=== PATIENT | male | born 1930 | race Caucasian/White ===

== ENCOUNTER 2017-05-02 09:52 | Inpatient (IN) | payer MEDICARE, OTHER ==
[2017-05-02] MEDS ORDERED: ALBUTEROL SULFATE 0.083% NEB 2.5 MG/3 ML AMPUL NEB ONE (10:16)
--- NOTE | 2017-05-02 10:21 | ER Document Report ---
ED Respiratory Problem - General Mode of Arrival: Medic Information source: Patient, Emergency Med Personnel TRAVEL OUTSIDE OF THE [place] IN LAST 30 DAYS: No - HPI Patient complains to provider of: COPD, Short of breath Onset: Other - 2 days ago Context: Hx COPD At home treatment: Bronchodilators EMS treatments: Bronchodilators, CPAP, Epinephrine - with magnesium, Solumedrol Associated symptoms: Other - see notes above <MAGDALENO MICHEL - Last Filed: 05/02/17 16:18> <CLIVE REYES - Last Filed: 05/02/17 19:07> - General Chief Complaint: Shortness Of Breath Stated Complaint: RESPIRATORY DISTRESS Time Seen by Provider: 05/02/17 10:02 Notes: 87 year old male with history of COPD presents to the ED via EMS complaining of shortness of breath for the past 2 days. Patient uses an inhaler at home and reports that it was mildly helping yesterday, but was having little relief from it this morning. Patient denies chest pain or fever. EMS reports that the patient was in respiratory distress when they arrived. They had to walk the patient a short distance to help him onto the stretcher and EMS reports almost absent lung sounds following the walk. Patient was given 2 Albuterol, 1 Solumedrol, Epi, and Magnesium and placed on CPAP. Patient has an appointment with his primary care physician, Dr. Casanova, today at 1445. (MAGDALENO MICHEL) - Related Data Allergies/Adverse Reactions: No Known Allergies Allergy (Unverified 05/02/17 10:38) Home Medications: Current Home Medications Amlodipine Besylate/Valsartan [Amlodipine-Valsartan 5-320 mg] 1 tab PO QHS 05/02 [History] Furosemide [Lasix 40 mg Tablet] 40 mg PO QAM 05/02/17 [History] Levalbuterol HCl [Xopenex Neb 0.63 mg/3 ml Ampul] 0.63 mg NEB [id number] PRN [History] Multivitamin [Tab-A-Jadiel (Multiple Vitamin) Tablet] 1 tab PO DAILY 05/02/17 [ History] Timolol [Betimol] 1 drop OU QHS 05/02/17 [History] Past Medical History - General Information source: Patient - Social History Smoking Status: Never Smoker Chew tobacco use (# tins/day): No Frequency of alcohol use: None Drug Abuse: None Family History: Reviewed & Not Pertinent - Past Medical History Cardiac Medical History: Denies: Hx Congestive Heart Failure, Hx Heart Attack Pulmonary Medical History: Reports: Hx COPD Neurological Medical History: Denies: Hx Cerebrovascular Accident Surgical Hx: Negative <MICHELMAGDALENO - Last Filed: 05/02/17 16:18> Review of Systems - Review of Systems Constitutional: No symptoms reported. denies: Fever EENT: No symptoms reported Cardiovascular: No symptoms reported. denies: Chest pain Respiratory: See HPI, Short of breath Gastrointestinal: No symptoms reported Genitourinary: No symptoms reported Male Genitourinary: No symptoms reported Musculoskeletal: No symptoms reported Skin: No symptoms reported Hematologic/Lymphatic: No symptoms reported Neurological/Psychological: No symptoms reported -: Yes All other systems reviewed and negative <MICHELMAGDALENO - Last Filed: 05/02/17 16:18> Physical Exam <MAGDALENO MICHEL - Last Filed: 05/02/17 16:18> <CLIVE REYES - Last Filed: 05/02/17 19:07> - Vital signs Vitals: Resp Pulse Ox 21 H 95 05/02/17 10:03 05/02/17 10:03 - Notes Notes: GENERAL: Alert, interacts well. HEAD: Normocephalic, atraumatic. EYES: Pupils equal, round, and reactive to light. Extraocular movements intact. ENT: Oral mucosa moist, tongue midline. NECK: Full range of motion. Supple. Trachea midline. 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 LUNGS: Crackles at the bilateral bases with trace expiratory wheezing. No rales or rhonchi. Patient appears comfortable on BiPAP. Not hypoxic. HEART: Bradycardic with regular rhythm. No murmurs, gallops, or rubs. ABDOMEN: Soft, non-tender. Non-distended. Bowel sounds present in all 4 quadrants. Soft, reducible, non-tender umbilical hernia. EXTREMITIES: Moves all 4 extremities spontaneously. Radial and dorsalis pedis pulses 2/4 bilaterally. No cyanosis. 2+ pitting edema to the level of the knees , bilaterally. Bilateral erythema one-third of the way up to the knees. NEUROLOGICAL: Alert and oriented x3. Normal speech. PSYCH: Normal affect, normal mood. SKIN: Warm and dry. (MAGDALENO MICHEL) Course - Laboratory Result Diagrams: 05/02/17 10:15 05/02/17 10:15 - Consults Marco A Peterson Time consulted: 12:20 <MAGDALENO MICHEL - Last Filed: 05/02/17 16:18> - Laboratory Result Diagrams: 05/02/17 10:15 05/02/17 10:15 <CLIVE REYES - Last Filed: 05/02/17 19:07> - Re-evaluation Re-evalutation: 05/02/17 19:06 CBC shows leukocytosis of 13.5, no anemia, regular platelets, renal failure with a BUN of 31 and a creatinine 1.51 is seen on chemistries, cardiac enzymes reveal indeterminate troponin at 0.088, proBNP is markedly elevated at 9000, urinalysis shows large leukocyte esterase and 29 WBCs. Patient is completely asymptomatic, this will be sent for culture but not treated at this time. Chest x-ray shows right sided pneumonia. Patient will be treated both for pneumonia and acute congestive heart failure. Patient was also given breathing treatments for COPD exacerbation. Discussed case with Dr. Canchola who asked me to discuss with Marco A Peterson the nurse practitioner who accepted the patient as an admission. Placed on the IMCU. (CLIVE REYES) - Vital Signs Vital signs: Temp Pulse Resp BP Pulse Ox 98.2 F 46 L 24 H 130/33 H 99 05/02/17 18:20 05/02/17 18:20 05/02/17 18:20 05/02/17 18:20 05/02/17 18:20 - Laboratory Laboratory results interpreted by me: 05/02/17 05/02/17 05/02/17 10:15 10:15 10:15 WBC 13.5 H RDW 14.7 H Seg Neutrophils % 82.1 H Lymphocytes % 8.3 L Absolute Neutrophils 11.1 H BUN 31 H Creatinine 1.51 H Est GFR ( Amer) 53 L Est GFR (Non-Af Amer) 44 L Glucose 145 H Direct Bilirubin 0.5 H NT-Pro-B Natriuret Pep 9000 H Total Protein 5.9 L Ur Leukocyte Esterase Urine Ascorbic Acid 05/02/17 12:28 WBC RDW Seg Neutrophils % Lymphocytes % Absolute Neutrophils BUN Creatinine Est GFR ( Amer) Est GFR (Non-Af Amer) Glucose Direct Bilirubin NT-Pro-B Natriuret Pep Total Protein Ur Leukocyte Esterase LARGE H Urine Ascorbic Acid 40 H - EKG Interpretation by Me Additional EKG results interpreted by me: 05/02/17 19:07 EKG shows sinus rhythm at a rate of 72, first-degree AV block, multiple PACs, right bundle branch block, no ST segment elevations or depressions per my interpretation. (CLIVE REYES) - Consults Marco A Peterson Reason for consultation: 05/02/17 12:20 Patient was discussed with Marco A Peterson who agrees to admit the patient. (MAGDALENO MICHEL) Discharge <MAGDALENO MICHEL - Last Filed: 05/02/17 16:18> - Discharge Admitting Provider: [facility] Admitted: IMCU <CLIVE REYES - Last Filed: 05/02/17 19:07> - Discharge Clinical Impression: Acute respiratory failure with hypoxia CHF (congestive heart failure) Qualifiers: Congestive heart failure type: unspecified congestive heart failure type Congestive heart failure chronicity: acute Qualified Code(s): I50.9 - Heart failure, unspecified ARF (acute renal failure) Qualifiers: Acute renal failure type: unspecified Qualified Code(s): N17.9 - Acute kidney failure, unspecified Right lower lobe pneumonia Qualifiers: Pneumonia type: due to unspecified organism Qualified Code(s): J18.1 - Lobar pneumonia, unspecified organism Condition: Fair Disposition: ADMITTED INPATIENT Scribe Attestation: 05/02/17 19:06 I personally performed the services described in the documentation, reviewed and edited the documentation which was dictated to the scribe in my presence, and it accurately records my words and actions. (CLIVE REYES) Scribe Documentation - Scribe Written by Angyibe:: Scarlett Boyer, 05/02/2017 1027 acting as scribe for :: Eneida <MAGDALENO MICHEL - Last Filed: 05/02/17 16:18>
[2017-05-02 10:28] LABS: ABSOLUTE BASOPHILS # (AUTO) 0.1 10^3/uL (0.0-0.2); ABSOLUTE EOSINOPHILS # (AUTO) 0.2 10^3/uL (0.0-0.6); ABSOLUTE LYMPHOCYTES (AUTO) 1.1 10^3/uL (0.5-4.7); ABSOLUTE NEUT (AUTO) 11.1 10^3/uL (1.7-8.2); BASOPHILS % (AUTO) 1.1 % (0-2); EOSINOPHILS % (AUTO) 1.2 % (0-6); HEMATOCRIT 47.4 % (37.9-51.0); HEMOGLOBIN 15.5 g/dL (13.5-17.0); LYMPHOCYTES % (AUTO) 8.3 % (13-45); MEAN CORPUSCULAR HEMOGLOBIN 30.9 pg (27.0-33.4); MEAN CORPUSCULAR HGB CONC 32.6 g/dL (32.0-36.0); MEAN CORPUSCULAR VOLUME 95 fl (80-97); MONOCYTES % (AUTO) 7.3 % (3-13); PLATELET COUNT 301 10^3/uL (150-450); RED CELL DISTRIBUTION WIDTH 14.7 % (11.5-14.0); SEGMENTED NEUTROPHILS % (AUTO) 82.1 % (42-78); TOTAL CELLS COUNTED % (AUTO) 100 %; WHITE BLOOD COUNT 13.5 10^3/uL (4.0-10.5)
[2017-05-02 10:44] LABS: ALANINE AMINOTRANSFERASE 53 U/L (21-72); ALBUMIN 3.9 g/dL (3.5-5.0); ALKALINE PHOSPHATASE 97 U/L (38-126); ANION GAP 13 (5-19); ASPARTATE AMINO TRANSFERASE 40 U/L (17-59); BILIRUBIN,DIRECT 0.5 mg/dL (0.0-0.4); BLOOD UREA NITROGEN 31 mg/dL (7-20); CALCIUM 9.4 mg/dL (8.4-10.2); CARBON DIOXIDE 25 mmol/L (22-30); CHLORIDE 104 mmol/L (98-107); CREATINE KINASE 58 U/L (55-170); GLUCOSE 145 mg/dL (75-110); SODIUM 141.9 mmol/L (137-145); TOTAL PROTEIN 5.9 g/dL (6.3-8.2)
--- NOTE | 2017-05-02 10:53 | RADIOLOGY REPORT (SQ) ---
EXAM DESCRIPTION: CHEST SINGLE VIEW COMPLETED DATE/TIME: 05/02/2017 10:37 am REASON FOR STUDY: sob COMPARISON: 10/05/2007. EXAM PARAMETERS: NUMBER OF VIEWS: One view. TECHNIQUE: Single frontal radiographic view of the chest acquired. RADIATION DOSE: NA LIMITATIONS: None. FINDINGS: LUNGS AND PLEURA: Probable chronic interstitial scarring particularly in the lung bases. Ill-defined parenchymal opacities in the right lung. Possible small pleural effusions. MEDIASTINUM AND HILAR STRUCTURES: No masses. Contour normal. HEART AND VASCULAR STRUCTURES: Heart normal in size. Normal vasculature. BONES: No acute findings. HARDWARE: None in the chest. OTHER: No other significant finding. IMPRESSION: PROBABLE CHRONIC SCARRING. SUSPECT PNEUMONIA IN THE RIGHT LUNG. POSSIBLE SMALL PLEURAL EFFUSIONS. TECHNICAL DOCUMENTATION: JOB ID: [id number] [employer]- All Rights Reserved
[2017-05-02 10:55] LABS: CREATINE KINASE MB 3.15 ng/mL (<4.55)
[2017-05-02 11:01] LABS: TROPONIN I 0.088 ng/mL
[2017-05-02] MEDS ORDERED: FUROSEMIDE INJ/PF 40 MG/4 ML SDV IV ONE (11:05)
[2017-05-02] MEDS ORDERED: CEFTRIAXONE 1 GM/D5W RTU 1 GM/50 ML RTUPB IV ONE (12:13)
[2017-05-02 12:43] LABS: APPEARANCE,URINE SLIGHTLY-CLOUDY; BILIRUBIN,URINE NEGATIVE (NEGATIVE); COLOR,URINE YELLOW; GLUCOSE, URINE NEGATIVE (NEGATIVE); KETONES,URINE NEGATIVE (NEGATIVE); LEUKOCYTE ESTERASE,URINE LARGE (NEGATIVE); NITRITE,URINE NEGATIVE (NEGATIVE); PROTEIN,URINE NEGATIVE (NEGATIVE); UROBILINOGEN,URINE NEGATIVE mg/dL (<2.0)
[2017-05-02] MEDS ORDERED: ONDANSETRON 4 MG TAB.RAPDIS PO PRN (12:54)
[2017-05-02] MEDS ORDERED: ALBUTEROL SULFATE 0.083% NEB 2.5 MG/3 ML AMPUL NEB PRN (12:54)
[2017-05-02] MEDS ORDERED: ACETAMINOPHEN 325 MG TABLET PO PRN (12:54)
[2017-05-02] MEDS ORDERED: DOXYCYCLINE HYCLATE 100 MG in DEXTROSE 5%-WATER 250 ML IV ONE (14:30)
--- NOTE | 2017-05-02 15:13 | HISTORY AND PHYSICAL E ---
History and Physical NAME: ZARIA ALMAGUER : 1930 AGE: 87Y ADMITTED: 05/02/2017 ROOM: ED12 PRIMARY CARE PROVIDER: Laurence Casanova. BLEACHER PULP: Dr. Nash. CHIEF COMPLAINT: Shortness of breath. HISTORY OF PRESENT ILLNESS: The patient is an 87-year-old male with a past medical history of hypertension and presumed congestive heart failure of uncertain classification. The patient presented to the emergency department with a chief complaint of shortness of breath. According to the patient, he became dyspneic about 2 days ago. The patient uses a home inhaler at home and stated that it was only mildly helping and he continued to leave. The patient denied any chest pain or fever. The patient's symptoms persisted. He then began producing some yellow sputum. The patient also noted edema of his lower extremities. The patient's family visited him and were concerned and notified EMS. Upon EMS arrival the patient was found to be in respiratory distress and the patient was unable to tolerate walking even a short distance. The patient was so distressed that he was given 2 of albuterol, 1 of Solu-Medrol, a dose of epinephrine as well as magnesium and was placed on CPAP. The patient did have some mild improvement of symptoms en route; however, upon presentation to the emergency department, the patient did still have significant work of breathing, was found to be refractive and tachypneic with respirations in the 40s. The patient subsequently was diuresed with Lasix and was placed on BiPAP. The patient additionally had findings on chest x-ray that was concerning for pneumonia as well as a mildly elevated white count at 13.5. Given that and his sputum production, the patient was also covered with Rocephin for pneumonia. Additionally it appears that the patient does have an element of acute kidney injury with a creatinine of 1.51 and a BNP of 9000. Given these findings, the patient has been referred to the hospitalist for admission and management. PAST MEDICAL HISTORY: 1. Hypertension. 2. Chronic obstructive pulmonary disease. PAST SURGICAL HISTORY: Negative. ALLERGIES: No known drug allergies. HOME MEDICATIONS: 1. Amlodipine/valsartan 5/320 one tablet p.o. daily. 2. Lasix 40 mg p.o. q.a.m. 3. Xopenex 0.63 mg neb q.8 h. p.r.n. 4. Timolol 5 mL in both eyes. SOCIAL HISTORY: The patient currently resides at home alone. He is a . The patient's surrogate decision maker is his daughter, Krissy Peralta who may be reached at [phone] or [phone]. The patient denies any history of alcohol use or illicit drug use. No history of tobacco use. FAMILY MEDICAL HISTORY: The patient's father is and the patient's mother of old age. The patient's father had health problems. The patient has 3 daughters all of which are healthy. REVIEW OF SYSTEMS: CONSTITUTIONAL: The patient denies any fevers, chills, dizziness, no loss of appetite. He does admit to overall weakness. SKIN: The patient denies any diaphoresis, rash, bruising or itching. HEENT: The patient denies any vision or hearing loss, nasal drainage, sore throat, or headache. CARDIOVASCULAR: The patient denies any chest pain or heart palpitations. Does admit to lower extremity edema. RESPIRATORY: The patient denies any of hemoptysis but admits to a strong cough with sputum production. GASTROINTESTINAL: Denies any nausea, vomiting, diarrhea, abdominal pain, bloating, hematemesis, constipation, melena, hematochezia. No epigastric pain. GENITOURINARY: Denies any hematuria, pyuria or dysuria. MUSCULOSKELETAL: The patient denies any acute joint pains. Does admit to neuropathies of his lower extremities. NEUROLOGIC: No seizures, tremors or loss of consciousness. HEMATOLOGIC: No history of moses bleeding or easy bruising. ENDOCRINE: Denies any recent weight changes. PSYCHIATRIC: Denies suicidal or homicidal ideation. The rest of the review of the other organ systems is negative. PHYSICAL EXAMINATION: GENERAL: On examination, the patient is a well-developed, well-nourished 87-year-old male who is awake, alert and oriented to person, place, time and situation. He is verbal, does appear to be in some mild respiratory distress. VITAL SIGNS: Temperature 98.9, pulse 57, respirations 21, blood pressure 130/86, oxygen saturation is 93% on 35% FiO2 on BiPAP. SKIN: Warm and dry. No rash. She is not diaphoretic. HEENT: Pupils are equal, round, and reactive to light and accommodation. Conjunctivae are reddened especially on the right. Sclerae are not icteric. There are no mouth lesions. Tongue is midline. NECK: Supple. No JVD. No palpable lymphadenopathy or thyromegaly. CARDIOVASCULAR: Heart is regular. There is no murmur or rub. CHEST: Rales with some expiratory wheezes. ABDOMEN: Soft, nontender, nondistended. Bowel sounds are present. No palpable organomegaly. BACK: No CVA tenderness. The patient does have sacral edema. EXTREMITIES: No clubbing or cyanosis. The patient does have bilateral lower extremity dependent edema with no peripheral signs of embolization. +1 pedal pulses are noted bilaterally. All 4 extremities are appropriately warm to touch. PSYCHIATRIC: Appropriate affect, pleasant mood. DIAGNOSTICS: Labs are as follows: Hematology on 05/02/2017: WBCs are 13.5, hemoglobin 15.5, hematocrit 47.4, and platelet count is 301,000. Chemistry obtained on 05/02/2017: Sodium 141, potassium 5.0, chloride 104, carbon dioxide 25, BUN 31, creatinine 0.51, glucose 145, calcium 9.4, bilirubin 1, AST 40, ALT 63, alkaline phosphatase 97, total protein 5.9, albumin 3.9. CK-MB 3.15, troponin is 0.088, BNP is 9000. IMPRESSION AND PLAN: 1. Acute hypoxemic respiratory failure. Most likely this is a component of community-acquired pneumonia as well as possible congestive heart failure. Will cover the patient with coverage for community-acquired pneumonia as well as continue to diuresis the patient. The patient overall does feel improved. We will also obtain echocardiogram and follow. The patient for now has improved with BiPAP. Will maintain sats greater than 88%. 2. Chronic obstructive pulmonary disease. The patient is not on any chronic inhalers. Will just nebulizers and follow. The patient does not sound tight or wheezing. 3. Acute kidney injury. Uncertain etiology of this. Will obtain bladder scan to ensure the patient does not have obstructive uropathy. This could be a component of failure due to his possible heart failure. Will repeat chemistry in the a.m. as well as follow up bladder scan. 4. Abnormal urinalysis. Will add urine culture. 5. Hypertension. The patient's blood pressures are overall in acceptable range. Will hold blood pressure medications for now in the event we need some pressure to work with. DISPOSITION: The patient is a DO NOT RESUSCITATE/DO NOT INTUBATE, as the patient has expressed his desire for natural . Pending patient's symptomatology and diagnostic findings, will evaluate in the a.m. Will admit the patient to inpatient IMCU, as the patient's expected length of stay should surpass 2 midnights. Time spent on this admission including assessment, plan, physical examination, patient education, family meeting, and review of records is 55 minutes. DICTATING PHYSICIAN: DANIELLE LOTT NP [id number] PHY#: [id number] [id number] JOB#: [id number] ACCT: [id number] cc:DANIELLE LOTT NP > MTDD
[2017-05-02] MEDS: HEPARIN SOD (PORCINE) 5,000 UNIT/ML 1 ML SYRINGE SUBCUT SCH ×2 (15:27→21:36)
[2017-05-02] MEDS: FUROSEMIDE INJ/PF 40 MG/4 ML SDV IV SCH (19:55)
--- NOTE | 2017-05-02 20:06 | XCELERA REPORT ---
[address] [address] Transthoracic Echocardiogram Report Name: ZARIA ALMAGUER Age: 87 yrs Gender: Male : 1930 Patient Status: Inpatient Patient Location: [place] [address]^A Study Date: 05/02/2017 02:26 PM Height: 67 in Weight: 178 lb BSA: 1.9 m2 Procedure: A complete two-dimensional transthoracic echocardiogram was performed (2D, M-mode, spectral and color flow Doppler). The study was technically difficult with many images being suboptimal in quality. Reason For Study: Edema, dyspnea Ordering Physician: DANIELLE LOTT Performed By: Trinidad Banks Interpretation Summary Severe to critical Aortic Stenosis noted. There is a peak gradient of 100- 120 mm of Hg/mean gradient 60-70mmHg. The study was technically difficult with many images being suboptimal in quality. The left ventricular ejection fraction is normal. There is mild concentric left ventricular hypertrophy. The left ventricle is grossly normal size. Doppler measurements suggest reversible restrictive left ventricular relaxation, which is associated with grade III/IV or moderate diastolic dysfunction Wall motion cannot be accurately commented on, but no definite regional wall motion abnormalities noted. There is severe aortic stenosis There is a mild amount of aortic regurgitation The aortic valve is not well visualized secondary to technical limitations There is a mild amount of tricuspid regurgitation There is mild to moderate pulmonary hypertension by echo Right ventricular systolic pressure is estimated to be elevated at 40- 50mmHg. There is a mild amount of mitral regurgitation There is no mitral valve stenosis. The inferior vena cava appeared dilated and decreased < 50% with respiration (RAP 15-20 mmHg) Minimal pericardial effusion. MMode/2D Measurements & Calculations RVDd: 2.3 cm LVIDd: 5.2 cm FS: 37.9 % Ao root diam: 2.5 cm IVSd: 1.1 cm LVIDs: 3.2 cm EDV(Teich): 127.9 ml LVPWd: 1.00 cmESV(Teich): 41.3 ml Ao root area: 5.0 cm2 EF(Teich): 67.7 % LA dimension: 4.0 cm LVOT diam: 2.1 cm LVOT area: 3.5 cm2 Doppler Measurements & Calculations MV E max lianne: MV P1/2t max lianne: Ao V2 max: AI max lianne: 113.5 cm/sec 114.5 cm/sec 601.3 cm/sec 287.8 cm/sec MV A max lianne: MV P1/2t: 37.8 msec Ao max PG: AI max P.9 cm/sec MVA(P1/2t): 5.8 cm2 145.0 mmHg 33.1 mmHg MV E/A: 2.5 MV dec slope: Ao V2 mean: AI dec slope: 887.8 cm/sec2 400.6 cm/sec 96.3 cm/sec2 MV dec time: Ao mean PG: AI P1/2t: 0.12 sec 77.0 mmHg 875.4 msec Ao V2 VTI: 166.5 cm TIGIST(I,D): 0.58 cm2 TIGIST(V,D): 0.54 cm2 LV V1 max PG: SV(LVOT): 97.2 ml PA V2 max: TR max lianne: 3.4 mmHg 87.4 cm/sec 365.1 cm/sec LV V1 mean PG: PA max PG: TR max P.0 mmHg 3.1 mmHg 53.3 mmHg LV V1 max: 92.8 cm/sec LV V1 mean: 65.9 cm/sec LV V1 VTI: 27.6 cm Left Ventricle The left ventricle is grossly normal size. There is mild concentric left ventricular hypertrophy. The left ventricular ejection fraction is normal. Doppler measurements suggest reversible restrictive left ventricular relaxation, which is associated with grade III/IV or moderate diastolic dysfunction. Wall motion cannot be accurately commented on, but no definite regional wall motion abnormalities noted. Right Ventricle The right ventricle is grossly normal size. The right ventricle appears to be hypertrophied. The right ventricular systolic function is normal. Atria The right atrium is normal in size. The left atrium is mildly dilated. Interarterial septum not well visualized and not well dopplered. Cannot comment on ASD/PFO presence. Mitral Valve The mitral valve is grossly normal. There is no mitral valve stenosis. There is a mild amount of mitral regurgitation. Aortic Valve The aortic valve is not well visualized secondary to technical limitations. There is severe aortic stenosis. There is a peak gradient of 100-120 mm of Hg. There is a mild amount of aortic regurgitation. Tricuspid Valve The tricuspid valve is not well visualized, but is grossly normal. There is no tricuspid stenosis. There is a mild amount of tricuspid regurgitation. There is mild to moderate pulmonary hypertension by echo. Right ventricular systolic pressure is estimated to be elevated at 40-50mmHg. Pulmonic Valve The pulmonic valve is not well visualized. Great Vessels The aortic root is not well visualized. The inferior vena cava appeared dilated and decreased < 50% with respiration (RAP 15-20 mmHg). Effusions Minimal pericardial effusion. : DANIELLE LOTT > [employer]
[2017-05-02] MEDS: DOXYCYCLINE HYCLATE 100 MG in DEXTROSE 5%-WATER 250 ML IV SCH (21:40)
[2017-05-03] MEDS: HEPARIN SOD (PORCINE) 5,000 UNIT/ML 1 ML SYRINGE SUBCUT SCH ×3 (05:48→22:11)
[2017-05-03 06:02] LABS: HEMATOCRIT 40.3 % (37.9-51.0); MEAN CORPUSCULAR HGB CONC 33.2 g/dL (32.0-36.0); MEAN CORPUSCULAR VOLUME 93 fl (80-97); PLATELET COUNT 232 10^3/uL (150-450); RED BLOOD COUNT 4.32 10^6/uL (4.35-5.55); RED CELL DISTRIBUTION WIDTH 14.8 % (11.5-14.0); WHITE BLOOD COUNT 8.7 10^3/uL (4.0-10.5)
[2017-05-03 06:13] LABS: ANION GAP 9 (5-19); BLOOD UREA NITROGEN 33 mg/dL (7-20); CALCIUM 8.9 mg/dL (8.4-10.2); CARBON DIOXIDE 26 mmol/L (22-30); CHLORIDE 107 mmol/L (98-107); GLUCOSE 124 mg/dL (75-110); HEMOGLOBIN 13.4 g/dL (13.5-17.0); MAGNESIUM 2.5 mg/dL (1.6-2.3); POTASSIUM 4.3 mmol/L (3.6-5.0); SODIUM 141.6 mmol/L (137-145)
--- NOTE | 2017-05-03 07:55 | EKG REPORT ---
SEVERITY:- ABNORMAL ECG - SINUS RHYTHM SUPRAVENTRICULAR BIGEMINY FIRST DEGREE AV BLOCK PROBABLE LEFT ATRIAL ABNORMALITY RIGHT BUNDLE BRANCH BLOCK : Confirmed by: Jade Tomlin MD 03-May-2017 07:54:36
[2017-05-03] MEDS: DOXYCYCLINE HYCLATE 100 MG in DEXTROSE 5%-WATER 250 ML IV SCH ×2 (09:38→22:11)
[2017-05-03] MEDS: FUROSEMIDE INJ/PF 40 MG/4 ML SDV IV SCH ×2 (09:38→17:15)
[2017-05-03] MEDS ORDERED: DULOXETINE HCL 30 MG CAPSULE.DR PO ONE (15:21)
[2017-05-03] MEDS ORDERED: GUAIFENESIN 600 MG TABLET.SA PO ONE (15:35)
--- NOTE | 2017-05-03 17:03 | PROGRESS NOTE E ---
Progress Note NAME: ZARIA ALMAGUER : 1930 AGE: 87Y DATE: 05/03/2017 ROOM: 331 SUBJECTIVE: The patient is currently lying in bed. He states that he feels overall much improved. The patient denies any nausea, vomiting or diarrhea, no dizziness or chest pain. The patient has ambulated with physical therapy and the patient states that he feels better than on admission. REVIEW OF SYSTEMS: Rest of review of systems is negative. MEDICATIONS: Medications have been reviewed. OBJECTIVE: GENERAL: The patient is an 87-year-old male who is awake and alert. He is oriented to person, place, time and situation. He is verbal and conversational and does not appear to be distressed. VITAL SIGNS: Temperature is 97.4, pulse 47, respirations 21, blood pressure 114/83, oxygen saturation is 98% on 3 L nasal cannula. SKIN: Warm and dry. No rashes, not diaphoretic. HEENT: Pupils are equal, round, reactive to light and accommodation. Conjunctivae pink. No JVP. CARDIOVASCULAR: Heart is regular. The patient does have a 4/6 pansystolic murmur. CHEST: Rhonchorous in the upper lung mccann. Symmetrical and unlabored. ABDOMEN: Soft, nontender and nondistended. BACK: No CVA tenderness or sacral edema. EXTREMITIES: No clubbing, cyanosis or edema. PSYCHIATRIC: Appropriate affect, pleasant mood. DIAGNOSTIC DATA: Lab values are as follows: Hematology obtained on 05/03/2017: WBC is 8.7, hemoglobin 13.4, hematocrit 40.3, and platelet count is 232,000. Chemistries obtained on 05/03/2017: Sodium is 141, potassium 4.3, chloride 107, carbon dioxide 26, BUN 33, creatinine 1.48, glucose 124, calcium 8.9, magnesium is 2.5. IMPRESSION AND PLAN: 1. COMMUNITY-ACQUIRED PNEUMONIA. The patient has responded very well to doxycycline. Will continue this. I chose this option due to the patient's also possible sinusitis. Will add Mucinex, continue incentive spirometry, encourage flutter valve and follow. 2. CHRONIC OBSTRUCTIVE PULMONARY DISEASE. The patient does not have any evidence of wheezing at this time, so will defer steroids but continue nebs as needed. 3. RPOIW-DI-LDDKIRU HYPOXEMIC RESPIRATORY FAILURE. Overall the patient appears somewhat improved. 4. CRITICAL AORTIC STENOSIS. Bradycardia, 3/4 diastolic dysfunction, restrictive ventricle, moderate pulmonary hypertension. Will consult Cardiology for input. 5. CHRONIC KIDNEY DISEASE. Initially thought this may be an TOMAS; however, given the patient's aortic stenosis and previous available creatinine from 2 years ago that shows a creatinine of 1.2, it is likely that the patient is at baseline, however, will follow. 6. URINARY RETENTION. Will start the patient on Flomax. Did have to have a Iverson placed, as the patient was retaining 700 mL of urine. Most likely this was due to the patient's excessive beta stimulation from his nebs. 7. HYPERTENSION. Blood pressures have been in acceptable range. Will withhold medication for now and await for Cardiology input. 8. ABNORMAL URINALYSIS. The patient was in retention. Urine culture is pending. DISPOSITION: The patient is a DO NOT RESUSCITATE/DO NOT INTUBATE. Pending the patient's symptomatology and diagnostic findings, will re-evaluate in the a.m. TIME SPENT: On this followup including assessment, plan, physical examination, patient education, and specialty collaboration is 40 minutes. DICTATING PHYSICIAN: DANIELLE LOTT NP [id number] PHY#: [id number] ID: [id number] JOB#: [id number] ACCT: [id number] cc: >
[2017-05-03] MEDS: TAMSULOSIN HCL 0.4 MG CAP.SR.24H PO SCH (17:15)
--- NOTE | 2017-05-03 19:59 | PDOC CONSULTATION ---
Consultation Consult Date: 05/03/17 Attending physician:: GERHARD ZAMBRANO Consult reason:: Shortness of breath History of Present Illness Admission Date/PCP: 05/02/17 12:40 Patient complains of: Shortness of breath and pedal edema History of Present Illness: 87 year old male with history of COPD presents to the ED via EMS complaining of shortness of breath for the past 2 days. Patient uses an inhaler at home and reports that it was mildly helping yesterday, but was having little relief from it this morning. Patient denies chest pain or fever. EMS reports that the patient was in respiratory distress when they arrived. They had to walk the patient a short distance to help him onto the stretcher and EMS reports almost absent lung sounds following the walk. Patient was given 2 Albuterol, 1 Solumedrol, Epi, and Magnesium and placed on CPAP. This history was reviewed and confirmed. Patient denied any chest pain as such. Patient describes history of heart valve problems especially with leaking aortic valve but claims that he does not want surgery and is being treated medically. Patient has noted some increasing pedal edema and several days of increasing shortness of breath. This history was reviewed and confirmed. Past Medical History Cardiac Medical History: Reports: Hypertension, Other - Valvular heart disease Denies: Congestive Heart Failure, Myocardial Infarction Pulmonary Medical History: Reports: Chronic Obstructive Pulmonary Disease (COPD) Psychiatric Medical History: Denies: Depression Social History Information Source: Patient Smoking Status: Former Smoker Last Time Smoked: 1985 Frequency of Alcohol Use: Rare Hx Recreational Drug Use: No Drugs: None Hx Prescription Drug Abuse: No - Advance Directive Resuscitation Status: Do Not Resuscitate Surrogate healthcare decision maker:: Patient's daughter is the surrogate decision-maker Family History Family History: Hypertension Parental Family History Reviewed: Yes Children Family History Reviewed: Yes Sibling(s) Family History Reviewed.: Yes Medication/Allergy Home Medications: Amlodipine Besylate/Valsartan [Amlodipine-Valsartan 5-320 mg] 1 tab PO QHS 05/02 Furosemide [Lasix 40 mg Tablet] 40 mg PO QAM 05/02/17 Levalbuterol HCl [Xopenex Neb 0.63 mg/3 ml Ampul] 0.63 mg NEB [id number] PRN Multivitamin [Tab-A-Jadiel (Multiple Vitamin) Tablet] 1 tab PO DAILY 05/02/17 Timolol [Betimol] 1 drop OU QHS 05/02/17 Allergies/Adverse Reactions: No Known Allergies Allergy (Unverified 05/02/17 10:38) Review of Systems Review of Systems: Please see history of present illness and past medical history as wall. Constitutional: No fever or chills reported. Head : No recent chronic headaches, recent head injury. Eyes: No recent eye pain, diplopia, redness, discharge, acute visual changes. Ears: No recent chronic ear pain, acute hearing loss, ear discharge. Oral cavity: No recent ulcerations, bleeding, oral cavity discomfort. Neck: No recent acute neck pain reported. Hematologic: No recent easy bruising or bleeding or hematologic malignancy reported. Lymphatic: No recent lymphatic malignancy, chronic lymphadenopathy reported yet Cardiovascular system review: See history of present illness. Respiratory system review: Noted cough with some sputum production but denied hemoptysis, blood clots in the lungs reported. Mild Shortness of breath on exertion Gastrointestinal system review: Negative for any recent acute or chronic abdominal pain, hematemesis, melena, recent change in bowel habits. Genitourinary system review: No recent acute or chronic hematuria, flank pain, UTI etc. reported. Skin system review: Negative for any recent abnormal bruising, no rash, no pruritus reported. Neurologic: No prior history of strokes, mini strokes, seizure disorder. Psychologic: No history of major psychosis or major depression reported. Musculoskeletal: Minor aches and pains reported. No acute joint swelling reported. Endocrine: No recent polyuria, polydipsia, recent heat or cold intolerance. Physical Exam Vital Signs: Temp Pulse Resp BP Pulse Ox 97.4 F 44 L 19 114/40 L 97 05/03/17 15:59 05/03/17 15:59 05/03/17 15:59 05/03/17 15:59 05/03/17 15:59 Intake & Output 05/02/17 05/03/17 05/04/17 06:59 06:59 06:59 Intake Total 305 934 Output Total 1100 400 Balance -795 534 Weight 80.6 kg Exam: GENERAL: well-nourished and in no acute distress. Alert and oriented x3 HEAD: Atraumatic, normocephalic. EYES: Pupils equal round and reactive to light, extraocular movements intact, sclera anicteric, conjunctiva are normal. ENT: TMs normal, nares patent, oropharynx clear without exudates. Moist mucous membranes. No oral ulcerations or bleeding gums noted NECK: supple without lymphadenopathy. Trachea is central. No cervical or axillary lymphadenopathy noted. Carotids are 2+, JVD 8-10 cm LUNGS: Respiration seems nonlabored, no significant accessory muscle action noted. Bibasilar fine crackles and few wheezes rales or rhonchi noted. No significant dullness noted on percussion. CHEST: Palpation of the chest wall shows no significant chest wall tenderness. No other significant abnormalities noted. 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 ABDOMEN: Soft, no significant tenderness appreciated, normoactive bowel sounds. No guarding, no rebound. No rigidity noted . No masses appreciated. EXTREMITIES: Pedal pulses are 1-2+, no calf tenderness noted. No clubbing or cyanosis. 1-2 + pedal edema noted NEUROLOGICAL: Focused neurological exam showed no significant neurologic deficit. Normal speech, no focal weakness appreciated. PSYCH: Normal mood, normal affect. Judgment and insight within normal limits. SKIN: No significant ecchymosis, rash, ulcerations or signs of pruritus noted. MUSCULOSKELETAL EXAM: No significant joint swelling noted. Results Laboratory Results: 05/03/17 05:34 05/03/17 05:34 05/03/17 05/03/17 05:34 05:34 WBC 8.7 RBC 4.32 L Hgb 13.4 L D Hct 40.3 MCV 93 MCH 31.0 MCHC 33.2 RDW 14.8 H Plt Count 232 Sodium 141.6 Potassium 4.3 Chloride 107 Carbon Dioxide 26 Anion Gap 9 BUN 33 H Creatinine 1.48 H Est GFR ( Amer) 54 L Est GFR (Non-Af Amer) 45 L Glucose 124 H Calcium 8.9 Magnesium 2.5 H EKG Comments: EKG shows sinus rhythm with APCs Impressions: Chest X-Ray 05/02/17 09:56 IMPRESSION: PROBABLE CHRONIC SCARRING. SUSPECT PNEUMONIA IN THE RIGHT LUNG. POSSIBLE SMALL PLEURAL EFFUSIONS. Assessment & Plan - Diagnosis (1) Aortic stenosis Qualifiers: Cardiac valve disease etiology: etiology unspecified Qualified Code(s): I35.0 - Nonrheumatic aortic (valve) stenosis Is this a current diagnosis for this admission?: Yes (2) ARF (acute renal failure) Qualifiers: Acute renal failure type: unspecified Qualified Code(s): N17.9 - Acute kidney failure, unspecified Is this a current diagnosis for this admission?: Yes (3) Acute respiratory failure with hypoxia Is this a current diagnosis for this admission?: Yes (4) CHF (congestive heart failure) Qualifiers: Congestive heart failure type: unspecified congestive heart failure type Congestive heart failure chronicity: acute on chronic Qualified Code(s): I50.9 - Heart failure, unspecified Is this a current diagnosis for this admission?: Yes (5) Right lower lobe pneumonia Qualifiers: Pneumonia type: due to unspecified organism Qualified Code(s): J18.1 - Lobar pneumonia, unspecified organism Is this a current diagnosis for this admission?: Yes - Notes Notes: Aortic stenosis: Patient noted to have severe to critical aortic stenosis. Patient claims that he knew about this condition from before and has declined to pursue any therapeutic intervention. This has been discussed with him before by his primary care line up worker and also today by me. At this point will recommend IV diuretics. Patient does not want resuscitation. Congestive heart failure: Most likely related to diastolic dysfunction and aortic stenosis. Recommend IV diuretic therapy. Right lower lobe pneumonia: Continue with antibiotic therapy. Acute hypoxic respiratory failure: Continue with oxygen supplementation, bronchodilator therapy and antibiotic therapy. Most likely related to COPD with underlying pneumonia. Acute renal failure: [place] to be related to metabolic reasons. Likely to improve with improvement in general condition. Overall prognosis is grave due to progressive aortic stenosis. - Time Time Spent: 30 to 50 Minutes - CODE STATUS was discussed, patient remains full code. Surrogate decision-maker patient's daughter. Multiple medical problems were addressed. More than 50% of the time spent coordinating care, discussing management plans with involved caregivers. Management plans discussed with involved personnels. Medical decision making was of moderate to high complexity , patient's has multiple comorbidities. Medications reviewed and adjusted accordingly: Yes
[2017-05-03] MEDS ORDERED: DULOXETINE HCL 30 MG CAPSULE.DR PO SCH (22:00)
[2017-05-03] MEDS: GUAIFENESIN 600 MG TABLET.SA PO SCH (22:11)
[2017-05-04 06:38] LABS: HEMATOCRIT 41.8 % (37.9-51.0); HEMOGLOBIN 13.9 g/dL (13.5-17.0); MEAN CORPUSCULAR HEMOGLOBIN 30.9 pg (27.0-33.4); MEAN CORPUSCULAR HGB CONC 33.2 g/dL (32.0-36.0); MEAN CORPUSCULAR VOLUME 93 fl (80-97); PLATELET COUNT 236 10^3/uL (150-450); RED BLOOD COUNT 4.48 10^6/uL (4.35-5.55); RED CELL DISTRIBUTION WIDTH 14.7 % (11.5-14.0); WHITE BLOOD COUNT 12.5 10^3/uL (4.0-10.5)
[2017-05-04 06:44] LABS: ANION GAP 10 (5-19); BLOOD UREA NITROGEN 39 mg/dL (7-20); CALCIUM 8.7 mg/dL (8.4-10.2); CARBON DIOXIDE 24 mmol/L (22-30); CHLORIDE 105 mmol/L (98-107); GLUCOSE 99 mg/dL (75-110); MAGNESIUM 2.4 mg/dL (1.6-2.3); POTASSIUM 4.3 mmol/L (3.6-5.0); SODIUM 138.9 mmol/L (137-145)
[2017-05-04] MEDS: HEPARIN SOD (PORCINE) 5,000 UNIT/ML 1 ML SYRINGE SUBCUT SCH ×3 (06:44→22:59)
[2017-05-04] MEDS: FUROSEMIDE INJ/PF 40 MG/4 ML SDV IV SCH ×2 (10:16→18:29)
[2017-05-04] MEDS: GUAIFENESIN 600 MG TABLET.SA PO SCH ×2 (10:18→23:01)
[2017-05-04] MEDS: DOXYCYCLINE HYCLATE 100 MG in DEXTROSE 5%-WATER 250 ML IV SCH ×2 (10:19→23:03)
--- NOTE | 2017-05-04 11:32 | PDOC PROGRESS REPORT ---
Subjective Progress Note for:: 05/04/17 Subjective:: Patient seems to be doing better with gradual improvement. Patient still has intermittent episodes of shortness of breath. Pt is denying any chest arm or neck discomfort. Patient denying any PND, orthopnea. Patient denied any sustained palpitations, dizziness, syncope, near syncope. Patient denying any fever chills. Patient denying any other significant discomfort. Patient is maintaining sinus rhythm. Review of systems: Rest review of systems negative. Medications: Medications have been reviewed. Reason For Visit: CAP Physical Exam Vital Signs: Temp Pulse Resp BP Pulse Ox 97.6 F 42 L 18 132/44 H 96 05/04/17 08:01 05/04/17 08:01 05/04/17 08:01 05/04/17 08:01 05/04/17 08:01 Intake & Output 05/03/17 05/04/17 05/05/17 06:59 06:59 06:59 Intake Total 305 1424 Output Total 1100 700 Balance -795 724 Weight 80.6 kg 76.6 kg Exam: GENERAL: well-nourished and in no acute distress. Alert and oriented x3 HEAD: Atraumatic, normocephalic. EYES: Pupils equal round and reactive to light, extraocular movements intact, sclera anicteric, conjunctiva are normal. ENT: TMs normal, nares patent, oropharynx clear without exudates. Moist mucous membranes. No oral ulcerations or bleeding gums noted NECK: supple without lymphadenopathy. Trachea is central. No cervical or axillary lymphadenopathy noted. Carotids are 2+, JVD 8-10 cm LUNGS: Respiration seems nonlabored, no significant accessory muscle action noted. Bibasilar fine crackles and few wheezes rales or rhonchi noted. No significant dullness noted on percussion. CHEST: Palpation of the chest wall shows no significant chest wall tenderness. No other significant abnormalities noted. 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 ABDOMEN: Soft, no significant tenderness appreciated, normoactive bowel sounds. No guarding, no rebound. No rigidity noted . No masses appreciated. EXTREMITIES: Pedal pulses are 1-2+, no calf tenderness noted. No clubbing or cyanosis. 1-2 + pedal edema noted NEUROLOGICAL: Focused neurological exam showed no significant neurologic deficit. Normal speech, no focal weakness appreciated. PSYCH: Normal mood, normal affect. Judgment and insight within normal limits. SKIN: No significant ecchymosis, rash, ulcerations or signs of pruritus noted. MUSCULOSKELETAL EXAM: No significant joint swelling noted. Results Laboratory Results: 05/04/17 05:55 05/04/17 05:55 05/04/17 05/04/17 05:55 05:55 WBC 12.5 H RBC 4.48 Hgb 13.9 Hct 41.8 MCV 93 MCH 30.9 MCHC 33.2 RDW 14.7 H Plt Count 236 Sodium 138.9 Potassium 4.3 Chloride 105 Carbon Dioxide 24 Anion Gap 10 BUN 39 H Creatinine 1.44 H Est GFR ( Amer) 56 L Est GFR (Non-Af Amer) 46 L Glucose 99 Calcium 8.7 Magnesium 2.4 H EKG Comments: Telemetry strips shows sinus rhythm with frequent APCs. Impressions: Chest X-Ray 05/02/17 09:56 IMPRESSION: PROBABLE CHRONIC SCARRING. SUSPECT PNEUMONIA IN THE RIGHT LUNG. POSSIBLE SMALL PLEURAL EFFUSIONS. Assessment & Plan - Diagnosis (1) Aortic stenosis Qualifiers: Cardiac valve disease etiology: etiology unspecified Qualified Code(s): I35.0 - Nonrheumatic aortic (valve) stenosis Is this a current diagnosis for this admission?: Yes (2) ARF (acute renal failure) Qualifiers: Acute renal failure type: unspecified Qualified Code(s): N17.9 - Acute kidney failure, unspecified Is this a current diagnosis for this admission?: Yes (3) Acute respiratory failure with hypoxia Is this a current diagnosis for this admission?: Yes (4) CHF (congestive heart failure) Qualifiers: Congestive heart failure type: unspecified congestive heart failure type Congestive heart failure chronicity: acute on chronic Qualified Code(s): I50.9 - Heart failure, unspecified Is this a current diagnosis for this admission?: Yes (5) Right lower lobe pneumonia Qualifiers: Pneumonia type: due to unspecified organism Qualified Code(s): J18.1 - Lobar pneumonia, unspecified organism Is this a current diagnosis for this admission?: Yes - Notes Notes: Aortic stenosis: Patient noted to have severe to critical aortic stenosis. Had a long discussion with the patient about percutaneous aortic valve replacement. However he is still not interested in pursuing this option. Patient understands that surgical or interventional option is the only option for aortic valve stenosis. At this point will recommend IV diuretics. Patient does not want resuscitation. Hopefully patient's primary care bass guitar teacher would be able to discuss this further as an outpatient. Congestive heart failure: Most likely related to diastolic dysfunction and aortic stenosis. Recommend IV diuretic therapy., Currently on diuretic therapy which he need to be continued. Right lower lobe pneumonia: Continue with antibiotic therapy. Acute hypoxic respiratory failure: Continue with oxygen supplementation, bronchodilator therapy and antibiotic therapy. Most likely related to COPD with underlying pneumonia. Acute renal failure: [place] to be related to metabolic reasons. Likely to improve with improvement in general condition. Overall prognosis is grave due to progressive aortic stenosis and patient's refusal to consider any operative intervention. - Time Time with patient: Greater than 35 minutes - CODE STATUS : was discussed, patient remains DO NOT RESUSCITATE. Surrogate decision-maker unchanged. Multiple medical problems were addressed. More than 50% of the time spent coordinating care, discussing management plans with involved caregivers. Management plans discussed with involved personnels. Medical decision making was of moderate to high complexity, patient's has multiple comorbidities. Medications reviewed and adjusted accordingly: Yes
[2017-05-04] MEDS: TAMSULOSIN HCL 0.4 MG CAP.SR.24H PO SCH (18:29)
[2017-05-05] MEDS: HEPARIN SOD (PORCINE) 5,000 UNIT/ML 1 ML SYRINGE SUBCUT SCH ×3 (05:27→21:51)
[2017-05-05] MEDS: FUROSEMIDE INJ/PF 40 MG/4 ML SDV IV SCH ×2 (10:00→18:01)
[2017-05-05] MEDS: GUAIFENESIN 600 MG TABLET.SA PO SCH ×2 (10:01→21:50)
[2017-05-05] MEDS: DOXYCYCLINE HYCLATE 100 MG in DEXTROSE 5%-WATER 250 ML IV SCH ×2 (10:02→21:50)
--- NOTE | 2017-05-05 16:51 | PDOC PROGRESS REPORT ---
Subjective Progress Note for:: 05/05/17 Subjective:: Patient seems to be doing better with gradual improvement. Patient still has intermittent episodes of shortness of breath. Pt is denying any chest arm or neck discomfort. Patient denying any PND, orthopnea. Patient denied any sustained palpitations, dizziness, syncope, near syncope. Patient denying any fever chills. Patient denying any other significant discomfort. Patient is maintaining sinus rhythm. Frequent APCs noted. Review of systems: Rest review of systems negative. Medications: Medications have been reviewed. Reason For Visit: CAP Physical Exam Vital Signs: Temp Pulse Resp BP Pulse Ox 97.7 F 42 L 18 120/45 L 95 05/05/17 11:46 05/05/17 14:00 05/05/17 11:46 05/05/17 11:46 05/05/17 11:46 Intake & Output 05/04/17 05/05/17 05/06/17 06:59 06:59 06:59 Intake Total 1424 1285 Output Total 700 1450 Balance 724 -165 Weight 76.6 kg 79.9 kg Exam: GENERAL: well-nourished and in no acute distress. Alert and oriented x3 HEAD: Atraumatic, normocephalic. EYES: Pupils equal round and reactive to light, extraocular movements intact, sclera anicteric, conjunctiva are normal. ENT: TMs normal, nares patent, oropharynx clear without exudates. Moist mucous membranes. No oral ulcerations or bleeding gums noted NECK: supple without lymphadenopathy. Trachea is central. No cervical or axillary lymphadenopathy noted. Carotids are 2+, JVD WNL LUNGS: Respiration seems nonlabored, no significant accessory muscle action noted. Bibasilar fine crackles and mild bilateral wheezes rales or rhonchi noted. No significant dullness noted on percussion. CHEST: Palpation of the chest wall shows no significant chest wall tenderness. No other significant abnormalities noted. 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 ABDOMEN: Soft, no significant tenderness appreciated, normoactive bowel sounds. No guarding, no rebound. No rigidity noted . No masses appreciated. EXTREMITIES: Pedal pulses are 1-2+, no calf tenderness noted. No clubbing or cyanosis.trace to 1+ pedal edema noted NEUROLOGICAL: Focused neurological exam showed no significant neurologic deficit. Normal speech, no focal weakness appreciated. PSYCH: Normal mood, normal affect. Judgment and insight within normal limits. SKIN: Mild chronic dermatitis changes noted in both lower legs.. MUSCULOSKELETAL EXAM: No significant joint swelling noted. Results Laboratory Results: 05/04/17 05:55 05/04/17 05:55 Impressions: Chest X-Ray 05/02/17 09:56 IMPRESSION: PROBABLE CHRONIC SCARRING. SUSPECT PNEUMONIA IN THE RIGHT LUNG. POSSIBLE SMALL PLEURAL EFFUSIONS. Assessment & Plan - Diagnosis (1) Aortic stenosis Qualifiers: Cardiac valve disease etiology: etiology unspecified Qualified Code(s): I35.0 - Nonrheumatic aortic (valve) stenosis Is this a current diagnosis for this admission?: Yes (2) ARF (acute renal failure) Qualifiers: Acute renal failure type: unspecified Qualified Code(s): N17.9 - Acute kidney failure, unspecified Is this a current diagnosis for this admission?: Yes (3) Acute respiratory failure with hypoxia Is this a current diagnosis for this admission?: Yes (4) CHF (congestive heart failure) Qualifiers: Congestive heart failure type: unspecified congestive heart failure type Congestive heart failure chronicity: acute on chronic Qualified Code(s): I50.9 - Heart failure, unspecified Is this a current diagnosis for this admission?: Yes (5) Right lower lobe pneumonia Qualifiers: Pneumonia type: due to unspecified organism Qualified Code(s): J18.1 - Lobar pneumonia, unspecified organism Is this a current diagnosis for this admission?: Yes - Notes Notes: No significant change except that he is showing slow gradual improvement. Aortic stenosis: Patient noted to have severe to critical aortic stenosis. However he is still not interested in pursuing any therapeutic option. Patient understands that surgical or interventional option is the only option for aortic valve stenosis. At this point will recommend IV diuretics. Patient does not want resuscitation. Hopefully patient's primary care general farm hand would be able to discuss this further as an outpatient. Congestive heart failure: Most likely related to diastolic dysfunction and aortic stenosis. Recommend IV diuretic therapy., Currently on diuretic therapy which he need to be continued. Right lower lobe pneumonia: Continue with antibiotic therapy. Acute hypoxic respiratory failure: Continue with oxygen supplementation, bronchodilator therapy and antibiotic therapy. Most likely related to COPD with underlying pneumonia. Acute renal failure: [place] to be related to metabolic reasons. Likely to improve with improvement in general condition. Overall prognosis is grave due to progressive aortic stenosis and patient's refusal to consider any operative intervention. - Time Time with patient: 15-25 minutes - CODE STATUS : was discussed, patient remains DO NOT RESUSCITATE. Surrogate decision-maker unchanged. Multiple medical problems were addressed. More than 50% of the time spent coordinating care, discussing management plans with involved caregivers. Management plans discussed with involved personnels. Medical decision making was of moderate to high complexity, patient's has multiple comorbidities. Medications reviewed and adjusted accordingly: Yes
[2017-05-05 17:16] LABS: HEMATOCRIT 45.5 % (37.9-51.0); HEMOGLOBIN 15.4 g/dL (13.5-17.0); MEAN CORPUSCULAR HEMOGLOBIN 31.5 pg (27.0-33.4); MEAN CORPUSCULAR HGB CONC 33.9 g/dL (32.0-36.0); MEAN CORPUSCULAR VOLUME 93 fl (80-97); PLATELET COUNT 273 10^3/uL (150-450); RED BLOOD COUNT 4.89 10^6/uL (4.35-5.55); RED CELL DISTRIBUTION WIDTH 14.7 % (11.5-14.0); WHITE BLOOD COUNT 10.2 10^3/uL (4.0-10.5)
[2017-05-05 17:36] LABS: ANION GAP 11 (5-19); BLOOD UREA NITROGEN 31 mg/dL (7-20); CARBON DIOXIDE 27 mmol/L (22-30); CHLORIDE 101 mmol/L (98-107); GLUCOSE 136 mg/dL (75-110); POTASSIUM 3.6 mmol/L (3.6-5.0); SODIUM 138.8 mmol/L (137-145)
--- NOTE | 2017-05-05 17:53 | RADIOLOGY REPORT (SQ) ---
EXAM DESCRIPTION: CHEST SINGLE VIEW COMPLETED DATE/TIME: 05/05/2017 5:37 pm REASON FOR STUDY: r/o chf COMPARISON: 05/02/2017 EXAM PARAMETERS: NUMBER OF VIEWS: One view. TECHNIQUE: Single frontal radiographic view of the chest acquired. RADIATION DOSE: NA LIMITATIONS: None. FINDINGS: LUNGS AND PLEURA: Essentially stable pulmonary exam again demonstrating bibasilar and righ t mid lung pulmonary opacities with small pleural effusions. No new focal consolidations. No pneumo thorax. MEDIASTINUM AND HILAR STRUCTURES: No masses. Contour normal. HEART AND VASCULAR STRUCTURES: Heart normal in size. Normal vasculature. BONES: No acute findings. HARDWARE: None in the chest. OTHER: No other significant finding. IMPRESSION: Stable radiographic appearance of the chest, again demonstrating bibasilar and right mid lung opacities with small bilateral pleural effusions. TECHNICAL DOCUMENTATION: JOB ID: [id number] [employer]- All Rights Reserved
[2017-05-05] MEDS: TAMSULOSIN HCL 0.4 MG CAP.SR.24H PO SCH (18:02)
[2017-05-06] MEDS ORDERED: FUROSEMIDE INJ/PF 40 MG/4 ML SDV IV ONE (07:12)
[2017-05-06 07:37] LABS: ANION GAP 9 (5-19); BLOOD UREA NITROGEN 27 mg/dL (7-20); CALCIUM 8.7 mg/dL (8.4-10.2); CARBON DIOXIDE 28 mmol/L (22-30); CHLORIDE 104 mmol/L (98-107); GLUCOSE 83 mg/dL (75-110); POTASSIUM 3.5 mmol/L (3.6-5.0); SODIUM 141.3 mmol/L (137-145)
[2017-05-06] MEDS: HEPARIN SOD (PORCINE) 5,000 UNIT/ML 1 ML SYRINGE SUBCUT SCH ×3 (08:20→22:47)
[2017-05-06] MEDS ORDERED: POTASSIUM CHLORIDE 20 MEQ/15 ML UDCUP PO SCH (10:00)
[2017-05-06] MEDS: GUAIFENESIN 600 MG TABLET.SA PO SCH ×2 (10:17→22:46)
[2017-05-06] MEDS: FUROSEMIDE INJ/PF 40 MG/4 ML SDV IV SCH ×2 (10:21→17:38)
[2017-05-06] MEDS: DOXYCYCLINE HYCLATE 100 MG in DEXTROSE 5%-WATER 250 ML IV SCH ×2 (10:22→22:47)
[2017-05-06] MEDS ORDERED: POTASSIUM CHLORIDE 20 MEQ/15 ML UDCUP PO ONE (10:30)
[2017-05-06] MEDS: POTASSIUM CHLORIDE 20 MEQ/15 ML UDCUP PO SCH (14:01)
--- NOTE | 2017-05-06 14:36 | PDOC PROGRESS REPORT ---
Subjective Progress Note for:: 05/06/17 Subjective:: Patient seems to be doing better with gradual improvement. Patient still has intermittent episodes of shortness of breath. Pt is denying any chest arm or neck discomfort. Patient denying any PND, orthopnea. Patient denied any sustained palpitations, dizziness, syncope, near syncope. Patient denying any fever chills. Patient denying any other significant discomfort. Patient is maintaining sinus rhythm. Review of systems: Rest review of systems negative. Medications: Medications have been reviewed. Reason For Visit: CAP Physical Exam Vital Signs: Temp Pulse Resp BP Pulse Ox 98.0 F 42 L 24 H 125/40 L 100 05/06/17 12:00 05/06/17 12:00 05/06/17 12:00 05/06/17 12:00 05/06/17 12:00 Intake & Output 05/05/17 05/06/17 05/07/17 06:59 06:59 06:59 Intake Total 1285 1435 355 Output Total 1450 1975 Balance -165 -540 355 Weight 79.9 kg 79.5 kg Exam: GENERAL: well-nourished and in no acute distress. Alert and oriented x3 HEAD: Atraumatic, normocephalic. EYES: Pupils equal round and reactive to light, extraocular movements intact, sclera anicteric, conjunctiva are normal. ENT: TMs normal, nares patent, oropharynx clear without exudates. Moist mucous membranes. No oral ulcerations or bleeding gums noted NECK: supple without lymphadenopathy. Trachea is central. No cervical or axillary lymphadenopathy noted. Carotids are 2+, JVD WNL LUNGS: Respiration seems nonlabored, no significant accessory muscle action noted. Few bibasilar crackles noted. No wheezes rales or rhonchi noted. No significant dullness noted on percussion. CHEST: Palpation of the chest wall shows no significant chest wall tenderness. No other significant abnormalities noted. HEART: [place] [employer], No PSH, 2-3/6 ANY aortic area, 1/6 lam systolic murmur mitral area, no rubs, no gallops. ABDOMEN: Soft, no significant tenderness appreciated, normoactive bowel sounds. No guarding, no rebound. No rigidity noted . No masses appreciated. EXTREMITIES: Pedal pulses are 1-2+, no calf tenderness noted. No clubbing or cyanosis.trace pedal edema noted NEUROLOGICAL: Focused neurological exam showed no significant neurologic deficit. Normal speech, no focal weakness appreciated. PSYCH: Normal mood, normal affect. Judgment and insight within normal limits. SKIN: No significant ecchymosis, rash, ulcerations or signs of pruritus noted. MUSCULOSKELETAL EXAM: No significant joint swelling noted. Results Laboratory Results: 05/05/17 16:55 05/06/17 06:02 05/05/17 05/05/17 05/06/17 16:55 16:55 06:02 WBC 10.2 RBC 4.89 Hgb 15.4 Hct 45.5 MCV 93 MCH 31.5 MCHC 33.9 RDW 14.7 H Plt Count 273 Sodium 138.8 141.3 Potassium 3.6 3.5 L Chloride 101 104 Carbon Dioxide 27 28 Anion Gap 11 9 BUN 31 H 27 H Creatinine 1.13 1.12 Est GFR ( Amer) > 60 > 60 Est GFR (Non-Af Amer) > 60 > 60 Glucose 136 H 83 Calcium 9.0 8.7 05/05/17 16:55 NT-Pro-B Natriuret Pep 9140 H EKG Comments: Sinus rhythm without any sustained tachycardia or bradycardia arrhythmias noted. Impressions: Chest X-Ray 05/05/17 00:00 IMPRESSION: Stable radiographic appearance of the chest, again demonstrating bibasilar and right mid lung opacities with small bilateral pleural effusions. Assessment & Plan - Diagnosis (1) Aortic stenosis Qualifiers: Cardiac valve disease etiology: etiology unspecified Qualified Code(s): I35.0 - Nonrheumatic aortic (valve) stenosis Is this a current diagnosis for this admission?: Yes (2) ARF (acute renal failure) Qualifiers: Acute renal failure type: unspecified Qualified Code(s): N17.9 - Acute kidney failure, unspecified Is this a current diagnosis for this admission?: Yes (3) Acute respiratory failure with hypoxia Is this a current diagnosis for this admission?: Yes (4) CHF (congestive heart failure) Qualifiers: Congestive heart failure type: unspecified congestive heart failure type Congestive heart failure chronicity: acute on chronic Qualified Code(s): I50.9 - Heart failure, unspecified Is this a current diagnosis for this admission?: Yes (5) Right lower lobe pneumonia Qualifiers: Pneumonia type: due to unspecified organism Qualified Code(s): J18.1 - Lobar pneumonia, unspecified organism Is this a current diagnosis for this admission?: Yes - Notes Notes: Patient seems to be gradually but slowly improving. He continues to decline any surgical or interventional options for his aortic stenosis. Pneumonia seems improving. CHF seems compensated clinically. Recommend oxygen supplementation and continuation of current regimen. Telemetry strips reviewed showed no significant arrhythmias. Patient generally stable. Will continue to follow. - Time Time with patient: 15-25 minutes - CODE STATUS : was discussed, patient remains DO NOT RESUSCITATE. Surrogate decision-maker unchanged. Multiple medical problems were addressed. More than 50% of the time spent coordinating care, discussing management plans with involved caregivers. Management plans discussed with involved personnels. Medical decision making was of moderate to high complexity, patient's has multiple comorbidities. Medications reviewed and adjusted accordingly: Yes
--- NOTE | 2017-05-06 15:26 | PDOC PROGRESS REPORT ---
Subjective Progress Note for:: 05/04/17 Subjective:: Patient seen sitting in the chair states he is about ready to go home. Plan to go home in the morning Reason For Visit: CAP Physical Exam Vital Signs: Temp Pulse Resp BP Pulse Ox 98.0 F 42 L 24 H 125/40 L 100 05/06/17 12:00 05/06/17 12:00 05/06/17 12:00 05/06/17 12:00 05/06/17 12:00 Intake & Output 05/05/17 05/06/17 05/07/17 06:59 06:59 06:59 Intake Total 1285 1435 355 Output Total 1450 1975 Balance -165 -540 355 Weight 79.9 kg 79.5 kg General appearance: PRESENT: no acute distress, well-developed, well-nourished Head exam: PRESENT: atraumatic, normocephalic Eye exam: PRESENT: conjunctiva pink, EOMI, PERRLA. ABSENT: scleral icterus Ear exam: PRESENT: normal external ear exam Mouth exam: PRESENT: moist, tongue midline Neck exam: ABSENT: carotid bruit, JVD, lymphadenopathy, thyromegaly Respiratory exam: PRESENT: crackles - Right lower lobe, unlabored. ABSENT: rales, rhonchi, wheezes Cardiovascular exam: PRESENT: RRR. ABSENT: diastolic murmur, rubs, systolic murmur Pulses: PRESENT: normal dorsalis pedis pul Vascular exam: PRESENT: normal capillary refill GI/Abdominal exam: PRESENT: normal bowel sounds, soft. ABSENT: distended, guarding, mass, organolmegaly, rebound, tenderness Rectal exam: PRESENT: deferred Extremities exam: PRESENT: full ROM, +1 edema. ABSENT: calf tenderness, clubbing, pedal edema Neurological exam: PRESENT: alert, awake, oriented to person, oriented to place , oriented to time, oriented to situation, CN II-XII grossly intact. ABSENT: motor sensory deficit Psychiatric exam: PRESENT: appropriate affect, normal mood. ABSENT: homicidal ideation, suicidal ideation Skin exam: PRESENT: dry, intact, warm. ABSENT: cyanosis, rash Results Laboratory Results: 05/05/17 16:55 05/06/17 06:02 05/05/17 05/05/17 05/06/17 16:55 16:55 06:02 WBC 10.2 RBC 4.89 Hgb 15.4 Hct 45.5 MCV 93 MCH 31.5 MCHC 33.9 RDW 14.7 H Plt Count 273 Sodium 138.8 141.3 Potassium 3.6 3.5 L Chloride 101 104 Carbon Dioxide 27 28 Anion Gap 11 9 BUN 31 H 27 H Creatinine 1.13 1.12 Est GFR ( Amer) > 60 > 60 Est GFR (Non-Af Amer) > 60 > 60 Glucose 136 H 83 Calcium 9.0 8.7 05/05/17 16:55 NT-Pro-B Natriuret Pep 9140 H Impressions: Chest X-Ray 05/05/17 00:00 IMPRESSION: Stable radiographic appearance of the chest, again demonstrating bibasilar and right mid lung opacities with small bilateral pleural effusions. Assessment & Plan - Diagnosis (1) ARF (acute renal failure) Qualifiers: Acute renal failure type: unspecified Qualified Code(s): N17.9 - Acute kidney failure, unspecified Is this a current diagnosis for this admission?: Yes Plan: . Continue to monitor BUN/creatinine gentle diuresing (2) Acute respiratory failure with hypoxia Is this a current diagnosis for this admission?: Yes Plan: Continue O2 at 2 L nasal cannula attempt to wean her patient was not on home O2 patient continues to have a little bit of a cough clear phlegm (3) CHF (congestive heart failure) Qualifiers: Congestive heart failure type: unspecified congestive heart failure type Congestive heart failure chronicity: acute on chronic Qualified Code(s): I50.9 - Heart failure, unspecified Is this a current diagnosis for this admission?: Yes Plan: Patient is currently getting Lasix 40 mg twice daily tolerating well (4) Right lower lobe pneumonia Qualifiers: Pneumonia type: due to unspecified organism Qualified Code(s): J18.1 - Lobar pneumonia, unspecified organism Is this a current diagnosis for this admission?: Yes Plan: Continue IV antibiotics, nebulizers, and stable - Plan Summary Plan Summary: Anticipate discharge home in the morning if stable
--- NOTE | 2017-05-06 15:32 | PDOC PROGRESS REPORT ---
Subjective Progress Note for:: 05/05/17 Subjective:: Patient seen in bed very dyspneic, coughing, cannot catch his breath currently on 4 L nasal cannula. Will asked respiratory therapy give him a breathing treatment. Will hold discharge for now reevaluate again later today Reason For Visit: CAP Physical Exam Vital Signs: Temp Pulse Resp BP Pulse Ox 98.0 F 42 L 24 H 125/40 L 100 05/06/17 12:00 05/06/17 12:00 05/06/17 12:00 05/06/17 12:00 05/06/17 12:00 Intake & Output 05/05/17 05/06/17 05/07/17 06:59 06:59 06:59 Intake Total 1285 1435 355 Output Total 1450 1975 Balance -165 -540 355 Weight 79.9 kg 79.5 kg General appearance: PRESENT: mild distress, well-developed, well-nourished Head exam: PRESENT: atraumatic, normocephalic Eye exam: PRESENT: conjunctiva pink, EOMI, PERRLA. ABSENT: scleral icterus Ear exam: PRESENT: normal external ear exam Mouth exam: PRESENT: moist, tongue midline Neck exam: ABSENT: carotid bruit, JVD, lymphadenopathy, thyromegaly Respiratory exam: PRESENT: accessory muscle use, chest wall tenderness, crackles , rales, rhonchi, tachypnea, wheezes. ABSENT: unlabored Cardiovascular exam: PRESENT: RRR. ABSENT: diastolic murmur, rubs, systolic murmur Pulses: PRESENT: normal dorsalis pedis pul Vascular exam: PRESENT: normal capillary refill GI/Abdominal exam: PRESENT: normal bowel sounds, soft. ABSENT: distended, guarding, mass, organolmegaly, rebound, tenderness Rectal exam: PRESENT: deferred Extremities exam: PRESENT: full ROM, pedal edema, +2 edema. ABSENT: calf tenderness, clubbing Musculoskeletal exam: PRESENT: ambulatory Neurological exam: PRESENT: alert, awake, oriented to person, oriented to place , oriented to time, oriented to situation, CN II-XII grossly intact. ABSENT: motor sensory deficit Psychiatric exam: PRESENT: appropriate affect, normal mood. ABSENT: homicidal ideation, suicidal ideation Skin exam: PRESENT: dry, intact, warm. ABSENT: cyanosis, rash Results Laboratory Results: 05/05/17 16:55 05/06/17 06:02 05/05/17 05/05/17 05/06/17 16:55 16:55 06:02 WBC 10.2 RBC 4.89 Hgb 15.4 Hct 45.5 MCV 93 MCH 31.5 MCHC 33.9 RDW 14.7 H Plt Count 273 Sodium 138.8 141.3 Potassium 3.6 3.5 L Chloride 101 104 Carbon Dioxide 27 28 Anion Gap 11 9 BUN 31 H 27 H Creatinine 1.13 1.12 Est GFR ( Amer) > 60 > 60 Est GFR (Non-Af Amer) > 60 > 60 Glucose 136 H 83 Calcium 9.0 8.7 05/05/17 16:55 NT-Pro-B Natriuret Pep 9140 H Impressions: Chest X-Ray 05/05/17 00:00 IMPRESSION: Stable radiographic appearance of the chest, again demonstrating bibasilar and right mid lung opacities with small bilateral pleural effusions. Assessment & Plan - Diagnosis (1) ARF (acute renal failure) Qualifiers: Acute renal failure type: unspecified Qualified Code(s): N17.9 - Acute kidney failure, unspecified Is this a current diagnosis for this admission?: Yes Plan: . Continue to monitor BUN/creatinine gentle diuresing acute on chronic renal insufficiency with failure secondary to chronic use of diuretics (2) Acute respiratory failure with hypoxia Is this a current diagnosis for this admission?: Yes Plan: Continue O2 at 4 L nasal cannula attempt to wean her patient was not on home O2 patient continues to have a little bit of a cough clear phlegm, seems to have increased congestion requiring BiPAP as needed (3) CHF (congestive heart failure) Qualifiers: Congestive heart failure type: unspecified congestive heart failure type Congestive heart failure chronicity: acute on chronic Qualified Code(s): I50.9 - Heart failure, unspecified Is this a current diagnosis for this admission?: Yes Plan: Patient is currently getting Lasix 40 mg twice daily tolerating well. Patient' s Iverson was removed and he is urinating well. Suspect patient has worsening CHF. Repeat chest x-ray and BNP and repeat BMP. Hold discharge for now (4) Right lower lobe pneumonia Qualifiers: Pneumonia type: due to unspecified organism Qualified Code(s): J18.1 - Lobar pneumonia, unspecified organism Is this a current diagnosis for this admission?: Yes Plan: Continue IV antibiotics, nebulizers, and stable, however suspect fluid overload worsening patient's afebrile - Plan Summary Plan Summary: Plan to get a chest x-ray rule out worsening effusions increase fluid overload. Check BNP and BM P today and again in a.m. will have tenderness to follow-up night. Will reevaluate discharge home again tomorrow if not Sunday
--- NOTE | 2017-05-06 15:37 | PDOC PROGRESS REPORT ---
Subjective Progress Note for:: 05/06/17 Subjective:: Patient seen in bed very dyspneic, coughing, cannot catch his breath currently on 4 L nasal cannula. Will asked respiratory therapy give him a breathing treatment. Will hold discharge for now reevaluate again later today Reason For Visit: CAP Patient with known fluid overload and pneumonia in the setting of some acute chronic renal failure. Patient requiring O2 and BiPAP. Having to get extra Lasix. And replace potassium Physical Exam Vital Signs: Temp Pulse Resp BP Pulse Ox 97.5 F 40 L 20 136/40 H 100 05/06/17 07:12 05/06/17 07:12 05/06/17 07:12 05/06/17 07:12 05/06/17 07:12 Intake & Output 05/05/17 05/06/17 05/07/17 06:59 06:59 06:59 Intake Total 1285 1435 Output Total 1450 1975 Balance -165 -540 Weight 79.9 kg 79.5 kg General appearance: PRESENT: no acute distress, well-developed, well-nourished Head exam: PRESENT: atraumatic, normocephalic Eye exam: PRESENT: conjunctiva pink, EOMI, PERRLA. ABSENT: scleral icterus Ear exam: PRESENT: normal external ear exam Mouth exam: PRESENT: moist, tongue midline Neck exam: ABSENT: carotid bruit, JVD, lymphadenopathy, thyromegaly Respiratory exam: PRESENT: crackles, decreased breath sounds - Right lower lobe decreased breath sounds, rales, tachypnea, unlabored, wheezes. ABSENT: rhonchi Cardiovascular exam: PRESENT: RRR. ABSENT: diastolic murmur, rubs, systolic murmur Pulses: PRESENT: normal dorsalis pedis pul Vascular exam: PRESENT: normal capillary refill GI/Abdominal exam: PRESENT: normal bowel sounds, soft. ABSENT: distended, guarding, mass, organolmegaly, rebound, tenderness Rectal exam: PRESENT: deferred Extremities exam: PRESENT: full ROM, +2 edema. ABSENT: calf tenderness, clubbing, pedal edema Neurological exam: PRESENT: alert, awake, oriented to person, oriented to place , oriented to time, oriented to situation, CN II-XII grossly intact. ABSENT: motor sensory deficit Psychiatric exam: PRESENT: appropriate affect, normal mood. ABSENT: homicidal ideation, suicidal ideation Skin exam: PRESENT: dry, intact, warm. ABSENT: cyanosis, rash Results Laboratory Results: 05/05/17 16:55 05/06/17 06:02 05/05/17 05/05/17 05/06/17 16:55 16:55 06:02 WBC 10.2 RBC 4.89 Hgb 15.4 Hct 45.5 MCV 93 MCH 31.5 MCHC 33.9 RDW 14.7 H Plt Count 273 Sodium 138.8 141.3 Potassium 3.6 3.5 L Chloride 101 104 Carbon Dioxide 27 28 Anion Gap 11 9 BUN 31 H 27 H Creatinine 1.13 1.12 Est GFR ( Amer) > 60 > 60 Est GFR (Non-Af Amer) > 60 > 60 Glucose 136 H 83 Calcium 9.0 8.7 05/05/17 16:55 NT-Pro-B Natriuret Pep 9140 H Impressions: Chest X-Ray 05/05/17 00:00 IMPRESSION: Stable radiographic appearance of the chest, again demonstrating bibasilar and right mid lung opacities with small bilateral pleural effusions. Assessment & Plan - Diagnosis (1) Hypokalemia Is this a current diagnosis for this admission?: Yes Plan: Potassium 2.7. Will give IV riders and some oral potassium today. Patient is requiring extra IV Lasix (2) Acute respiratory failure with hypoxia Is this a current diagnosis for this admission?: Yes Plan: Continue O2 at 4 L nasal cannula attempt to wean her patient was not on home O2 patient continues to have a little bit of a cough clear phlegm, seems to have increased congestion requiring BiPAP as needed (3) CHF (congestive heart failure) Qualifiers: Congestive heart failure type: combined Congestive heart failure chronicity : acute on chronic Qualified Code(s): I50.43 - Acute on chronic combined systolic (congestive) and diastolic (congestive) heart failure Is this a current diagnosis for this admission?: Yes Plan: Patient is currently getting Lasix 40 mg twice daily tolerating well. Patient' s Iverson was removed and he is urinating well. Suspect patient has worsening CHF. Repeat chest x-ray and BNP 3500 and repeat BMP stable but has some hypokalemia. Hold discharge for now, aggressive IV diuresing currently was getting 40 mg twice a day will give 80 mg this morning and 40 this evening. Replace potassium recheck again at 4 PM. O2 on 2 L at 87% when ambulating need to be on home O2 (4) Right lower lobe pneumonia Qualifiers: Pneumonia type: due to unspecified organism Qualified Code(s): J18.1 - Lobar pneumonia, unspecified organism Is this a current diagnosis for this admission?: Yes Plan: Continue IV antibiotics, nebulizers, and stable, however suspect fluid overload worsening patient's afebrile - Plan Summary Plan Summary: Aggressive IV diuresing, potassium replacement, monitor labs in a.m. Consider repeat chest CT in a.m. to evaluate pleural effusions
[2017-05-06] MEDS: TAMSULOSIN HCL 0.4 MG CAP.SR.24H PO SCH (17:37)
[2017-05-07] MEDS: POTASSIUM CHLORIDE 20 MEQ/15 ML UDCUP PO SCH (02:36)
[2017-05-07] MEDS: HEPARIN SOD (PORCINE) 5,000 UNIT/ML 1 ML SYRINGE SUBCUT SCH ×3 (06:54→22:00)
[2017-05-07 08:49] LABS: ABSOLUTE BASOPHILS # (AUTO) 0.1 10^3/uL (0.0-0.2); ABSOLUTE EOSINOPHILS # (AUTO) 0.3 10^3/uL (0.0-0.6); ABSOLUTE LYMPHOCYTES (AUTO) 1.3 10^3/uL (0.5-4.7); ABSOLUTE MONOCYTES (AUTO) 1.2 10^3/uL (0.1-1.4); ABSOLUTE NEUT (AUTO) 6.4 10^3/uL (1.7-8.2); EOSINOPHILS % (AUTO) 3.5 % (0-6); HEMATOCRIT 42.5 % (37.9-51.0); HEMOGLOBIN 14.2 g/dL (13.5-17.0); LYMPHOCYTES % (AUTO) 13.7 % (13-45); MEAN CORPUSCULAR HGB CONC 33.5 g/dL (32.0-36.0); MEAN CORPUSCULAR VOLUME 93 fl (80-97); MONOCYTES % (AUTO) 12.8 % (3-13); PLATELET COUNT 226 10^3/uL (150-450); RED CELL DISTRIBUTION WIDTH 14.3 % (11.5-14.0); TOTAL CELLS COUNTED % (AUTO) 100 %; WHITE BLOOD COUNT 9.3 10^3/uL (4.0-10.5)
[2017-05-07 09:05] LABS: ALANINE AMINOTRANSFERASE 39 U/L (21-72); ALBUMIN 2.8 g/dL (3.5-5.0); ALKALINE PHOSPHATASE 66 U/L (38-126); ANION GAP 7 (5-19); ASPARTATE AMINO TRANSFERASE 19 U/L (17-59); BILIRUBIN,DIRECT 0.4 mg/dL (0.0-0.4); BILIRUBIN,TOTAL 0.7 mg/dL (0.2-1.3); BLOOD UREA NITROGEN 25 mg/dL (7-20); CARBON DIOXIDE 28 mmol/L (22-30); CHLORIDE 104 mmol/L (98-107); GLUCOSE 84 mg/dL (75-110); POTASSIUM 3.9 mmol/L (3.6-5.0); SODIUM 138.6 mmol/L (137-145); TOTAL PROTEIN 4.7 g/dL (6.3-8.2)
[2017-05-07] MEDS: GUAIFENESIN 600 MG TABLET.SA PO SCH ×2 (10:07→21:44)
[2017-05-07] MEDS: FUROSEMIDE INJ/PF 40 MG/4 ML SDV IV SCH (10:07)
[2017-05-07] MEDS: DOXYCYCLINE HYCLATE 100 MG in DEXTROSE 5%-WATER 250 ML IV SCH (10:08)
--- NOTE | 2017-05-07 11:40 | PDOC PROGRESS REPORT ---
Subjective Progress Note for:: 05/07/17 Subjective:: Patient seems to be doing better with very gradual improvement. Pt is denying any chest arm or neck discomfort. Patient denying any PND, orthopnea. Patient denied any sustained palpitations, dizziness, syncope, near syncope. Patient denying any fever chills. Patient denying any other significant discomfort. Patient is maintaining sinus rhythm with 2-1 heart block. Review of systems: Rest review of systems negative. Medications: Medications have been reviewed. Reason For Visit: CAP Physical Exam Vital Signs: Temp Pulse Resp BP Pulse Ox 98.2 F 43 L 16 127/32 H 97 05/07/17 08:18 05/07/17 08:18 05/07/17 08:18 05/07/17 08:18 05/07/17 08:18 Intake & Output 05/06/17 05/07/17 05/08/17 06:59 06:59 06:59 Intake Total 1435 1970 Output Total 1975 1250 Balance -540 720 Weight 79.5 kg 77 kg Exam: GENERAL: well-nourished and in no acute distress. Alert and oriented x3 HEAD: Atraumatic, normocephalic. EYES: Pupils equal round and reactive to light, extraocular movements intact, sclera anicteric, conjunctiva are normal. ENT: TMs normal, nares patent, oropharynx clear without exudates. Moist mucous membranes. No oral ulcerations or bleeding gums noted NECK: supple without lymphadenopathy. Trachea is central. No cervical or axillary lymphadenopathy noted. Carotids are 2+, JVD WNL LUNGS: Respiration seems nonlabored, no significant accessory muscle action noted. Few bibasilar crackles noted. No wheezes rales or rhonchi noted. No significant dullness noted on percussion. CHEST: Palpation of the chest wall shows no significant chest wall tenderness. No other significant abnormalities noted. HEART: [place] [employer], No PSH, 2-3/6 ANY aortic area, 1/6 lam systolic murmur mitral area, no rubs, no gallops. ABDOMEN: Soft, no significant tenderness appreciated, normoactive bowel sounds. No guarding, no rebound. No rigidity noted . No masses appreciated. EXTREMITIES: Pedal pulses are 1-2+, no calf tenderness noted. No clubbing or cyanosis. 1+ pedal edema noted NEUROLOGICAL: Focused neurological exam showed no significant neurologic deficit. Normal speech, no focal weakness appreciated. PSYCH: Normal mood, normal affect. Judgment and insight within normal limits. SKIN: No significant ecchymosis, rash, ulcerations or signs of pruritus noted. MUSCULOSKELETAL EXAM: No significant joint swelling noted. Results Laboratory Results: 05/07/17 08:22 05/07/17 08:22 05/07/17 05/07/17 08:22 08:22 WBC 9.3 RBC 4.60 Hgb 14.2 Hct 42.5 MCV 93 MCH 31.0 MCHC 33.5 RDW 14.3 H Plt Count 226 Seg Neutrophils % 69.0 Lymphocytes % 13.7 Monocytes % 12.8 Eosinophils % 3.5 Basophils % 1.0 Absolute Neutrophils 6.4 Absolute Lymphocytes 1.3 Absolute Monocytes 1.2 Absolute Eosinophils 0.3 Absolute Basophils 0.1 Sodium 138.6 Potassium 3.9 Chloride 104 Carbon Dioxide 28 Anion Gap 7 BUN 25 H Creatinine 1.08 Est GFR ( Amer) > 60 Est GFR (Non-Af Amer) > 60 Glucose 84 Calcium 9.0 Total Bilirubin 0.7 AST 19 ALT 39 Alkaline Phosphatase 66 Total Protein 4.7 L Albumin 2.8 L 05/05/17 05/07/17 16:55 08:22 NT-Pro-B Natriuret Pep 9140 H 5110 H Impressions: Chest X-Ray 05/05/17 00:00 IMPRESSION: Stable radiographic appearance of the chest, again demonstrating bibasilar and right mid lung opacities with small bilateral pleural effusions. Assessment & Plan - Diagnosis (1) Aortic stenosis Qualifiers: Cardiac valve disease etiology: etiology unspecified Qualified Code(s): I35.0 - Nonrheumatic aortic (valve) stenosis Is this a current diagnosis for this admission?: Yes (2) ARF (acute renal failure) Qualifiers: Acute renal failure type: unspecified Qualified Code(s): N17.9 - Acute kidney failure, unspecified Is this a current diagnosis for this admission?: Yes (3) Acute respiratory failure with hypoxia Is this a current diagnosis for this admission?: Yes (4) CHF (congestive heart failure) Qualifiers: Congestive heart failure type: combined Congestive heart failure chronicity : acute on chronic Qualified Code(s): I50.43 - Acute on chronic combined systolic (congestive) and diastolic (congestive) heart failure Is this a current diagnosis for this admission?: Yes (5) Right lower lobe pneumonia Qualifiers: Pneumonia type: due to unspecified organism Qualified Code(s): J18.1 - Lobar pneumonia, unspecified organism Is this a current diagnosis for this admission?: Yes (6) AV block, 2nd degree Is this a current diagnosis for this admission?: Yes - Notes Notes: Aortic stenosis: Patient noted to have severe to critical aortic stenosis. Patient claims that he knew about this condition from before and has declined to pursue any therapeutic intervention. Discussed now that he also has AV block there is increased risk of sudden cardiac . Patient still does not want any resuscitative procedure or any cardiac intervention such as pacemaker placement and aortic valve interventions. Congestive heart failure: Most likely related to diastolic dysfunction and aortic stenosis. Continue diuretic therapy. Right lower lobe pneumonia: Continue with antibiotic therapy. Acute hypoxic respiratory failure: Continue with oxygen supplementation, bronchodilator therapy and antibiotic therapy. Most likely related to COPD with underlying pneumonia. Acute renal failure: [place] to be related to metabolic reasons. This seems to have stabilized to improved. 2-1 AV block: Discussed progression to complete heart block and increased risk of sudden cardiac . Patient does understand this and does not want any operative intervention at this point. Overall prognosis is grave due to progressive aortic stenosis and now AV block. - Time Time with patient: Greater than 35 minutes - CODE STATUS : was discussed, patient remains DO NOT RESUSCITATE. Surrogate decision-maker unchanged. Multiple medical problems were addressed. More than 50% of the time spent coordinating care, discussing management plans with involved caregivers. Management plans discussed with involved personnels. Medical decision making was of moderate to high complexity, patient's has multiple comorbidities. Dr. Tomlin similar to cover from tomorrow. Medications reviewed and adjusted accordingly: Yes
--- NOTE | 2017-05-07 15:07 | PDOC PROGRESS REPORT ---
Subjective Progress Note for:: 05/07/17 Subjective:: Patient seen in bed very dyspneic, coughing, cannot catch his breath currently on 2L nasal cannula. Will asked respiratory therapy give him a breathing treatment. Will hold discharge for now reevaluate again later. Will need to get his bnp down still real high. Plan on adding Spironolactone bid. Reason For Visit: CAP Physical Exam Vital Signs: Temp Pulse Resp BP Pulse Ox 98.2 F 50 L 14 127/32 H 97 05/07/17 08:18 05/07/17 11:33 05/07/17 11:33 05/07/17 08:18 05/07/17 11:37 Intake & Output 05/06/17 05/07/17 05/08/17 06:59 06:59 06:59 Intake Total 1435 1970 Output Total 1975 1250 Balance -540 720 Weight 79.5 kg 77 kg General appearance: PRESENT: no acute distress, well-developed, well-nourished Head exam: PRESENT: atraumatic, normocephalic Eye exam: PRESENT: conjunctiva pink, EOMI, PERRLA. ABSENT: scleral icterus Ear exam: PRESENT: normal external ear exam Mouth exam: PRESENT: moist, tongue midline Neck exam: ABSENT: carotid bruit, JVD, lymphadenopathy, thyromegaly Respiratory exam: PRESENT: clear to auscultation danisha. ABSENT: rales, rhonchi, wheezes Cardiovascular exam: PRESENT: RRR. ABSENT: diastolic murmur, rubs, systolic murmur Pulses: PRESENT: normal dorsalis pedis pul Vascular exam: PRESENT: normal capillary refill GI/Abdominal exam: PRESENT: normal bowel sounds, soft. ABSENT: distended, guarding, mass, organolmegaly, rebound, tenderness Rectal exam: PRESENT: deferred Extremities exam: PRESENT: full ROM. ABSENT: calf tenderness, clubbing, pedal edema Neurological exam: PRESENT: alert, awake, oriented to person, oriented to place , oriented to time, oriented to situation, CN II-XII grossly intact. ABSENT: motor sensory deficit Psychiatric exam: PRESENT: appropriate affect, normal mood. ABSENT: homicidal ideation, suicidal ideation Skin exam: PRESENT: dry, intact, warm. ABSENT: cyanosis, rash Results Laboratory Results: 05/07/17 08:22 05/07/17 08:22 05/07/17 05/07/17 08:22 08:22 WBC 9.3 RBC 4.60 Hgb 14.2 Hct 42.5 MCV 93 MCH 31.0 MCHC 33.5 RDW 14.3 H Plt Count 226 Seg Neutrophils % 69.0 Lymphocytes % 13.7 Monocytes % 12.8 Eosinophils % 3.5 Basophils % 1.0 Absolute Neutrophils 6.4 Absolute Lymphocytes 1.3 Absolute Monocytes 1.2 Absolute Eosinophils 0.3 Absolute Basophils 0.1 Sodium 138.6 Potassium 3.9 Chloride 104 Carbon Dioxide 28 Anion Gap 7 BUN 25 H Creatinine 1.08 Est GFR ( Amer) > 60 Est GFR (Non-Af Amer) > 60 Glucose 84 Calcium 9.0 Total Bilirubin 0.7 AST 19 ALT 39 Alkaline Phosphatase 66 Total Protein 4.7 L Albumin 2.8 L 05/02/17 14:09 Blood Blood Culture - Final NO GROWTH IN 5 DAYS 05/05/17 05/07/17 16:55 08:22 NT-Pro-B Natriuret Pep 9140 H 5110 H Impressions: Chest X-Ray 05/05/17 00:00 IMPRESSION: Stable radiographic appearance of the chest, again demonstrating bibasilar and right mid lung opacities with small bilateral pleural effusions. Assessment & Plan - Diagnosis (1) Hypokalemia Is this a current diagnosis for this admission?: Yes Plan: Potassium 2.7. Will give IV riders and some oral potassium today. Patient is requiring extra IV Lasix (2) Acute respiratory failure with hypoxia Is this a current diagnosis for this admission?: Yes (3) CHF (congestive heart failure) Qualifiers: Congestive heart failure type: combined Congestive heart failure chronicity : acute on chronic Qualified Code(s): I50.43 - Acute on chronic combined systolic (congestive) and diastolic (congestive) heart failure Is this a current diagnosis for this admission?: Yes Plan: Patient is currently getting Lasix 40 mg twice daily tolerating well. Patient' s Iverson was removed and he is urinating well. Suspect patient has worsening CHF. Repeat chest x-ray and BNP 3500 and repeat BMP stable but has some hypokalemia. Hold discharge for now, aggressive IV diuresing currently was getting 40 mg twice a day will give 80 mg this morning and 40 this evening. Replace potassium recheck again at 4 PM. O2 on 2 L at 87% when ambulating need to be on home O2 Improved BNP but still high. Patient sounds looks better. Denies having any "spells" last night or today plan add Spironolactone. (4) Right lower lobe pneumonia Qualifiers: Pneumonia type: due to unspecified organism Qualified Code(s): J18.1 - Lobar pneumonia, unspecified organism Is this a current diagnosis for this admission?: Yes Plan: Continue antibiotics but change to p.o. due to volume overload, nebulizers, and stable, however suspect fluid overload worsening patient's afebrile - Plan Summary Plan Summary: Anticipate discharge home next day or so. Patient was planning to go home but had exacerbation of congestive heart failure with elevated BNP of 9000 and was very short of breath
[2017-05-07] MEDS ORDERED: SPIRONOLACTONE 25 MG TABLET PO ONE (15:15)
[2017-05-07] MEDS: TAMSULOSIN HCL 0.4 MG CAP.SR.24H PO SCH (18:28)
[2017-05-07] MEDS: SPIRONOLACTONE 25 MG TABLET PO SCH (21:45)
[2017-05-07] MEDS: DOXYCYCLINE HYCLATE 100 MG TABLET PO SCH (21:45)
[2017-05-07] MEDS ORDERED: FUROSEMIDE 20 MG TABLET PO SCH (22:00)
[2017-05-08] MEDS: HEPARIN SOD (PORCINE) 5,000 UNIT/ML 1 ML SYRINGE SUBCUT SCH (06:03)
[2017-05-08 06:30] LABS: ALANINE AMINOTRANSFERASE 35 U/L (21-72); ALBUMIN 2.7 g/dL (3.5-5.0); ALKALINE PHOSPHATASE 59 U/L (38-126); ANION GAP 6 (5-19); ASPARTATE AMINO TRANSFERASE 21 U/L (17-59); BILIRUBIN,DIRECT 0.3 mg/dL (0.0-0.4); BILIRUBIN,TOTAL 0.6 mg/dL (0.2-1.3); BLOOD UREA NITROGEN 26 mg/dL (7-20); CALCIUM 8.9 mg/dL (8.4-10.2); CARBON DIOXIDE 30 mmol/L (22-30); CHLORIDE 102 mmol/L (98-107); GLUCOSE 89 mg/dL (75-110); POTASSIUM 3.9 mmol/L (3.6-5.0); SODIUM 138.4 mmol/L (137-145); TOTAL PROTEIN 4.6 g/dL (6.3-8.2)
[2017-05-08] MEDS: GUAIFENESIN 600 MG TABLET.SA PO SCH (09:12)
[2017-05-08] MEDS: DOXYCYCLINE HYCLATE 100 MG TABLET PO SCH (09:12)
[2017-05-08] MEDS: SPIRONOLACTONE 25 MG TABLET PO SCH (09:12)
--- NOTE | 2017-05-08 09:25 | EKG REPORT ---
SEVERITY:- ABNORMAL ECG - ATRIAL FIBRILLATION RIGHT BUNDLE BRANCH BLOCK : Confirmed by: Rojelio Card 08-May-2017 09:24:47
--- NOTE | 2017-05-08 09:25 | EKG REPORT ---
SEVERITY:- ABNORMAL ECG - SINUS BRADYCARDIA CANNOT R/O AV BLOCK WITH 2:1 CONDUCTION PROBABLE LEFT ATRIAL ABNORMALITY RIGHT BUNDLE BRANCH BLOCK : Confirmed by: Rojelio Card 08-May-2017 09:24:34
[2017-05-08] MEDS ORDERED: FUROSEMIDE 40 MG TABLET PO SCH (10:00)
[2017-05-08 11:29] VITALS: BP 125/40
--- NOTE | 2017-05-08 16:21 | PDOC DISCHARGE SUMMARY ---
General - Admit/Disc Date/PCP Admission Date/Primary Care Provider: 05/02/17 12:40 Discharge Date: 05/08/17 - Discharge Diagnosis (1) ARF (acute renal failure) Is this a current diagnosis for this admission?: Yes (2) AV block, 2nd degree Is this a current diagnosis for this admission?: Yes (3) Acute respiratory failure with hypoxia Is this a current diagnosis for this admission?: Yes (4) Aortic stenosis Is this a current diagnosis for this admission?: Yes (5) CHF (congestive heart failure) Is this a current diagnosis for this admission?: Yes (6) Hypokalemia Is this a current diagnosis for this admission?: Yes (7) Right lower lobe pneumonia Is this a current diagnosis for this admission?: Yes - Additional Information Resuscitation Status: Do Not Resuscitate Discharge Diet: Cardiac Discharge Activity: Activity As Tolerated, Balance Activity w/Rest, Weigh Daily Prescriptions: Doxycycline Hyclate [Vibramycin 100 mg Tablet] 100 mg PO Q12 #30 tablet Spironolactone [Aldactone 25 mg Tablet] 25 mg PO Q12 #60 tablet Tamsulosin HCl [Flomax 0.4 mg Cap.sr] 0.4 mg PO PCSUPPER #30 cap.sr.24h Home Medications: Furosemide [Lasix 40 mg Tablet] 40 mg PO QAM 05/02/17 Levalbuterol HCl [Xopenex Neb 0.63 mg/3 ml Ampul] 0.63 mg NEB [id number] PRN Multivitamin [Tab-A-Jadiel (Multiple Vitamin) Tablet] 1 tab PO DAILY 05/02/17 Timolol [Betimol] 1 drop OU QHS 05/02/17 Acetaminophen [Tylenol 325 mg Tablet] 650 mg PO Q4HP PRN tablet 05/08/17 Doxycycline Hyclate [Vibramycin 100 mg Tablet] 100 mg PO Q12 #30 tablet Guaifenesin [Mucinex Sr 600 mg Tablet.sa] 1,200 mg PO Q12 tablet.sa 05/08/17 Spironolactone [Aldactone 25 mg Tablet] 25 mg PO Q12 #60 tablet 05/08/17 Tamsulosin HCl [Flomax 0.4 mg Cap.sr] 0.4 mg PO PCSUPPER #30 cap.sr.24h History of Present Illness History of Present Illness: Per H&P by Bradley Peterson NP: ZARIA ALMAGUER is a 87 year old male with a past medical history of hypertension and presumed congestive heart failure of uncertain classification. The patient presented to the emergency department with a chief complaint of shortness of breath. According to the patient, he became dyspneic about 2 days ago. The patient uses a helmet inhaler at home and stated that was only mildly helping and he continued to leak. The patient denied any chest pain or fever. The patient's symptoms persisted. He then began producing some yellow sputum. The patient also noted anemia of his lower extremities. The patient's family visited him and were concerned and notified EMS. Upon EMS arrival the patient was found to be in respiratory distress at the patient was unable to tolerate walking even a short distance. The patient was so distressed that he was given 2 of albuterol, 1 of Solu-Medrol, a dose of epinephrine as well as magnesium and was placed on CPAP. The patient did have some mild improvement of symptoms in route; however, upon presentation to the emergency department, the patient did still have significant work of breathing, and was found to be refractive and tachypneic with respirations in the 40s. The patient subsequently was diuresed with Lasix and was placed on BiPAP. The patient additionally had findings on chest x-ray that were concerning for pneumonia as well as a mildly elevated white count at 13.5. Given that and his sputum production, the patient was also covered with Rocephin for pneumonia. Additionally it appears that the patient does have an element of acute kidney injury with a creatinine of 1.51 and a BNP of 9000. Given these findings, the patient has been referred to the hospitalist for admission and management. Hospital Course Hospital Course: The patient was admitted to [facility] on continuous cardiac telemetry for acute respiratory failure with hypoxia secondary to a CHF exacerbation and a community -acquired pneumonia in the setting of severe aortic stenosis. Cardiology was consulted for evaluation and recommendations of his aortic stenosis and second- degree AV block. Cardiology strongly recommended that the patient consider undergoing valve replacement/repair. The patient declined to pursue this option , stating that he was comfortable with allowing his medical conditions to take their natural course without undergoing invasive surgical procedures. She was treated with IV Lasix for diuresis, doxycycline for CAP coverage, BiPAP nightly and as needed with supplemental oxygen to maintain oxygen saturations greater than 92%. His electrolytes were monitored and replaced as needed. At time of discharge, the patient is maintaining his oxygen saturations on room while at rest. He does require supplemental oxygen when ambulating and so will be discharged with home O2. He is capable of ambulating 20-30 feet without difficulty if on oxygen. He is offered home health nursing, health aide, PT/OT which he strongly declines , therefore, he is discharged to home with self-care. He is recommended to follow-up with his primary care provider within 1 week. Physical Exam Vital Signs: Temp Pulse Resp BP Pulse Ox 97.3 F 46 L 20 125/40 L 98 05/08/17 11:28 05/08/17 11:28 05/08/17 11:28 05/08/17 11:28 05/08/17 11:28 Intake & Output 05/07/17 05/08/17 05/09/17 06:59 06:59 06:59 Intake Total 1970 2153 Output Total 1250 375 Balance 720 1778 Weight 77 kg 78 kg General appearance: PRESENT: no acute distress, well-developed, well-nourished, other - overweight Head exam: PRESENT: atraumatic, normocephalic Eye exam: PRESENT: conjunctiva pink, EOMI, PERRLA. ABSENT: scleral icterus Ear exam: PRESENT: normal external ear exam Mouth exam: PRESENT: moist, tongue midline Neck exam: ABSENT: carotid bruit, JVD, lymphadenopathy, thyromegaly Respiratory exam: PRESENT: clear to auscultation danisha, symmetrical, unlabored. ABSENT: rales, rhonchi, wheezes Cardiovascular exam: PRESENT: RRR, +S1, +S2, systolic murmur. ABSENT: diastolic murmur, rubs Pulses: PRESENT: normal dorsalis pedis pul Vascular exam: PRESENT: normal capillary refill GI/Abdominal exam: PRESENT: normal bowel sounds, soft. ABSENT: distended, guarding, mass, organolmegaly, rebound, tenderness Rectal exam: PRESENT: deferred Extremities exam: PRESENT: full ROM. ABSENT: calf tenderness, clubbing, pedal edema Neurological exam: PRESENT: alert, awake, oriented to person, oriented to place , oriented to time, oriented to situation, CN II-XII grossly intact. ABSENT: motor sensory deficit Psychiatric exam: PRESENT: appropriate affect, normal mood. ABSENT: homicidal ideation, suicidal ideation Skin exam: PRESENT: dry, intact, warm. ABSENT: cyanosis, rash Results Laboratory Results: 05/07/17 08:22 05/08/17 05:42 05/07/17 05/08/17 08:22 05:42 Sodium 138.4 Potassium 3.9 Chloride 102 Carbon Dioxide 30 Anion Gap 6 BUN 26 H Creatinine 1.12 Est GFR ( Amer) > 60 Est GFR (Non-Af Amer) > 60 Glucose 89 Calcium 8.9 Magnesium 2.0 Total Bilirubin 0.6 AST 21 ALT 35 Alkaline Phosphatase 59 Total Protein 4.6 L Albumin 2.7 L 05/02/17 14:09 Blood Blood Culture - Final NO GROWTH IN 5 DAYS 05/05/17 05/07/17 05/08/17 16:55 08:22 05:42 NT-Pro-B Natriuret Pep 9140 H 5110 H 5240 H Impressions: Chest X-Ray 05/05/17 00:00 IMPRESSION: Stable radiographic appearance of the chest, again demonstrating bibasilar and right mid lung opacities with small bilateral pleural effusions. Qualifiers PATEINT BEING DISCHARGED WITH ANY OF THE FOLLOWING DIAGNOSIS?: No
--- NOTE | 2017-05-08 20:24 | PDOC PROGRESS REPORT ---
Subjective Progress Note for:: 05/08/17 Subjective:: Patient seems to be doing better with very gradual improvement. Pt is denying any chest arm or neck discomfort. Patient denying any PND, orthopnea. Patient denied any sustained palpitations, dizziness, syncope, near syncope. Patient denying any fever chills. Patient denying any other significant discomfort. Patient is maintaining sinus rhythm with 2-1 heart block intermittent. Patient had a episode of atrial fibrillation with slow ventricular response but relatively asymptomatic. Review of systems: Rest review of systems negative. Medications: Medications have been reviewed. Reason For Visit: CAP Physical Exam Vital Signs: Temp Pulse Resp BP Pulse Ox 97.3 F 46 L 20 125/40 L 98 05/08/17 11:28 05/08/17 11:28 05/08/17 11:28 05/08/17 11:28 05/08/17 11:28 Intake & Output 05/07/17 05/08/17 05/09/17 06:59 06:59 06:59 Intake Total 1970 2153 Output Total 1250 375 Balance 720 1778 Weight 77 kg 78 kg Exam: GENERAL: well-nourished and in no acute distress. Alert and oriented x3 HEAD: Atraumatic, normocephalic. EYES: Pupils equal round and reactive to light, extraocular movements intact, sclera anicteric, conjunctiva are normal. ENT: TMs normal, nares patent, oropharynx clear without exudates. Moist mucous membranes. No oral ulcerations or bleeding gums noted NECK: supple without lymphadenopathy. Trachea is central. No cervical or axillary lymphadenopathy noted. Carotids are 2+, JVD WNL LUNGS: Respiration seems nonlabored, no significant accessory muscle action noted. Breath sounds clear to auscultation bilaterally and equal noted. No wheezes rales or rhonchi noted. No significant dullness noted on percussion. CHEST: Palpation of the chest wall shows no significant chest wall tenderness. No other significant abnormalities noted. 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 ABDOMEN: Soft, no significant tenderness appreciated, normoactive bowel sounds. No guarding, no rebound. No rigidity noted . No masses appreciated. EXTREMITIES: Pedal pulses are 1-2+, no calf tenderness noted. No clubbing or cyanosis.trace to 1+ pedal edema noted NEUROLOGICAL: Focused neurological exam showed no significant neurologic deficit. Normal speech, no focal weakness appreciated. PSYCH: Normal mood, normal affect. Judgment and insight within normal limits. SKIN: No significant ecchymosis, rash, ulcerations or signs of pruritus noted. MUSCULOSKELETAL EXAM: No significant joint swelling noted. Results Laboratory Results: 05/07/17 08:22 05/08/17 05:42 05/07/17 05/08/17 08:22 05:42 Sodium 138.4 Potassium 3.9 Chloride 102 Carbon Dioxide 30 Anion Gap 6 BUN 26 H Creatinine 1.12 Est GFR ( Amer) > 60 Est GFR (Non-Af Amer) > 60 Glucose 89 Calcium 8.9 Magnesium 2.0 Total Bilirubin 0.6 AST 21 ALT 35 Alkaline Phosphatase 59 Total Protein 4.6 L Albumin 2.7 L 05/02/17 14:09 Blood Blood Culture - Final NO GROWTH IN 5 DAYS 05/05/17 05/07/17 05/08/17 16:55 08:22 05:42 NT-Pro-B Natriuret Pep 9140 H 5110 H 5240 H EKG Comments: Twelve-lead EKG from this morning shows sinus rhythm with possible 2-1 AV block. A previous EKG strip shows presence of atrial fibrillation. Impressions: Chest X-Ray 05/05/17 00:00 IMPRESSION: Stable radiographic appearance of the chest, again demonstrating bibasilar and right mid lung opacities with small bilateral pleural effusions. Assessment & Plan - Diagnosis (1) Aortic stenosis Qualifiers: Cardiac valve disease etiology: etiology unspecified Qualified Code(s): I35.0 - Nonrheumatic aortic (valve) stenosis Is this a current diagnosis for this admission?: Yes (2) ARF (acute renal failure) Qualifiers: Acute renal failure type: unspecified Qualified Code(s): N17.9 - Acute kidney failure, unspecified Is this a current diagnosis for this admission?: Yes (3) Acute respiratory failure with hypoxia Is this a current diagnosis for this admission?: Yes (4) CHF (congestive heart failure) Qualifiers: Congestive heart failure type: combined Congestive heart failure chronicity : acute on chronic Qualified Code(s): I50.43 - Acute on chronic combined systolic (congestive) and diastolic (congestive) heart failure Is this a current diagnosis for this admission?: Yes (5) Right lower lobe pneumonia Qualifiers: Pneumonia type: due to unspecified organism Qualified Code(s): J18.1 - Lobar pneumonia, unspecified organism Is this a current diagnosis for this admission?: Yes (6) AV block, 2nd degree Is this a current diagnosis for this admission?: Yes - Notes Notes: Aortic stenosis: Patient noted to have severe to critical aortic stenosis. Patient claims that he knew about this condition from before and has declined to pursue any therapeutic intervention. Discussed now that he also has AV block there is increased risk of sudden cardiac . Patient still does not want any resuscitative procedure or any cardiac intervention such as pacemaker placement and aortic valve interventions. Congestive heart failure: Most likely related to diastolic dysfunction and aortic stenosis. Continue diuretic therapy. Currently patient is compensated. Right lower lobe pneumonia: This has significantly improved to resolved.. Acute hypoxic respiratory failure: Resolved. Continue with oxygen supplementation, bronchodilator therapy and antibiotic therapy. Most likely related to COPD with underlying pneumonia. Acute renal failure: [place] to be related to metabolic reasons. This seems to have stabilized to improved. 2-1 AV block: Discussed progression to complete heart block and increased risk of sudden cardiac . Patient does understand this and does not want any operative intervention at this point. Discussed that there is increased need for pacemaker. There is some associated sudden cardiac . Overall prognosis is grave due to progressive aortic stenosis and now AV block. Had a long discussion with patient's grandson, yesterday, who participates in decision making and also patient himself who does want to make his own decision. Above also discussed with the patient today. Discussed increased risk of sudden cardiac because of heart block and also because of severe aortic stenosis but patient does not want operative intervention. Patient otherwise significantly improved and is being discharged today. Patient encouraged to follow-up with his primary care test specialist. Patient being discharged today. Patient encouraged to follow-up with Dr. Sada CARTER. - Time Time with patient: Greater than 35 minutes - CODE STATUS : was discussed, patient remains DO NOT RESUSCITATE. Surrogate decision-maker unchanged. Multiple medical problems were addressed. More than 50% of the time spent coordinating care, discussing management plans with involved caregivers. Management plans discussed with involved personnels. Medical decision making was of moderate to high complexity, patient's has multiple comorbidities. Medications reviewed and adjusted accordingly: Yes
== END 2017-05-08 12:37 | disposition home or self-care (01) | DRG 291 ==
LOC: ER 09:52 → EH 12:40 → 3S 17:55
PROVIDERS: ADMIT Pediatrics; ATTEND Pediatrics
DX: I50.43 Acute on chronic combined systolic (congestive) and diastolic (congestive) heart failure (principal); J96.01 Acute respiratory failure with hypoxia; J18.1 Lobar pneumonia, unspecified organism; J44.1 Chronic obstructive pulmonary disease with (acute) exacerbation; N17.9 Acute kidney failure, unspecified; J44.0 Chronic obstructive pulmonary disease with (acute) lower respiratory infection; Z66 Do not resuscitate; I35.0 Nonrheumatic aortic (valve) stenosis; I10 Essential (primary) hypertension; I44.1 Atrioventricular block, second degree; E87.6 Hypokalemia; I48.0 Paroxysmal atrial fibrillation; Z60.2 Problems related to living alone; Z79.51 Long term (current) use of inhaled steroids; Z79.899 Other long term (current) drug therapy; Z87.891 Personal history of nicotine dependence
CPT/HCPCS: 36415; 71010; 80048; 80053; 81001; 82550; 82553; 83735; 83880; 84484; 85025; 85027; 87040; 87086; 93005; 93010; 93306; 94640; 94660; 94667; 94668; 94799; 96374; 96375; 99285; G8978-GP; G8979-GP; J0696; J1644; J1940; J3490; J7060

== ENCOUNTER 2017-06-22 09:03 | Inpatient (IN) | payer MEDICARE, OTHER ==
--- NOTE | 2017-06-22 10:08 | ER Document Report ---
ED General - General Chief Complaint: Breathing Difficulty Stated Complaint: DIZZINESS Time Seen by Provider: 06/22/17 10:01 Notes: Patient was brought to the emergency department by EMS for difficulty breathing and feeling as if he cannot breathe. He has been getting short of breath over the last 3-4 days, especially worse for the past 2 days. He gets better and then worse. Does not have any chest pains, however. Patient had a similar presentation for which she was admitted to this hospital with a diagnosis of pneumonia in April. He is coughing up some phlegm. But not running any fever. Patient has a nebulizer at home and is using it with no relief. Denies a history of asthma or COPD. He is also on 2 diuretics, Spironolactone and furosemide. He has not taking these pills so far today. Patient noted that he is having some pretibial swelling for the past 3-4 days. Did not get flu shot this year or in the past 40 years. Patient is not on home oxygen. He has with him an executed DNR order not to be resuscitated if his heart stops or he stops breathing. Patient has a faulty aortic valve, diagnosed about 4 years ago, which has been recommended to be replaced, but the patient declined and then it was felt that his age and general condition would not permit surgery. TRAVEL OUTSIDE OF THE [place] IN LAST 30 DAYS: No - Related Data Allergies/Adverse Reactions: No Known Allergies Allergy (Verified 06/22/17 09:18) Past Medical History - Social History Smoking Status: Former Smoker - Stopped in 1985 Cigarette use (# per day): No Frequency of alcohol use: 1 beer daily Drug Abuse: None Family History: Reviewed & Not Pertinent, Hypertension Patient has suicidal ideation: No Patient has homicidal ideation: No - Past Medical History Cardiac Medical History: Reports: Hx Hypertension Denies: Hx Congestive Heart Failure Neurological Medical History: Denies: Hx Cerebrovascular Accident Renal/ Medical History: Reports: Hx Benign Prostatic Hyperplasia Past Surgical History: Reports: Hx Abdominal Surgery - b/l hernia repair Review of Systems - Review of Systems Notes: REVIEW OF SYSTEMS: CONSTITUTIONAL : Denies fever. EENT: Denies eye, ear, nose or mouth or throat pain or other symptoms. CARDIOVASCULAR: Denies chest pain. Swelling of lower extremities for the past 3-4 days. RESPIRATORY: See HPI. GASTROINTESTINAL: Denies abdominal pain or nausea, vomiting, or diarrhea. GENITOURINARY: Denies difficulty or painful urinating, urinary frequency, blood in urine. MUSCULOSKELETAL: Denies back or neck pain. Denies joint pain or swelling. SKIN: Denies rash or skin lesions. NEUROLOGICAL: Denies LOC or altered mental status. Denies headache. Denies sensory loss or motor deficits. ALL OTHER SYSTEMS REVIEWED AND NEGATIVE. Physical Exam - Vital signs Vitals: Resp BP Pulse Ox 24 H 126/53 H 93 06/22/17 09:07 06/22/17 09:07 06/22/17 09:07 Interpretation: Hypoxic - Per nurse, O2 sat less than 90% here - Notes Notes: PHYSICAL EXAMINATION: GENERAL: Well-appearing, in no acute distress. Awake, alert, and oriented 3. Patient agrees that he is a DNR patient. HEAD: Atraumatic, normocephalic. EYES: Pupils equal round and reactive to light, extraocular movements intact. ENT: oropharynx clear without exudates. Moist mucous membranes. NECK: Normal range of motion, supple. No carotid bruits heard. LUNGS: Breath sounds clear and equal bilaterally. HEART: Regular rate and rhythm without murmurs. Patient's heart sounds are very distant and I do not hear a murmur at this time. Occasional ectopy heard. ABDOMEN: Soft, nontender. No guarding or rebound. No masses. BACK: No tenderness throughout entire back. EXTREMITIES: Normal range of motion without pain. +2 pitting edema pretibially bilaterally. NEUROLOGICAL: Normal speech, normal gait. Normal sensory, motor, and reflex exams. Awake, alert, and oriented x3. Cranial nerves normal. PSYCH: Normal mood, normal affect. SKIN: Warm, dry, no rashes. Course - Re-evaluation Re-evalutation: 06/22/17 11:57 Patient's troponin came back at 0.5. Chest x-ray read by radiology as pneumonia and possible pulmonary edema. BNP was 11,000. Spoke with hospitalist who will admit the patient. Rocephin started IV and Lasix 20 mg IV given. - Vital Signs Vital signs: Temp Pulse Resp BP Pulse Ox 97.9 F 21 H 120/75 96 06/22/17 09:17 06/22/17 10:45 06/22/17 10:45 06/22/17 10:45 - Laboratory Result Diagrams: 06/22/17 09:20 06/22/17 09:20 Laboratory results interpreted by me: 06/22/17 06/22/17 06/22/17 09:20 09:20 09:20 RDW 15.3 H Creatinine 1.34 H Est GFR (Non-Af Amer) 50 L Glucose 118 H NT-Pro-B Natriuret Pep 25215 H Total Protein 5.5 L Ur Leukocyte Esterase Urine Ascorbic Acid 06/22/17 10:54 RDW Creatinine Est GFR (Non-Af Amer) Glucose NT-Pro-B Natriuret Pep Total Protein Ur Leukocyte Esterase TRACE H Urine Ascorbic Acid 20 H - Diagnostic Test Radiology reviewed: Image reviewed Radiology results interpreted by me: 06/22/17 11:58 Chest x-ray shows pneumonia versus pulmonary edema. - EKG Interpretation by Me EKG shows normal: Sinus rhythm - Intermittent ectopic atrial rhythm. Rate: Normal - Heart rate 97 by EKG here today. [place]/QRS: RBBB - Patient's previous EKG May 08 of this year showed complete heart block with 2-1 conduction and a heart rate of 44. Pacemaker has not been recommended. Heart block present: [place] 2 Discharge - Discharge Clinical Impression: Pneumonia, Pulmonary edema, Hypoxia Condition: Fair Disposition: ADMITTED INPATIENT Admitting Provider: Hospitalist Unit Admitted: Telemetry Referrals: KARY LOZOYA DO [Primary Care Provider] - Follow up as needed
--- NOTE | 2017-06-22 10:40 | RADIOLOGY REPORT (SQ) ---
EXAM DESCRIPTION: CHEST PA/LAT COMPLETED DATE/TIME: 06/22/2017 10:26 am REASON FOR STUDY: S OB and difficulty breathing, edema pretibial COMPARISON: None. EXAM PARAMETERS: NUMBER OF VIEWS: two views TECHNIQUE: Digital Frontal and Lateral radiographic views of the chest acquired. RADIATION DOSE: NA LIMITATIONS: none FINDINGS: LUNGS AND PLEURA: Mild diffuse increased interstitial densities most prominently in the ba ses with some patchy abnormal air space density in the bases. Findings may rib be related to pulmona ry edema and congestive failure or upper heart is not enlarged and there is no significant effusion. Pneumonia is also consideration. MEDIASTINUM AND HILAR STRUCTURES: No masses or contour abnormalities. HEART AND VASCULAR STRUCTURES: Cardiac silhouette is of normal size. Moderate vascular congestion. BONES: No acute findings. HARDWARE: None in the chest. OTHER: No other significant finding. IMPRESSION: Pulmonary edema versus pneumonia. TECHNICAL DOCUMENTATION: JOB ID: [id number] [employer]- All Rights Reserved
[2017-06-22 10:44] LABS: ABSOLUTE BASOPHILS # (AUTO) 0.2 10^3/uL (0.0-0.2); ABSOLUTE EOSINOPHILS # (AUTO) 0.3 10^3/uL (0.0-0.6); ABSOLUTE LYMPHOCYTES (AUTO) 1.3 10^3/uL (0.5-4.7); ABSOLUTE MONOCYTES (AUTO) 0.8 10^3/uL (0.1-1.4); ABSOLUTE NEUT (AUTO) 6.3 10^3/uL (1.7-8.2); BASOPHILS % (AUTO) 1.7 % (0-2); EOSINOPHILS % (AUTO) 3.2 % (0-6); HEMATOCRIT 45.2 % (37.9-51.0); LYMPHOCYTES % (AUTO) 14.7 % (13-45); MEAN CORPUSCULAR HEMOGLOBIN 30.9 pg (27.0-33.4); MEAN CORPUSCULAR HGB CONC 33.1 g/dL (32.0-36.0); MEAN CORPUSCULAR VOLUME 93 fl (80-97); MONOCYTES % (AUTO) 9.6 % (3-13); PLATELET COUNT 273 10^3/uL (150-450); RED BLOOD COUNT 4.85 10^6/uL (4.35-5.55); RED CELL DISTRIBUTION WIDTH 15.3 % (11.5-14.0); SEGMENTED NEUTROPHILS % (AUTO) 70.8 % (42-78); TOTAL CELLS COUNTED % (AUTO) 100 %; WHITE BLOOD COUNT 8.8 10^3/uL (4.0-10.5)
--- NOTE | 2017-06-22 10:44 | RADIOLOGY REPORT (SQ) ---
EXAM DESCRIPTION: CT HEAD WITHOUT COMPLETED DATE/TIME: 06/22/2017 10:32 am REASON FOR STUDY: Hx dementia,? Syncope COMPARISON: 10/04/2007 TECHNIQUE: Axial images acquired through the brain without intravenous contrast. Images reviewed wi th bone, brain and subdural windows. Images stored on PACS. All CT scanners at this facility use dose modulation, iterative reconstruction, and/or weight based d osing when appropriate to reduce radiation dose to as low as reasonably achievable (ALARA). [facility]: Dose Right [facility]: CareDose [facility]: Dose Right [facility]: Teradose 4D [facility]: Smart U[place]ove RADIATION DOSE: CT Rad equipment meets quality standard of care and radiation dose reduction techniq ues were employed. CTDIvol: 64.6 mGy. DLP: 1163 mGy-cm. mGy. LIMITATIONS: None. FINDINGS: VENTRICLES: Mild atrophy CEREBRUM: No masses. No hemorrhage. No midline shift. No evidence for acute infarction. Few scatte red areas of low density in the white matter most likely chronic small vessel ischemic changes. CEREBELLUM: No masses. No hemorrhage. No alteration of density. No evidence for acute infarction. EXTRAAXIAL SPACES: No fluid collections. No masses. ORBITS AND GLOBE: No intra- or extraconal masses. Normal contour of globe without masses. CALVARIUM: No fracture. PARANASAL SINUSES: No fluid or mucosal thickening. SOFT TISSUES: No mass or hematoma. OTHER: No other significant finding. IMPRESSION: 1. No evidence of acute event. 2. Atrophy and minimal chronic small vessel ischemic disease. EVIDENCE OF ACUTE STROKE: NO. COMMENT: Quality ID # [id number]: Final reports with documentation of one or more dose reduction techniques (e.g., Automated exposure control, adjustment of the mA and/or kV according to patient size, use of iterative reconstruction technique) TECHNICAL DOCUMENTATION: JOB ID: [id number] [employer]- All Rights Reserved
[2017-06-22 10:53] LABS: ALANINE AMINOTRANSFERASE 29 U/L (21-72); ALBUMIN 3.7 g/dL (3.5-5.0); ALKALINE PHOSPHATASE 67 U/L (38-126); ANION GAP 10 (5-19); ASPARTATE AMINO TRANSFERASE 28 U/L (17-59); BILIRUBIN,DIRECT 0.1 mg/dL (0.0-0.4); BILIRUBIN,TOTAL 0.7 mg/dL (0.2-1.3); BLOOD UREA NITROGEN 19 mg/dL (7-20); CALCIUM 9.2 mg/dL (8.4-10.2); CARBON DIOXIDE 27 mmol/L (22-30); CHLORIDE 104 mmol/L (98-107); GLUCOSE 118 mg/dL (75-110); POTASSIUM 4.1 mmol/L (3.6-5.0); SODIUM 140.9 mmol/L (137-145); TOTAL PROTEIN 5.5 g/dL (6.3-8.2)
--- NOTE | 2017-06-22 10:59 | EKG REPORT ---
SEVERITY:- ABNORMAL ECG - SINUS RHYTHM FREQUENT APCs RIGHT BUNDLE BRANCH BLOCK : Confirmed by: Rojelio Card 22-Jun-2017 10:58:04
[2017-06-22 11:06] LABS: CREATINE KINASE MB 2.69 ng/mL (<4.55)
[2017-06-22 11:09] LABS: TROPONIN I 0.507 ng/mL
[2017-06-22 11:13] LABS: APPEARANCE,URINE SLIGHTLY-CLOUDY; BILIRUBIN,URINE NEGATIVE (NEGATIVE); COLOR,URINE YELLOW; GLUCOSE, URINE NEGATIVE (NEGATIVE); KETONES,URINE NEGATIVE (NEGATIVE); LEUKOCYTE ESTERASE,URINE TRACE (NEGATIVE); NITRITE,URINE NEGATIVE (NEGATIVE); PROTEIN,URINE NEGATIVE (NEGATIVE); URINE SPECIFIC GRAVITY 1.011; UROBILINOGEN,URINE NEGATIVE mg/dL (<2.0)
[2017-06-22] MEDS ORDERED: CEFTRIAXONE INJ 1000 MG VIAL IV ONE (11:38)
[2017-06-22] MEDS ORDERED: FUROSEMIDE INJ/PF 20 MG/2 ML SDV IV ONE (11:41)
[2017-06-22] MEDS ORDERED: ONDANSETRON HCL INJ/PF 4 MG/2 ML SDV IV PRN (13:11)
[2017-06-22] MEDS ORDERED: ACETAMINOPHEN 325 MG TABLET PO PRN (13:11)
[2017-06-22] MEDS ORDERED: MAG HYDROX/AL HYDROX/SIMETH SUSP 30 ML UDCUP PO PRN (13:11)
[2017-06-22] MEDS ORDERED: LEVALBUTEROL HCL NEB 0.63 MG/3 ML AMPUL NEB PRN (13:25)
--- NOTE | 2017-06-22 16:16 | PDOC H&P ---
History of Present Illness Admission Date/PCP: 06/22/17 13:10 KARY LOZOYA DO Patient complains of: Dyspnea History of Present Illness: ZARIA ALMAGUER is a 87 year old male with a past medical history of COPD, severe aortic stenosis, hypertension, diastolic CHF, and second-degree AV block who presented to the emergency department today with a complaint of dizziness of sudden onset this morning while in the shower. The patient states that he ran out of his spinal lactone approximately 4 days ago. He noticed edema to the bilateral lower extremities beginning the following day that have progressively worsened. He states that he began to parenting dyspnea while at rest last night. Upon further questioning, the patient does endorse chest pressure with activity. He states that he first experienced chest pressure while ambulating yesterday afternoon. He states that the pain was relieved with rest but does predictably recur with walking short distances. Evaluation in the emergency department reveals mildly elevated creatinine to 1.34, proBNP greater than 11,000, chest x-ray suggestive of pulmonary edema versus pneumonia, and an elevated troponin of 0.507. He is referred to the hospitalist service for admission. Past Medical History Cardiac Medical History: Reports: Congestive Heart Failure, Hypertension, Heart Murmur, Other - Severe aortic stenosis, second-degree AV block, PAF Pulmonary Medical History: Reports: Chronic Obstructive Pulmonary Disease (COPD) EENT Medical History: Reports: None Neurological Medical History: Reports: None Endocrine Medical History: Reports: None Renal/ Medical History: Reports: None Malignancy Medical History: Reports: None GI Medical History: Reports: None Musculoskeltal Medical History: Reports: Arthritis Skin Medical History: Reports: None Psychiatric Medical History: Reports: None Traumatic Medical History: Reports: None Hematology: Reports: None Infectious Medical History: Reports: None Past Surgical History Past Surgical History: Reports: None Social History Information Source: Patient, Relative Lives with: Alone Smoking Status: Former Smoker Last Time Smoked: 1985 Frequency of Alcohol Use: Rare Hx Recreational Drug Use: No Drugs: None Hx Prescription Drug Abuse: No Family History Family History: Reviewed & Not Pertinent, Hypertension Parental Family History Reviewed: Yes Children Family History Reviewed: Yes Sibling(s) Family History Reviewed.: Yes Medication/Allergy Home Medications: Aspirin [Aspirin 81 mg Chewable Tablet] 81 mg PO DAILY 06/22/17 Furosemide [Lasix 40 mg Tablet] 40 mg PO QAM 06/22/17 Levalbuterol HCl [Xopenex Neb 0.63 mg/3 ml Ampul] 0.63 mg NEB [id number] PRN Multivitamin [Tab-A-Jadiel] 1 tab PO DAILY 06/22/17 Spironolactone [Aldactone 25 mg Tablet] 25 mg PO Q12 06/22/17 Tamsulosin HCl [Flomax 0.4 mg Cap.sr] 0.4 mg PO PCSUPPER 06/22/17 Timolol Maleate [Timoptic 0.5% Oph Soln 5 ml] 1 drop OU QHS 06/22/17 Allergies/Adverse Reactions: No Known Allergies Allergy (Verified 06/22/17 09:18) Review of Systems Constitutional: PRESENT: fatigue. ABSENT: chills, fever(s), headache(s), weight gain, weight loss Eyes: ABSENT: visual disturbances Ears: ABSENT: hearing changes Cardiovascular: PRESENT: chest pain, dyspnea on exertion, edema. ABSENT: orthropnea, palpitations Respiratory: PRESENT: cough, dyspnea. ABSENT: hemoptysis Gastrointestinal: ABSENT: abdominal pain, constipation, diarrhea, hematemesis, hematochezia, nausea, vomiting Genitourinary: ABSENT: dysuria, hematuria Musculoskeletal: ABSENT: joint swelling Integumentary: ABSENT: rash, wounds Neurological: PRESENT: dizziness. ABSENT: abnormal gait, abnormal speech, confusion, focal weakness, syncope Psychiatric: ABSENT: anxiety, depression, homidical ideation, suicidal ideation Endocrine: ABSENT: cold intolerance, heat intolerance, polydipsia, polyuria Hematologic/Lymphatic: ABSENT: easy bleeding, easy bruising Physical Exam Vital Signs: Temp Pulse Resp BP Pulse Ox 97.9 F 16 120/75 92 06/22/17 09:17 06/22/17 15:01 06/22/17 15:01 06/22/17 15:01 Intake & Output 06/21/17 06/22/17 06/23/17 06:59 06:59 06:59 Output Total 1225 Balance -1225 General appearance: PRESENT: no acute distress, cooperative, well-developed, well-nourished, other - Overweight Head exam: PRESENT: atraumatic, normocephalic Eye exam: PRESENT: conjunctiva pink, EOMI, PERRLA. ABSENT: scleral icterus Ear exam: PRESENT: normal external ear exam Mouth exam: PRESENT: moist, tongue midline Neck exam: ABSENT: carotid bruit, JVD, lymphadenopathy, thyromegaly Respiratory exam: PRESENT: crackles - Throughout, symmetrical, unlabored, other - Supplemental oxygen via nasal cannula. ABSENT: rales, wheezes Cardiovascular exam: PRESENT: irregular rhythm, +S1, +S2, systolic murmur. ABSENT: diastolic murmur, rubs Pulses: PRESENT: normal dorsalis pedis pul Vascular exam: PRESENT: normal capillary refill GI/Abdominal exam: PRESENT: normal bowel sounds, soft. ABSENT: distended, guarding, mass, organolmegaly, rebound, tenderness Rectal exam: PRESENT: deferred Extremities exam: PRESENT: full ROM, +2 edema - +2 pitting edema to the lower extremities. ABSENT: calf tenderness, clubbing, pedal edema Neurological exam: PRESENT: alert, awake, oriented to person, oriented to place , oriented to time, oriented to situation, CN II-XII grossly intact. ABSENT: motor sensory deficit Psychiatric exam: PRESENT: appropriate affect, normal mood. ABSENT: homicidal ideation, suicidal ideation Skin exam: PRESENT: dry, intact, warm. ABSENT: cyanosis, rash Results Laboratory Results: 06/22/17 14:05 Troponin I 0.689 Impressions: Chest X-Ray 06/22/17 10:02 IMPRESSION: Pulmonary edema versus pneumonia. Head CT 06/22/17 10:16 IMPRESSION: 1. No evidence of acute event. 2. Atrophy and minimal chronic small vessel ischemic disease. EVIDENCE OF ACUTE STROKE: NO. Assessment & Plan - Diagnosis (1) CHF (congestive heart failure) Qualifiers: Qualified Code(s): I50.43 - Acute on chronic combined systolic (congestive) and diastolic (congestive) heart failure Is this a current diagnosis for this admission?: Yes Plan: Acute on chronic diastolic congestive heart failure. The patient presents with a complaint of dizziness, dyspnea, thin clear productive cough, bilateral lower extremity edema, and fatigue that began shortly after running out of his spironolactone. Chest x-ray reveals pulmonary edema. ProBNP is elevated to greater than 11,000. The patient does appear to be fluid volume overloaded. He will be admitted to the medical floor on continuous cardiac telemetry. The patient has already received 20 mg of IV furosemide in the emergency department. Will continue diuresis with IV Lasix 20 mg twice daily. We will resume the patient's home medications. Echocardiogram has been ordered. Will also consult cardiology; appreciate their evaluation and recommendations. (2) Elevated troponin Is this a current diagnosis for this admission?: Yes Plan: The patient presents with a complaint of angina in the setting of acute on chronic CHF and severe aortic stenosis. His EKG reveals a sinus rhythm with a right bundle branch block. No evidence of ST segment elevation or depression. Initial troponin is elevated to 0.507 and is trending upward; now 0.689. I am uncertain if the elevated troponin is related to demand ischemia secondary to an acute CHF exacerbation versus evidence of an acute coronary syndrome that precipitated the CHF exacerbation. The patient has indicated that he does not wish to have aggressive or surgical interventions. However, he does request medical management. Therefore will place the patient on full dose Lovenox, daily aspirin, and statin therapy. We will obtain an echocardiogram and consult cardiology; appreciate cardiology' s evaluation and recommendations. (3) Pulmonary edema Qualifiers: Chronicity: acute Qualified Code(s): J81.0 - Acute pulmonary edema Is this a current diagnosis for this admission?: Yes Plan: Secondary to CHF exacerbation. The patient did receive 1 dose of IV Rocephin per the ED for a possible pneumonia. However, the patient has been afebrile, reports a thin clear productive cough, and has a normal WBC count. I believe that his CXR and symptoms are directly related to a CHF exacerbation with pulmonary edema and does not represent an infectious process. Therefore, I do not believe that the patient has pneumonia and will not continue antibiotics at this time. The patient will receive IV diuresis. He is provided BiPAP nightly and the prn; he is to wear for Bipap for at least 4 hours during the day. Supplemental oxygen as needed to maintain oxygen saturations greater than 88%. (4) ARF (acute renal failure) Qualifiers: Acute renal failure type: unspecified Qualified Code(s): N17.9 - Acute kidney failure, unspecified Plan: Likely secondary to hypoperfusion in the setting of an acute CHF exacerbation. Will optimize cardiac function as above. Will avoid nephrotoxic medications. Will monitor with daily chemestry. (5) AV block, 2nd degree Is this a current diagnosis for this admission?: Yes Plan: The patient is on continuous cardiac telemetry. Cardiology has been consulted; appreciate their evaluation and recommendations. (6) Aortic stenosis Qualifiers: Cardiac valve disease etiology: etiology unspecified Qualified Code(s): I35.0 - Nonrheumatic aortic (valve) stenosis Is this a current diagnosis for this admission?: Yes Plan: Unfortunately, the patient has severe aortic stenosis and has, on multiple occasions, been recommended to have valve repair. The patient states that he is not interested in surgical interventions. He is currently receiving IV furosemide for an acute CHF exacerbation with evidence of fluid volume overload. Monitor closely for hypotension. Cardiology has been consulted. I did introduce the concept of hospice to the patient. He is agreeable to meeting with the palliative care/hospice team. Does confirm that he is a DNR/ DNI, however, does ask me to be "aggressive with my medications to get me out of this." A review of the patient's MOST form does indicate that the patient has requested to be comfort care only in the past, however, both he and his daughter request medical management at this time. Will ask palliative care to meet with the patient and family and clarify goals of care. - Time Time Spent: Greater than 70 Minutes Medications reviewed and adjusted accordingly: Yes - Inpatient Certification Based on my medical assessment, after consideration of the patient's comorbidities, presenting symptoms, or acuity I expect that the services needed warrant INPATIENT care.: Yes I certify that my determination is in accordance with my understanding of Medicare's requirements for reasonable and necessary INPATIENT services [42 CFR 412.3e].: Yes Medical Necessity: Need Close Monitoring Due to Risk of Patient Decompensation
[2017-06-22] MEDS ORDERED: ATORVASTATIN CALCIUM 20 MG TABLET PO ONE (17:00)
[2017-06-22] MEDS: TAMSULOSIN HCL 0.4 MG CAP.SR.24H PO SCH (17:27)
--- NOTE | 2017-06-22 18:43 | XCELERA REPORT ---
[address] [address] Transthoracic Echocardiogram Report Name: ZARIA ALMAGUER Age: 87 yrs Gender: Male : 1930 Patient Status: Inpatient [address] Study Date: 06/22/2017 04:01 PM Height: 67 in Weight: 166 lb BSA: 1.9 m2 Procedure: A complete two-dimensional transthoracic echocardiogram was performed (2D, M-mode, spectral and color flow Doppler). The study was technically difficult with many images being suboptimal in quality. Reason For Study: CHF, , elevated troponin ?nonstemi vs demand isc Ordering Physician: KATHRYN LEYVAC Performed By: Юлия Irving Interpretation Summary The study was technically difficult with many images being suboptimal in quality. Left ventricular systolic function is low normal. There is mild concentric left ventricular hypertrophy. The left ventricle is grossly normal size. LV diastolic function could not be adequately assessed. Wall motion cannot be accurately commented on, but no definite regional wall motion abnormalities noted. The right ventricular systolic function is normal. The left atrium is mildly dilated. The right atrium is normal in size There is a moderate amount of mitral regurgitation There is no mitral valve stenosis. There is severe aortic stenosis There is a peak gradient of average of approx 50 mm of Hg. There is a moderate amount of aortic regurgitation There is a trace to mild amount of tricuspid regurgitation There is mild pulmonary hypertension by echo Right ventricular systolic pressure is estimated to be elevated at 30- 40mmHg. There is no pericardial effusion. MMode/2D Measurements & Calculations RVDd: 2.8 cm LVIDd: 4.8 cm FS: 24.5 % MV Diam: 2.6 cm IVSd: 1.00 cm LVIDs: 3.6 cm EDV(Teich): 107.3 ml LVPWd: 1.0 cm ESV(Teich): 55.2 ml EF(Teich): 48.6 % Ao root diam: 3.0 cm LVOT diam: 2.3 cm Ao root area: 7.2 [id number] area: 4.1 cm2 LA dimension: 3.9 cm Doppler Measurements & Calculations MV E max lianne: MV area (1 diam): MV P1/2t max lianne: Ao V2 max: 91.8 cm/sec 5.5 cm2 91.3 cm/sec 372.8 cm/sec MV A max lianne: MV Flow area MV P1/2t: 41.7 msec Ao max P.8 cm/sec (1diam): 5.5 cm2 MVA(P1/2t): 5.3 cm2 55.9 mmHg MV E/A: 1.0 MV dec slope: Ao V2 mean: 641.3 cm/sec2 270.8 cm/sec Ao mean P.9 mmHg Ao V2 VTI: 84.4 cm TIGIST(I,D): 0.82 cm2 TIGIST(V,D): 0.61 cm2 LV V1 max PG: MR max lianne: SV(LVOT): 69.2 ml PA V2 max: 1.3 mmHg 621.8 cm/sec 80.9 cm/sec LV V1 mean PG: MR max PG: PA max P.74 mmHg 154.8 mmHg 2.6 mmHg LV V1 max: 56.2 cm/sec LV V1 mean: 40.5 cm/sec LV V1 VTI: 17.0 cm TR max lianne: 276.3 cm/sec TR max P.5 mmHg Left Ventricle The left ventricle is grossly normal size. There is mild concentric left ventricular hypertrophy. Left ventricular systolic function is low normal. LV diastolic function could not be adequately assessed. Wall motion cannot be accurately commented on, but no definite regional wall motion abnormalities noted. Right Ventricle The right ventricle is grossly normal size. There is normal right ventricular wall thickness. The right ventricular systolic function is normal. Atria The right atrium is normal in size. The left atrium is mildly dilated. Interarterial septum not well visualized and not well dopplered. Cannot comment on ASD/PFO presence. Mitral Valve The mitral valve is grossly normal. There is no mitral valve stenosis. There is a moderate amount of mitral regurgitation. Aortic Valve The aortic valve is moderately calcified. There is severe aortic stenosis. There is a peak gradient of average of approx 50 mm of Hg. There is a moderate amount of aortic regurgitation. Tricuspid Valve The tricuspid valve is not well visualized, but is grossly normal. There is no tricuspid stenosis. There is a trace to mild amount of tricuspid regurgitation. There is mild pulmonary hypertension by echo. Right ventricular systolic pressure is estimated to be elevated at 30-40mmHg. Pulmonic Valve The pulmonic valve is not well visualized. Great Vessels The aortic root is not well visualized. The inferior vena cava was not well visualized. Effusions There is no pericardial effusion. : ZEYAD LEYVA > [facility]
--- NOTE | 2017-06-22 19:22 | PDOC CONSULTATION ---
Consultation Consult Date: 06/22/17 Attending physician:: LOUIS LARA Consult reason:: Non-STEMI History of Present Illness Admission Date/PCP: 06/22/17 13:10 KARY LOZOYA DO Patient complains of: Shortness of breath and pedal edema History of Present Illness: ZARIA ALMAGUER is a 87 year old male with a past medical history of COPD, severe aortic stenosis, hypertension, diastolic CHF, and second-degree AV block who presented to the emergency department today with a complaint of dizziness of sudden onset this morning while in the shower. The patient states that he ran out of his spironolactone approximately 4 days ago. He noticed edema to the bilateral lower extremities beginning the following day that have progressively worsened. He states that he began to parenting dyspnea while at rest last night. Upon further questioning, the patient does endorse chest pressure with activity. He states that he first experienced chest pressure while ambulating yesterday afternoon. He also claims that he had some chest discomfort about 2 weeks ago while sitting out in the cold air. He states that the pain was relieved with rest but does predictably recur with walking short distances. Evaluation in the emergency department reveals mildly elevated creatinine to 1.34, proBNP greater than 11,000, chest x-ray suggestive of pulmonary edema versus pneumonia, and an elevated troponin of 0.507. He is referred to the hospitalist service for admission. Past Medical History Cardiac Medical History: Reports: Congestive Heart Failure, Hypertension, Heart Murmur, Other - Severe aortic stenosis, second-degree AV block, PAF Pulmonary Medical History: Reports: Chronic Obstructive Pulmonary Disease (COPD) EENT Medical History: Reports: None Neurological Medical History: Reports: None Endocrine Medical History: Reports: None Renal/ Medical History: Reports: None Malignancy Medical History: Reports: None GI Medical History: Reports: None Musculoskeltal Medical History: Reports: Arthritis Skin Medical History: Reports: None Psychiatric Medical History: Reports: None Traumatic Medical History: Reports: None Hematology: Reports: None Infectious Medical History: Reports: None Past Surgical History Past Surgical History: Reports: None Social History Information Source: Patient Lives with: Alone Smoking Status: Former Smoker Last Time Smoked: 1985 Frequency of Alcohol Use: Rare Hx Recreational Drug Use: No Drugs: None Hx Prescription Drug Abuse: No - Advance Directive Resuscitation Status: Do Not Resuscitate Surrogate healthcare decision maker:: Patient's daughter is the surrogate decision-maker Family History Family History: Reviewed & Not Pertinent, Hypertension Parental Family History Reviewed: Yes Children Family History Reviewed: Yes Sibling(s) Family History Reviewed.: Yes Medication/Allergy Home Medications: Aspirin [Aspirin 81 mg Chewable Tablet] 81 mg PO DAILY 06/22/17 Furosemide [Lasix 40 mg Tablet] 40 mg PO QAM 06/22/17 Levalbuterol HCl [Xopenex Neb 0.63 mg/3 ml Ampul] 0.63 mg NEB [id number] PRN Multivitamin [Tab-A-Jadiel] 1 tab PO DAILY 06/22/17 Spironolactone [Aldactone 25 mg Tablet] 25 mg PO Q12 06/22/17 Tamsulosin HCl [Flomax 0.4 mg Cap.sr] 0.4 mg PO PCSUPPER 06/22/17 Timolol Maleate [Timoptic 0.5% Oph Soln 5 ml] 1 drop OU QHS 06/22/17 Allergies/Adverse Reactions: No Known Allergies Allergy (Verified 06/22/17 09:18) Review of Systems Review of Systems: Please see history of present illness and past medical history as wall. Constitutional: No fever or chills reported. Head : No recent chronic headaches, recent head injury. Eyes: No recent eye pain, diplopia, redness, discharge, acute visual changes. Ears: No recent chronic ear pain, acute hearing loss, ear discharge. Oral cavity: No recent ulcerations, bleeding, oral cavity discomfort. Neck: No recent acute neck pain reported. Hematologic: No recent easy bruising or bleeding or hematologic malignancy reported. Lymphatic: No recent lymphatic malignancy, chronic lymphadenopathy reported yet Cardiovascular system review: See history of present illness. Respiratory system review: No recent chronic cough, hemoptysis, blood clots in the lungs reported. Shortness of breath on exertion Gastrointestinal system review: Negative for any recent acute or chronic abdominal pain, hematemesis, melena, recent change in bowel habits. Genitourinary system review: No recent acute or chronic hematuria, flank pain, UTI etc. reported. Skin system review: Negative for any recent abnormal bruising, no rash, no pruritus reported. Neurologic: No prior history of strokes, mini strokes, seizure disorder. Psychologic: No history of major psychosis or major depression reported. Musculoskeletal: Minor aches and pains reported. No acute joint swelling reported. Endocrine: No recent polyuria, polydipsia, recent heat or cold intolerance. Physical Exam Vital Signs: Temp Pulse Resp BP Pulse Ox 97.9 F 95 17 121/64 95 06/22/17 09:17 06/22/17 18:49 06/22/17 17:01 06/22/17 17:01 06/22/17 17:44 Intake & Output 06/21/17 06/22/17 06/23/17 06:59 06:59 06:59 Output Total 1400 Balance -1400 Exam: GENERAL: well-nourished and in no acute distress. Alert and oriented x3 HEAD: Atraumatic, normocephalic. EYES: Pupils equal round and reactive to light, extraocular movements intact, sclera anicteric, conjunctiva are normal. ENT: TMs normal, nares patent, oropharynx clear without exudates. Moist mucous membranes. No oral ulcerations or bleeding gums noted NECK: supple without lymphadenopathy. Trachea is central. No cervical or axillary lymphadenopathy noted. Carotids are 2+, JVD WNL LUNGS: Respiration seems nonlabored, bibasilar fine crackles and mild wheezing noted. CHEST: Palpation of the chest wall shows no significant chest wall tenderness. No other significant abnormalities noted. HEART: [place] [employer], No PSH, 3/6 ANY aortic area, 1/6 lam systolic murmur mitral area , no rubs, no gallops. ABDOMEN: Soft, no significant tenderness appreciated, normoactive bowel sounds. No guarding, no rebound. No rigidity noted . No masses appreciated. EXTREMITIES: Pedal pulses are 1-2+, no calf tenderness noted. No clubbing or cyanosis.1+ pedal edema noted NEUROLOGICAL: Focused neurological exam showed no significant neurologic deficit. Normal speech, no focal weakness appreciated. PSYCH: Normal mood, normal affect. Judgment and insight within normal limits. SKIN: No significant ecchymosis, rash, ulcerations or signs of pruritus noted. MUSCULOSKELETAL EXAM: No significant joint swelling noted. Results Laboratory Results: 06/22/17 14:05 Troponin I 0.689 EKG Comments: Sinus rhythm, second-degree Mobitz type I heart block with right bundle branch block pattern and left axis deviation. Patient has trifascicular heart block Impressions: Chest X-Ray 06/22/17 10:02 IMPRESSION: Pulmonary edema versus pneumonia. Head CT 06/22/17 10:16 IMPRESSION: 1. No evidence of acute event. 2. Atrophy and minimal chronic small vessel ischemic disease. EVIDENCE OF ACUTE STROKE: NO. Assessment & Plan - Diagnosis (1) Elevated troponin Is this a current diagnosis for this admission?: Yes (2) Pulmonary edema Qualifiers: Chronicity: acute Qualified Code(s): J81.0 - Acute pulmonary edema Is this a current diagnosis for this admission?: Yes (3) AV block, 2nd degree Is this a current diagnosis for this admission?: Yes (4) Aortic stenosis Qualifiers: Cardiac valve disease etiology: etiology unspecified Qualified Code(s): I35.0 - Nonrheumatic aortic (valve) stenosis Is this a current diagnosis for this admission?: Yes (5) CHF (congestive heart failure) Is this a current diagnosis for this admission?: Yes (6) NSTEMI (non-ST elevated myocardial infarction) Is this a current diagnosis for this admission?: Yes (7) COPD (chronic obstructive pulmonary disease) Qualifiers: COPD type: unspecified COPD Qualified Code(s): J44.9 - Chronic obstructive pulmonary disease, unspecified Is this a current diagnosis for this admission?: Yes (8) Dyspnea Qualifiers: Dyspnea type: unspecified Qualified Code(s): R06.00 - Dyspnea, unspecified Is this a current diagnosis for this admission?: Yes - Notes Notes: Non-STEMI: Patient noted to have non-STEMI based on history of chest pain and positive troponin I elevation. Patient also in congestive heart failure brought on by severe aortic stenosis in setting of volume overload. Cannot rule out ischemia induced CHF. CHF: Agree with diuretic therapy. 2D echo shows low normal LVEF and severe aortic stenosis. AV block: Currently heart rate satisfactory. May consider discontinuing timolol eyedrop if significant bradycardia develops. Coronary artery disease: Patient currently not having chest pain. However elderly can have silent ischemia. COPD: Currently stable. Dyspnea: Multifactorial, CHF related, could be ischemic or violent could be COPD. Aortic stenosis: Severe patient declines even percutaneous coronary intervention. Troponin I elevation: Related to non-STEMI, possibly CHF. Treatment options somewhat limited in this elderly patient. Patient has similar presentation on an earlier admission. At that time he was advised tertiary care transfer for both aortic valve replacement and pacemaker placement. He was informed that aortic valve replacement can be performed transcutaneously. Patient however declined to pursue any of these options. He continues to decline this option at this point. However if he changes his mind , consider transfer to tertiary care for further care. At this point, continue with diuretics and medical management of his underlying coronary artery disease , aortic stenosis. Overall prognosis is poor. - Time Time Spent: 30 to 50 Minutes - CODE STATUS : was discussed, patient remains DO NOT RESUSCITATE. Surrogate decision-maker unchanged. Multiple medical problems were addressed. More than 50% of the time spent coordinating care, discussing management plans with involved caregivers. Management plans discussed with involved personnels. Medical decision making was of moderate to high complexity, patient's has multiple comorbidities. Medications reviewed and adjusted accordingly: Yes
[2017-06-22] MEDS: SPIRONOLACTONE 25 MG TABLET PO SCH (21:39)
[2017-06-22] MEDS: ENOXAPARIN SODIUM INJ 80 MG/0.8 ML DISP.SYRIN SUBCUT SCH (21:39)
[2017-06-22] MEDS: FAMOTIDINE 20 MG TABLET PO SCH (21:39)
[2017-06-22] MEDS: FUROSEMIDE INJ/PF 20 MG/2 ML SDV IV SCH (21:39)
[2017-06-22] MEDS: TIMOLOL MALEATE 0.5% OPH SOLN 5 ML OU SCH (21:58)
[2017-06-23 08:04] LABS: ANION GAP 8 (5-19); BLOOD UREA NITROGEN 19 mg/dL (7-20); CALCIUM 8.7 mg/dL (8.4-10.2); CARBON DIOXIDE 28 mmol/L (22-30); CHLORIDE 104 mmol/L (98-107); GLUCOSE 91 mg/dL (75-110); POTASSIUM 3.6 mmol/L (3.6-5.0); SODIUM 139.8 mmol/L (137-145)
--- NOTE | 2017-06-23 09:47 | EKG REPORT ---
SEVERITY:- ABNORMAL ECG - SINUS RHYTHM BLOCKED APC FIRST DEGREE AV BLOCK RBBB AND LAFB : Confirmed by: Rojelio Card 23-Jun-2017 09:46:57
--- NOTE | 2017-06-23 09:49 | EKG REPORT ---
SEVERITY:- ABNORMAL ECG - SINUS RHYTHM RIGHT BUNDLE BRANCH BLOCK : Confirmed by: Rojelio Card 23-Jun-2017 09:48:16
[2017-06-23] MEDS ORDERED: ENOXAPARIN SODIUM INJ 30 MG/0.3 ML DISP.SYRIN SUBCUT SCH (10:00)
[2017-06-23] MEDS: ASPIRIN 81 MG TABLET, ENT COATED PO SCH (10:20)
[2017-06-23] MEDS: SPIRONOLACTONE 25 MG TABLET PO SCH ×2 (10:20→22:23)
[2017-06-23] MEDS: FUROSEMIDE INJ/PF 20 MG/2 ML SDV IV SCH ×2 (10:20→22:23)
[2017-06-23] MEDS: FAMOTIDINE 20 MG TABLET PO SCH ×2 (10:20→22:24)
[2017-06-23] MEDS: MULTIVITAMIN TABLET PO SCH (10:20)
[2017-06-23] MEDS: DOCUSATE SODIUM 100 MG CAPSULE PO SCH (10:20)
[2017-06-23] MEDS: ENOXAPARIN SODIUM INJ 80 MG/0.8 ML DISP.SYRIN SUBCUT SCH ×2 (10:25→21:48)
[2017-06-23] MEDS ORDERED: CLOPIDOGREL BISULFATE 300 MG TABLET PO SCH (10:30)
[2017-06-23] MEDS ORDERED: RANOLAZINE 500 MG TAB.SR.12H PO ONE (11:30)
[2017-06-23] MEDS ORDERED: CLOPIDOGREL BISULFATE 75 MG TABLET PO ONE (11:30)
--- NOTE | 2017-06-23 11:51 | PDOC PROGRESS REPORT ---
Subjective Progress Note for:: 06/23/17 Subjective:: Patient seems to be doing better with gradual improvement. Pt is denying any chest arm or neck discomfort. Patient denying any PND, orthopnea. Patient denied any sustained palpitations, dizziness, syncope, near syncope. Patient denying any fever chills. Patient denying any other significant discomfort. Patient is maintaining sinus rhythm. Review of systems: Rest review of systems negative. Medications: Medications have been reviewed. Reason For Visit: HEART FAILURE Physical Exam Vital Signs: Temp Pulse Resp BP Pulse Ox 97.8 F 95 17 117/58 L 97 06/23/17 07:34 06/23/17 07:34 06/23/17 07:34 06/23/17 07:34 06/23/17 09:45 Intake & Output 06/22/17 06/23/17 06/24/17 06:59 06:59 06:59 Intake Total 222 Output Total 2900 Balance -2678 Weight 76.9 kg Exam: GENERAL: well-nourished and in no acute distress. Alert and oriented x3 HEAD: Atraumatic, normocephalic. EYES: Pupils equal round and reactive to light, extraocular movements intact, sclera anicteric, conjunctiva are normal. ENT: TMs normal, nares patent, oropharynx clear without exudates. Moist mucous membranes. No oral ulcerations or bleeding gums noted NECK: supple without lymphadenopathy. Trachea is central. No cervical or axillary lymphadenopathy noted. Carotids are 2+, JVD WNL LUNGS: Respiration seems nonlabored, bibasilar fine crackles and mild wheezing noted. CHEST: Palpation of the chest wall shows no significant chest wall tenderness. No other significant abnormalities noted. HEART: [place] [employer], No PSH, 3/6 ANY aortic area, 1/6 lam systolic murmur mitral area , no rubs, no gallops. ABDOMEN: Soft, no significant tenderness appreciated, normoactive bowel sounds. No guarding, no rebound. No rigidity noted . No masses appreciated. EXTREMITIES: Pedal pulses are 1-2+, no calf tenderness noted. No clubbing or cyanosis.1+ pedal edema noted NEUROLOGICAL: Focused neurological exam showed no significant neurologic deficit. Normal speech, no focal weakness appreciated. PSYCH: Normal mood, normal affect. Judgment and insight within normal limits. SKIN: No significant ecchymosis, rash, ulcerations or signs of pruritus noted. MUSCULOSKELETAL EXAM: No significant joint swelling noted. Results Laboratory Results: 06/23/17 07:23 06/23/17 07:23 Sodium 139.8 Potassium 3.6 Chloride 104 Carbon Dioxide 28 Anion Gap 8 BUN 19 Creatinine 1.20 Est GFR ( Amer) > 60 Est GFR (Non-Af Amer) 57 L Glucose 91 Calcium 8.7 06/22/17 06/22/17 06/23/17 14:05 19:34 01:24 Troponin I 0.689 1.070 1.160 NT-Pro-B Natriuret Pep 06/23/17 06/23/17 07:23 07:23 Troponin I 1.230 NT-Pro-B Natriuret Pep 53520 H Impressions: Chest X-Ray 06/22/17 10:02 IMPRESSION: Pulmonary edema versus pneumonia. Head CT 06/22/17 10:16 IMPRESSION: 1. No evidence of acute event. 2. Atrophy and minimal chronic small vessel ischemic disease. EVIDENCE OF ACUTE STROKE: NO. Assessment & Plan - Diagnosis (1) Elevated troponin Is this a current diagnosis for this admission?: Yes (2) Pulmonary edema Qualifiers: Chronicity: acute Qualified Code(s): J81.0 - Acute pulmonary edema Is this a current diagnosis for this admission?: Yes (3) AV block, 2nd degree Is this a current diagnosis for this admission?: Yes (4) Aortic stenosis Qualifiers: Cardiac valve disease etiology: etiology unspecified Qualified Code(s): I35.0 - Nonrheumatic aortic (valve) stenosis Is this a current diagnosis for this admission?: Yes (5) CHF (congestive heart failure) Is this a current diagnosis for this admission?: Yes (6) NSTEMI (non-ST elevated myocardial infarction) Is this a current diagnosis for this admission?: Yes (7) COPD (chronic obstructive pulmonary disease) Qualifiers: COPD type: unspecified COPD Qualified Code(s): J44.9 - Chronic obstructive pulmonary disease, unspecified Is this a current diagnosis for this admission?: Yes (8) Dyspnea Qualifiers: Dyspnea type: unspecified Qualified Code(s): R06.00 - Dyspnea, unspecified Is this a current diagnosis for this admission?: Yes - Notes Notes: Added Ranexa 500 mg p.o. twice daily. Added Plavix 75 mg p.o. daily, increased Lipitor to 40 p.o. nightly. Non-STEMI: Patient noted to have non-STEMI based on history of chest pain and positive troponin I elevation. Patient also in congestive heart failure brought on by severe aortic stenosis in setting of volume overload. Cannot rule out ischemia induced CHF. CHF: Agree with diuretic therapy. 2D echo shows low normal LVEF and severe aortic stenosis. AV block: Currently heart rate satisfactory. May consider discontinuing timolol eyedrop if significant bradycardia develops. Coronary artery disease: Patient currently not having chest pain. However elderly can have silent ischemia. COPD: Currently stable. Dyspnea: Multifactorial, CHF related, could be ischemic or violent could be COPD. Aortic stenosis: Severe patient declines even percutaneous coronary intervention. Troponin I elevation: Related to non-STEMI, possibly CHF. Treatment options somewhat limited in this elderly patient. Again discussed percutaneous intervention for aortic valve stenosis but patient declines. Patient daughter in the room. Patient has similar presentation on an earlier admission. At that time he was advised tertiary care transfer for both aortic valve replacement and pacemaker placement. He was informed that aortic valve replacement can be performed transcutaneously. Patient however declined to pursue any of these options. He continues to decline this option at this point. However if he changes his mind , consider transfer to tertiary care for further care. At this point, continue with diuretics and medical management of his underlying coronary artery disease , aortic stenosis. Overall prognosis is poor. - Time Time with patient: Greater than 35 minutes - CODE STATUS : was discussed, patient remains DO NOT RESUSCITATE. Surrogate decision-maker unchanged. Multiple medical problems were addressed. More than 50% of the time spent coordinating care, discussing management plans with involved caregivers. Management plans discussed with involved personnels. Medical decision making was of moderate to high complexity, patient's has multiple comorbidities. Medications reviewed and adjusted accordingly: Yes
--- NOTE | 2017-06-23 14:01 | PDOC PROGRESS REPORT ---
Subjective Progress Note for:: 06/23/17 Subjective:: The patient is an 87-year-old male with past medical history of COPD, severe aortic stenosis, hypertension, diastolic heart failure, and second-degree AV block who was admitted on 06/21/17 for non-STEMI, CHF exacerbation, and pulmonary edema. The patient is seen on morning rounds. He is found resting in bed comfortably on supplemental oxygen via nasal cannula at 2 lpm. He denies further episodes of chest pain and palpitations. He reports that the edema to his BLE has resolved. He also reports that his dyspnea has improved and that he has been ambulatory to the restroom without difficulty; though with supplemental oxygen on. He does continue to have copious amounts of thin, clear, sputum production. The patient again confirms that he does not wish to have aggressive medical management or heroic measures. He is agreeable to meeting with Ms. Ean NP, to discuss palliative care and hospice services. Reason For Visit: HEART FAILURE Physical Exam Vital Signs: Temp Pulse Resp BP Pulse Ox 97.9 F 103 H 19 120/40 L 98 06/23/17 12:31 06/23/17 12:31 06/23/17 12:31 06/23/17 12:31 06/23/17 12:31 Intake & Output 06/22/17 06/23/17 06/24/17 06:59 06:59 06:59 Intake Total 222 Output Total 2900 Balance -2678 Weight 76.9 kg General appearance: PRESENT: no acute distress, well-developed, well-nourished Head exam: PRESENT: atraumatic, normocephalic Eye exam: PRESENT: conjunctiva pink, EOMI, PERRLA. ABSENT: scleral icterus Ear exam: PRESENT: normal external ear exam Mouth exam: PRESENT: moist, tongue midline Neck exam: ABSENT: carotid bruit, JVD, lymphadenopathy, thyromegaly Respiratory exam: PRESENT: crackles - fine, bilateral, symmetrical, unlabored, other - supplemental oxygen via NC. ABSENT: rales, rhonchi, wheezes Cardiovascular exam: PRESENT: RRR, +S1, +S2, systolic murmur. ABSENT: diastolic murmur, rubs Pulses: PRESENT: normal dorsalis pedis pul Vascular exam: PRESENT: normal capillary refill GI/Abdominal exam: PRESENT: normal bowel sounds, soft. ABSENT: distended, guarding, mass, organolmegaly, rebound, tenderness Rectal exam: PRESENT: deferred Extremities exam: PRESENT: full ROM, pedal edema - trace BLE. ABSENT: calf tenderness, clubbing Neurological exam: PRESENT: alert, awake, oriented to person, oriented to place , oriented to time, oriented to situation, CN II-XII grossly intact. ABSENT: motor sensory deficit Psychiatric exam: PRESENT: appropriate affect, normal mood. ABSENT: homicidal ideation, suicidal ideation Skin exam: PRESENT: dry, intact, warm. ABSENT: cyanosis, rash Results Laboratory Results: 06/23/17 07:23 06/23/17 07:23 Sodium 139.8 Potassium 3.6 Chloride 104 Carbon Dioxide 28 Anion Gap 8 BUN 19 Creatinine 1.20 Est GFR ( Amer) > 60 Est GFR (Non-Af Amer) 57 L Glucose 91 Calcium 8.7 06/22/17 06/22/17 06/23/17 14:05 19:34 01:24 Troponin I 0.689 1.070 1.160 NT-Pro-B Natriuret Pep 06/23/17 06/23/17 07:23 07:23 Troponin I 1.230 NT-Pro-B Natriuret Pep 46015 H Impressions: Chest X-Ray 06/22/17 10:02 IMPRESSION: Pulmonary edema versus pneumonia. Head CT 06/22/17 10:16 IMPRESSION: 1. No evidence of acute event. 2. Atrophy and minimal chronic small vessel ischemic disease. EVIDENCE OF ACUTE STROKE: NO. Assessment & Plan - Diagnosis (1) CHF (congestive heart failure) Is this a current diagnosis for this admission?: Yes Plan: Acute on chronic diastolic congestive heart failure in the setting of severe aortic stenosis and Non-STEMI. Chest x-ray reveals pulmonary edema. ProBNP [place] [address] Echocardiogram completed. He is admitted to the medical floor on continuous cardiac telemetry. Will continue IV furosemide; pt has good urine output. Will continue the patient's home medications. Cardiology has been consulted; appreciate their evaluation and recommendations. (2) NSTEMI (non-ST elevated myocardial infarction) Is this a current diagnosis for this admission?: Yes Plan: The patient presents with a complaint of angina in the setting of acute on chronic CHF and severe aortic stenosis. His EKG reveals a sinus rhythm with a right bundle branch block. No evidence of ST segment elevation or depression. Tropinin elevated to 1.230. Currently on full dose Lovenox; will plan on transitioning to Eliquis at time of discharge. Continue daily ASA and Atorvastatin. Cardiology has been consulted; appreciate their evaluation and recommendations. Cardiology has initiated Plavix and Ranexa. (3) Pulmonary edema Qualifiers: Chronicity: acute Qualified Code(s): J81.0 - Acute pulmonary edema Is this a current diagnosis for this admission?: Yes Plan: Secondary to CHF exacerbation. The patient will receive IV diuresis. He is provided BiPAP nightly and the prn; he is to wear for Bipap for at least 4 hours during the day. Supplemental oxygen as needed to maintain oxygen saturations greater than 88%. (4) ARF (acute renal failure) Qualifiers: Acute renal failure type: unspecified Qualified Code(s): N17.9 - Acute kidney failure, unspecified Plan: Resolved; secondary to hypoperfusion in the setting of an acute CHF exacerbation. Will optimize cardiac function as above. Will avoid nephrotoxic medications. Will monitor with daily chemestry. (5) AV block, 2nd degree Is this a current diagnosis for this admission?: Yes Plan: The patient is on continuous cardiac telemetry. Cardiology has been consulted; appreciate their evaluation and recommendations. (6) Aortic stenosis Qualifiers: Cardiac valve disease etiology: etiology unspecified Qualified Code(s): I35.0 - Nonrheumatic aortic (valve) stenosis Is this a current diagnosis for this admission?: Yes Plan: Unfortunately, the patient has severe aortic stenosis and has, on multiple occasions, been recommended to have valve repair. The patient states that he is not interested in surgical interventions. He is currently receiving IV furosemide for an acute CHF exacerbation with evidence of fluid volume overload. Monitor closely for hypotension. Cardiology has been consulted. I did introduce the concept of hospice to the patient. He is agreeable to meeting with the palliative care/hospice team. Does confirm that he is a DNR/ DNI, however, does ask me to be "aggressive with my medications to get me out of this." A review of the patient's MOST form does indicate that the patient has requested to be comfort care only in the past, however, both he and his daughter request medical management at this time. Will ask palliative care to meet with the patient and family and clarify goals of care. (7) Elevated troponin Is this a current diagnosis for this admission?: Yes Plan: Secondary to Non-STEMI and CHF exacerbation. Plan as above. (8) Hematuria Qualifiers: Hematuria type: gross Qualified Code(s): R31.0 - Gross hematuria Is this a current diagnosis for this admission?: Yes Plan: Secondary to fowler trauma. Will monitor. - Time Time Spent with patient: 35 or more minutes Medications reviewed and adjusted accordingly: Yes
[2017-06-23] MEDS: TAMSULOSIN HCL 0.4 MG CAP.SR.24H PO SCH (17:13)
[2017-06-23] MEDS ORDERED: TIMOLOL MALEATE 0.5% OPH SOLN 5 ML ONE (21:52)
[2017-06-23] MEDS ORDERED: ATORVASTATIN CALCIUM 20 MG TABLET PO SCH (22:00)
[2017-06-23] MEDS: ATORVASTATIN CALCIUM 40 MG TABLET PO SCH (22:23)
[2017-06-23] MEDS: TIMOLOL MALEATE 0.5% OPH SOLN 5 ML OU SCH (22:24)
[2017-06-23] MEDS: RANOLAZINE 500 MG TAB.SR.12H PO SCH (22:24)
[2017-06-24 06:03] LABS: HEMATOCRIT 44.2 % (37.9-51.0); HEMOGLOBIN 14.8 g/dL (13.5-17.0); MEAN CORPUSCULAR HEMOGLOBIN 31.2 pg (27.0-33.4); MEAN CORPUSCULAR HGB CONC 33.5 g/dL (32.0-36.0); MEAN CORPUSCULAR VOLUME 93 fl (80-97); PLATELET COUNT 236 10^3/uL (150-450); RED BLOOD COUNT 4.76 10^6/uL (4.35-5.55); RED CELL DISTRIBUTION WIDTH 14.9 % (11.5-14.0); WHITE BLOOD COUNT 11.8 10^3/uL (4.0-10.5)
[2017-06-24 06:35] LABS: ANION GAP 10 (5-19); BLOOD UREA NITROGEN 20 mg/dL (7-20); CALCIUM 8.5 mg/dL (8.4-10.2); CARBON DIOXIDE 26 mmol/L (22-30); CHLORIDE 102 mmol/L (98-107); GLUCOSE 86 mg/dL (75-110); POTASSIUM 3.4 mmol/L (3.6-5.0); SODIUM 138.3 mmol/L (137-145)
--- NOTE | 2017-06-24 09:32 | EKG REPORT ---
SEVERITY:- ABNORMAL ECG - SINUS RHYTHM BLOCKED APC FIRST DEGREE AV BLOCK PROBABLE LEFT ATRIAL ABNORMALITY RIGHT BUNDLE BRANCH BLOCK : Confirmed by: Rojelio Card 24-Jun-2017 09:31:29
[2017-06-24] MEDS: POTASSIUM CHLORIDE 20 MEQ/15 ML UDCUP PO SCH ×2 (09:59→21:21)
[2017-06-24] MEDS: RANOLAZINE 500 MG TAB.SR.12H PO SCH ×2 (09:59→21:20)
[2017-06-24] MEDS: DOCUSATE SODIUM 100 MG CAPSULE PO SCH (09:59)
[2017-06-24] MEDS ORDERED: CLOPIDOGREL BISULFATE 300 MG TABLET PO SCH (10:00)
[2017-06-24] MEDS: SPIRONOLACTONE 25 MG TABLET PO SCH ×2 (10:00→21:20)
[2017-06-24] MEDS: FAMOTIDINE 20 MG TABLET PO SCH ×2 (10:00→21:21)
[2017-06-24] MEDS: CLOPIDOGREL BISULFATE 75 MG TABLET PO SCH (10:00)
[2017-06-24] MEDS: MULTIVITAMIN TABLET PO SCH (10:00)
[2017-06-24] MEDS: ASPIRIN 81 MG TABLET, ENT COATED PO SCH (10:00)
[2017-06-24] MEDS: FUROSEMIDE INJ/PF 20 MG/2 ML SDV IV SCH (10:00)
[2017-06-24] MEDS: ENOXAPARIN SODIUM INJ 80 MG/0.8 ML DISP.SYRIN SUBCUT SCH (10:05)
--- NOTE | 2017-06-24 15:19 | PDOC PROGRESS REPORT ---
Subjective Progress Note for:: 06/24/17 Subjective:: The patient is an 87-year-old male with past medical history of COPD, severe aortic stenosis, hypertension, diastolic heart failure, and second-degree AV block who was admitted on 06/21/17 for non-STEMI, CHF exacerbation, and pulmonary edema. The patient is seen on morning rounds. He is found resting in bed comfortably on room air. He states that he has been on room air for approximately 15 minutes now and is very happy to report that he is not experiencing any dyspnea or orthopnea. He was also up to the restroom earlier today while on supplemental oxygen without dyspnea. He denies further episodes of chest pain. He reports that his cough has lessened, although he continues to produce clear thin sputum. He does ask about aortic valve repair today; specifically whether or not this surgery would improve his quantity or quality of life. He remains hesitant about the procedure but does agree to discuss with his family today whether to request a cardiovascular surgeon consult to learn more specifics w/ regard to recovery and risks/benefits. Reason For Visit: HEART FAILURE Physical Exam Vital Signs: Temp Pulse Resp BP Pulse Ox 97.7 F 81 18 110/56 L 98 06/24/17 12:00 06/24/17 14:00 06/24/17 12:00 06/24/17 12:00 06/24/17 12:00 Intake & Output 06/23/17 06/24/17 06/25/17 06:59 06:59 06:59 Intake Total 222 1320 Output Total 2900 300 Balance -2678 1020 Weight 76.9 kg 76.9 kg General appearance: PRESENT: no acute distress, cooperative, well-developed, well-nourished, other - Overweight Head exam: PRESENT: atraumatic, normocephalic Eye exam: PRESENT: conjunctiva pink, EOMI, PERRLA. ABSENT: scleral icterus Ear exam: PRESENT: normal external ear exam Mouth exam: PRESENT: moist, tongue midline Neck exam: ABSENT: carotid bruit, JVD, lymphadenopathy, thyromegaly Respiratory exam: PRESENT: crackles - Fine crackles; continued improvement, symmetrical, unlabored. ABSENT: rales, rhonchi, wheezes Cardiovascular exam: PRESENT: RRR, +S1, +S2, systolic murmur. ABSENT: diastolic murmur, rubs Pulses: PRESENT: normal dorsalis pedis pul Vascular exam: PRESENT: normal capillary refill GI/Abdominal exam: PRESENT: normal bowel sounds, soft. ABSENT: distended, guarding, mass, organolmegaly, rebound, tenderness Rectal exam: PRESENT: deferred Extremities exam: PRESENT: full ROM. ABSENT: calf tenderness, clubbing, pedal edema Neurological exam: PRESENT: alert, awake, oriented to person, oriented to place , oriented to time, oriented to situation, CN II-XII grossly intact. ABSENT: motor sensory deficit Psychiatric exam: PRESENT: appropriate affect, normal mood. ABSENT: homicidal ideation, suicidal ideation Skin exam: PRESENT: dry, intact, warm. ABSENT: cyanosis, rash Results Laboratory Results: 06/24/17 04:24 06/24/17 04:24 06/24/17 06/24/17 04:24 04:24 WBC 11.8 H RBC 4.76 Hgb 14.8 Hct 44.2 MCV 93 MCH 31.2 MCHC 33.5 RDW 14.9 H Plt Count 236 Sodium 138.3 Potassium 3.4 L Chloride 102 Carbon Dioxide 26 Anion Gap 10 BUN 20 Creatinine 1.08 Est GFR ( Amer) > 60 Est GFR (Non-Af Amer) > 60 Glucose 86 Calcium 8.5 06/22/17 06/22/17 06/23/17 14:05 19:34 01:24 Troponin I 0.689 1.070 1.160 NT-Pro-B Natriuret Pep 06/23/17 06/23/17 06/23/17 07:23 07:23 14:55 Troponin I 1.230 1.080 NT-Pro-B Natriuret Pep 90922 H 06/23/17 06/23/17 06/24/17 22:05 23:15 09:03 Troponin I Cancelled 1.110 1.040 NT-Pro-B Natriuret Pep Impressions: Chest X-Ray 06/22/17 10:02 IMPRESSION: Pulmonary edema versus pneumonia. Head CT 06/22/17 10:16 IMPRESSION: 1. No evidence of acute event. 2. Atrophy and minimal chronic small vessel ischemic disease. EVIDENCE OF ACUTE STROKE: NO. Assessment & Plan - Diagnosis (1) CHF (congestive heart failure) Is this a current diagnosis for this admission?: Yes Plan: Improved. Acute on chronic diastolic congestive heart failure in the setting of severe aortic stenosis and Non-STEMI. Chest x-ray reveals pulmonary edema. [place] [id number] Echocardiogram completed. He is admitted to the medical floor on continuous cardiac telemetry. Will continue IV furosemide; will decrease dose today. Will continue the patient's home medications. Cardiology has been consulted; appreciate their evaluation and recommendations. (2) NSTEMI (non-ST elevated myocardial infarction) Is this a current diagnosis for this admission?: Yes Plan: The patient presents with a complaint of angina in the setting of acute on chronic CHF and severe aortic stenosis. His EKG reveals a sinus rhythm with a right bundle branch block. No evidence of ST segment elevation or depression. Tropinin elevated to 1.230. Lovenox discontinued; correction from previous note: pt will not require technician terminal and repeater anticoagulation at discharge Continue daily ASA and Atorvastatin. Cardiology has been consulted; appreciate their evaluation and recommendations. Cardiology has initiated Plavix and Ranexa. (3) Pulmonary edema Qualifiers: Chronicity: acute Qualified Code(s): J81.0 - Acute pulmonary edema Is this a current diagnosis for this admission?: Yes Plan: Secondary to CHF exacerbation. The patient will receive IV diuresis. He is provided BiPAP nightly and the prn; he is to wear for Bipap for at least 4 hours during the day. Supplemental oxygen as needed to maintain oxygen saturations greater than 88%. (4) ARF (acute renal failure) Qualifiers: Acute renal failure type: unspecified Qualified Code(s): N17.9 - Acute kidney failure, unspecified Plan: Resolved; secondary to hypoperfusion in the setting of an acute CHF exacerbation. Will optimize cardiac function as above. Will avoid nephrotoxic medications. Will monitor with daily chemestry. (5) AV block, 2nd degree Is this a current diagnosis for this admission?: Yes Plan: The patient is on continuous cardiac telemetry. Cardiology has been consulted; appreciate their evaluation and recommendations. (6) Aortic stenosis Qualifiers: Cardiac valve disease etiology: etiology unspecified Qualified Code(s): I35.0 - Nonrheumatic aortic (valve) stenosis Is this a current diagnosis for this admission?: Yes Plan: Unfortunately, the patient has severe aortic stenosis and has, on multiple occasions, been recommended to have valve repair. The patient states that he is not interested in surgical interventions. He is currently receiving IV furosemide for an acute CHF exacerbation with evidence of fluid volume overload. Monitor closely for hypotension. Cardiology has been consulted. I did introduce the concept of hospice to the patient. He is agreeable to meeting with the palliative care/hospice team. Does confirm that he is a DNR/ DNI, however, does ask me to be "aggressive with my medications to get me out of this." A review of the patient's MOST form does indicate that the patient has requested to be comfort care only in the past, however, both he and his daughter request medical management at this time. Will ask palliative care to meet with the patient and family and clarify goals of care. (7) Elevated troponin Is this a current diagnosis for this admission?: Yes Plan: Trendnig down; Secondary to Non-STEMI and CHF exacerbation. Plan as above. (8) Hematuria Qualifiers: Hematuria type: gross Qualified Code(s): R31.0 - Gross hematuria Is this a current diagnosis for this admission?: Yes Plan: Secondary to fowler trauma. Lovenox discontinued. Will monitor. - Time Time Spent with patient: 25-34 minutes Anticipated discharge: Home Within: within 24 hours
--- NOTE | 2017-06-24 17:46 | PDOC PROGRESS REPORT ---
Subjective Progress Note for:: 06/24/17 Subjective:: Patient seems to be doing better with gradual improvement. Pt is denying any chest arm or neck discomfort. Patient denying any PND, orthopnea. Patient denied any sustained palpitations, dizziness, syncope, near syncope. Patient denying any fever chills. Patient denying any other significant discomfort. Today he claims that he is not short of breath even without oxygen. Patient is maintaining sinus rhythm. Review of systems: Rest review of systems negative. Medications: Medications have been reviewed. Reason For Visit: HEART FAILURE Physical Exam Vital Signs: Temp Pulse Resp BP Pulse Ox 97.5 F 88 22 H 111/58 L 99 06/24/17 16:00 06/24/17 16:00 06/24/17 16:00 06/24/17 16:00 06/24/17 16:00 Intake & Output 06/23/17 06/24/17 06/25/17 06:59 06:59 06:59 Intake Total 222 1320 Output Total 2900 300 Balance -2678 1020 Weight 76.9 kg 76.9 kg Exam: GENERAL: well-nourished and in no acute distress. Alert and oriented x3 HEAD: Atraumatic, normocephalic. EYES: Pupils equal round and reactive to light, extraocular movements intact, sclera anicteric, conjunctiva are normal. ENT: TMs normal, nares patent, oropharynx clear without exudates. Moist mucous membranes. No oral ulcerations or bleeding gums noted NECK: supple without lymphadenopathy. Trachea is central. No cervical or axillary lymphadenopathy noted. Carotids are 2+, JVD WNL LUNGS: Respiration seems nonlabored, no significant accessory muscle action noted. Bibasilar fine crackles and few scattered wheezing noted. No significant dullness noted on percussion. CHEST: Palpation of the chest wall shows no significant chest wall tenderness. No other significant abnormalities noted. 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 ABDOMEN: Soft, no significant tenderness appreciated, normoactive bowel sounds. No guarding, no rebound. No rigidity noted . No masses appreciated. EXTREMITIES: Pedal pulses are 1-2+, no calf tenderness noted. No clubbing or cyanosis.trace pedal edema noted NEUROLOGICAL: Focused neurological exam showed no significant neurologic deficit. Normal speech, no focal weakness appreciated. PSYCH: Normal mood, normal affect. Judgment and insight within normal limits. SKIN: No significant ecchymosis, rash, ulcerations or signs of pruritus noted. MUSCULOSKELETAL EXAM: No significant joint swelling noted. Results Laboratory Results: 06/24/17 04:24 06/24/17 04:24 06/24/17 06/24/17 04:24 04:24 WBC 11.8 H RBC 4.76 Hgb 14.8 Hct 44.2 MCV 93 MCH 31.2 MCHC 33.5 RDW 14.9 H Plt Count 236 Sodium 138.3 Potassium 3.4 L Chloride 102 Carbon Dioxide 26 Anion Gap 10 BUN 20 Creatinine 1.08 Est GFR ( Amer) > 60 Est GFR (Non-Af Amer) > 60 Glucose 86 Calcium 8.5 06/22/17 06/22/17 06/23/17 14:05 19:34 01:24 Troponin I 0.689 1.070 1.160 NT-Pro-B Natriuret Pep 06/23/17 06/23/17 06/23/17 07:23 07:23 14:55 Troponin I 1.230 1.080 NT-Pro-B Natriuret Pep 53758 H 06/23/17 06/23/17 06/24/17 22:05 23:15 09:03 Troponin I Cancelled 1.110 1.040 NT-Pro-B Natriuret Pep Impressions: Chest X-Ray 06/22/17 10:02 IMPRESSION: Pulmonary edema versus pneumonia. Head CT 06/22/17 10:16 IMPRESSION: 1. No evidence of acute event. 2. Atrophy and minimal chronic small vessel ischemic disease. EVIDENCE OF ACUTE STROKE: NO. Assessment & Plan - Diagnosis (1) Elevated troponin Is this a current diagnosis for this admission?: Yes (2) Pulmonary edema Qualifiers: Chronicity: acute Qualified Code(s): J81.0 - Acute pulmonary edema Is this a current diagnosis for this admission?: Yes (3) AV block, 2nd degree Is this a current diagnosis for this admission?: Yes (4) Aortic stenosis Qualifiers: Cardiac valve disease etiology: etiology unspecified Qualified Code(s): I35.0 - Nonrheumatic aortic (valve) stenosis Is this a current diagnosis for this admission?: Yes (5) CHF (congestive heart failure) Is this a current diagnosis for this admission?: Yes (6) NSTEMI (non-ST elevated myocardial infarction) Is this a current diagnosis for this admission?: Yes (7) COPD (chronic obstructive pulmonary disease) Qualifiers: COPD type: unspecified COPD Qualified Code(s): J44.9 - Chronic obstructive pulmonary disease, unspecified Is this a current diagnosis for this admission?: Yes (8) Dyspnea Qualifiers: Dyspnea type: unspecified Qualified Code(s): R06.00 - Dyspnea, unspecified Is this a current diagnosis for this admission?: Yes - Notes Notes: Added yesterday Ranexa 500 mg p.o. twice daily. Added Plavix 75 mg p.o. daily, increased Lipitor to 40 p.o. nightly. Currently seems stable on this medical regimen and other medications. Non-STEMI: Patient noted to have non-STEMI based on history of chest pain and positive troponin I elevation. Patient also in congestive heart failure brought on by severe aortic stenosis in setting of volume overload. Cannot rule out ischemia induced CHF. Do not feel patient is a candidate for a stress test in view of severe aortic stenosis. He has declined other invasive approach. CHF: Agree with diuretic therapy. 2D echo shows low normal LVEF and severe aortic stenosis. AV block: Currently heart rate satisfactory. May consider discontinuing timolol eyedrop if significant bradycardia develops. Coronary artery disease: Patient currently not having chest pain. However elderly can have silent ischemia. COPD: Currently stable. Dyspnea: Multifactorial, CHF related, could be ischemic or ischemia equivalent or could be COPD. Aortic stenosis: Severe, patient declines even percutaneous coronary intervention. This had been raised with the patient multiple times. He may be coming around but still has not made up his mind. Troponin I elevation: Related to non-STEMI, possibly CHF. Treatment options somewhat limited in this elderly patient. Again discussed percutaneous intervention for aortic valve stenosis but patient declines. Patient daughter in the room. Patient claims that he is going to try current medical regimen. Patient has similar presentation on an earlier admission. At that time he was advised tertiary care transfer for both aortic valve replacement and pacemaker placement. He was informed that aortic valve replacement can be performed transcutaneously. Patient however declined to pursue any of these options. He continues to decline this option at this point. However if he changes his mind , consider transfer to tertiary care for further care. At this point, continue with diuretics and medical management of his underlying coronary artery disease , aortic stenosis. Overall prognosis is poor. Agree with hospice consultation. - Time Time with patient: Greater than 35 minutes - CODE STATUS : was discussed, patient remains DO NOT RESUSCITATE. Surrogate decision-maker unchanged. Multiple medical problems were addressed. More than 50% of the time spent coordinating care, discussing management plans with involved caregivers. Management plans discussed with involved personnels. Medical decision making was of moderate to high complexity, patient's has multiple comorbidities. Medications reviewed and adjusted accordingly: Yes
[2017-06-24] MEDS: TAMSULOSIN HCL 0.4 MG CAP.SR.24H PO SCH (18:03)
[2017-06-24] MEDS: ERYTHROMYCIN 0.5% OPH OINTMENT 3.5 GM TUBE OU SCH ×2 (18:03→23:45)
[2017-06-24] MEDS: TIMOLOL MALEATE 0.5% OPH SOLN 5 ML OU SCH (21:21)
[2017-06-24] MEDS: ATORVASTATIN CALCIUM 40 MG TABLET PO SCH (21:21)
[2017-06-25] MEDS: ERYTHROMYCIN 0.5% OPH OINTMENT 3.5 GM TUBE OU SCH ×2 (05:37→11:49)
[2017-06-25 07:40] LABS: HEMATOCRIT 47.5 % (37.9-51.0); HEMOGLOBIN 16.2 g/dL (13.5-17.0); MEAN CORPUSCULAR HEMOGLOBIN 31.8 pg (27.0-33.4); MEAN CORPUSCULAR HGB CONC 34.1 g/dL (32.0-36.0); MEAN CORPUSCULAR VOLUME 93 fl (80-97); PLATELET COUNT 275 10^3/uL (150-450); RED BLOOD COUNT 5.09 10^6/uL (4.35-5.55); WHITE BLOOD COUNT 10.9 10^3/uL (4.0-10.5)
[2017-06-25 07:59] LABS: ANION GAP 7 (5-19); BLOOD UREA NITROGEN 21 mg/dL (7-20); CALCIUM 9.3 mg/dL (8.4-10.2); CARBON DIOXIDE 30 mmol/L (22-30); CHLORIDE 102 mmol/L (98-107); GLUCOSE 104 mg/dL (75-110); POTASSIUM 4.2 mmol/L (3.6-5.0); SODIUM 138.6 mmol/L (137-145)
[2017-06-25] MEDS ORDERED: FUROSEMIDE INJ/PF 20 MG/2 ML SDV IV SCH (08:00)
--- NOTE | 2017-06-25 08:48 | EKG REPORT ---
SEVERITY:- ABNORMAL ECG - SINUS RHYTHM MULTIPLE ATRIAL PREMATURE COMPLEXES MOBITZ I AV BLOCK RBBB AND LAFB : Confirmed on behalf of: Rojelio Card 25-Jun-2017 08:48:10
--- NOTE | 2017-06-25 11:29 | PDOC PROGRESS REPORT ---
Subjective Progress Note for:: 06/25/17 Subjective:: Patient seems to be doing better with gradual improvement. Pt is denying any chest arm or neck discomfort. Patient denying any PND, orthopnea. Patient denied any sustained palpitations, dizziness, syncope, near syncope. Patient denying any fever chills. Patient denying any other significant discomfort. Today he claims he walked in the hallway and that he is not short of breath even without oxygen. Patient is maintaining sinus rhythm. Review of systems: Rest review of systems negative. Medications: Medications have been reviewed. Reason For Visit: HEART FAILURE Physical Exam Vital Signs: Temp Pulse Resp BP Pulse Ox 97.6 F 88 18 108/58 L 96 06/25/17 07:15 06/25/17 07:15 06/25/17 07:15 06/25/17 07:15 06/25/17 07:15 Intake & Output 06/24/17 06/25/17 06/26/17 06:59 06:59 06:59 Intake Total 1320 1596 Output Total 300 350 Balance 1020 1246 Weight 76.9 kg 76.9 kg Exam: GENERAL: well-nourished and in no acute distress. Alert and oriented x3 HEAD: Atraumatic, normocephalic. EYES: Pupils equal round and reactive to light, extraocular movements intact, sclera anicteric, conjunctiva are normal. ENT: TMs normal, nares patent, oropharynx clear without exudates. Moist mucous membranes. No oral ulcerations or bleeding gums noted NECK: supple without lymphadenopathy. Trachea is central. No cervical or axillary lymphadenopathy noted. Carotids are 2+, JVD WNL LUNGS: Respiration seems nonlabored, no significant accessory muscle action noted. Bibasilar fine crackles at the extreme bases and few scattered wheezes rales or rhonchi noted. No significant dullness noted on percussion. CHEST: Palpation of the chest wall shows no significant chest wall tenderness. No other significant abnormalities noted. 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 ABDOMEN: Soft, no significant tenderness appreciated, normoactive bowel sounds. No guarding, no rebound. No rigidity noted . No masses appreciated. EXTREMITIES: Pedal pulses are 1-2+, no calf tenderness noted. No clubbing or cyanosis.trace to 1+ pedal edema noted NEUROLOGICAL: Focused neurological exam showed no significant neurologic deficit. Normal speech, no focal weakness appreciated. PSYCH: Normal mood, normal affect. Judgment and insight within normal limits. SKIN: No significant ecchymosis, rash, ulcerations or signs of pruritus noted. MUSCULOSKELETAL EXAM: No significant joint swelling noted. Results Laboratory Results: 06/25/17 07:27 06/25/17 07:27 06/25/17 06/25/17 07:27 07:27 WBC 10.9 H RBC 5.09 Hgb 16.2 Hct 47.5 MCV 93 MCH 31.8 MCHC 34.1 RDW 15.0 H Plt Count 275 Sodium 138.6 Potassium 4.2 Chloride 102 Carbon Dioxide 30 Anion Gap 7 BUN 21 H Creatinine 1.16 Est GFR ( Amer) > 60 Est GFR (Non-Af Amer) 59 L Glucose 104 Calcium 9.3 06/22/17 06/22/17 06/23/17 14:05 19:34 01:24 Troponin I 0.689 1.070 1.160 NT-Pro-B Natriuret Pep 06/23/17 06/23/17 06/23/17 07:23 07:23 14:55 Troponin I 1.230 1.080 NT-Pro-B Natriuret Pep 17513 H 06/23/17 06/23/17 06/24/17 22:05 23:15 09:03 Troponin I Cancelled 1.110 1.040 NT-Pro-B Natriuret Pep EKG Comments: Shows predominantly sinus rhythm with blocked APCs, occasional AV blocks but nothing sustained. Impressions: Chest X-Ray 06/22/17 10:02 IMPRESSION: Pulmonary edema versus pneumonia. Head CT 06/22/17 10:16 IMPRESSION: 1. No evidence of acute event. 2. Atrophy and minimal chronic small vessel ischemic disease. EVIDENCE OF ACUTE STROKE: NO. Assessment & Plan - Diagnosis (1) Elevated troponin Is this a current diagnosis for this admission?: Yes (2) Pulmonary edema Qualifiers: Chronicity: acute Qualified Code(s): J81.0 - Acute pulmonary edema Is this a current diagnosis for this admission?: Yes (3) AV block, 2nd degree Is this a current diagnosis for this admission?: Yes (4) Aortic stenosis Qualifiers: Cardiac valve disease etiology: etiology unspecified Qualified Code(s): I35.0 - Nonrheumatic aortic (valve) stenosis Is this a current diagnosis for this admission?: Yes (5) CHF (congestive heart failure) Is this a current diagnosis for this admission?: Yes (6) NSTEMI (non-ST elevated myocardial infarction) Is this a current diagnosis for this admission?: Yes (7) COPD (chronic obstructive pulmonary disease) Qualifiers: COPD type: unspecified COPD Qualified Code(s): J44.9 - Chronic obstructive pulmonary disease, unspecified Is this a current diagnosis for this admission?: Yes (8) Dyspnea Qualifiers: Dyspnea type: unspecified Qualified Code(s): R06.00 - Dyspnea, unspecified Is this a current diagnosis for this admission?: Yes - Notes Notes: Patient has done well on medical management. Patient tells me that he wants to go home and likely to be discharged today. Recommend discharge on current medication. Patient should follow-up with his primary care physician. I will be happy to see him in the office if he wishes to follow-up with me. However patient may benefit from a appointment made for the patient to be seen by a tertiary care electrician aircraft as he is going to need tertiary care related procedures. Non-STEMI: Patient noted to have non-STEMI based on history of chest pain and positive troponin I elevation. Patient also in congestive heart failure brought on by severe aortic stenosis in setting of volume overload. Cannot rule out ischemia induced CHF. Do not feel patient is a candidate for a stress test in view of severe aortic stenosis. He has declined other invasive approach. Patient has done well on medical management. CHF: Agree with maintenance diuretic therapy. 2D echo shows low normal LVEF and severe aortic stenosis. AV block: Currently heart rate satisfactory. May consider discontinuing timolol eyedrop if significant bradycardia develops. So far on several days of monitoring no significant bradycardia noted Coronary artery disease: Patient currently not having chest pain. However elderly can have silent ischemia. Patient noted to be stable and seems to be on a good regimen. COPD: Currently stable. This is a significant problem however patient is stable Dyspnea: Multifactorial, CHF related, could be ischemic or ischemia equivalent or could be COPD. Currently is stable, maintaining oxygenation of oxygen supplementation. Aortic stenosis: Severe, patient declines even percutaneous coronary intervention. This had been raised with the patient multiple times. He may be coming around but still has not made up his mind. Will be happy to refer him to tertiary care for this procedure as an outpatient. Troponin I elevation: Related to non-STEMI, possibly CHF. Treatment options somewhat limited in this elderly patient. Currently medical management is the only option as per patient's wishes. Again discussed percutaneous intervention for aortic valve stenosis but patient declines. Patient daughter in the room. Patient claims that he is going to try current medical regimen. Patient has similar presentation on an earlier admission. At that time he was advised tertiary care transfer for both aortic valve replacement and pacemaker placement. He was informed that aortic valve replacement can be performed transcutaneously. Patient however declined to pursue any of these options. He continues to decline this option at this point. However if he changes his mind , consider transfer to tertiary care for further care. At this point, continue with diuretics and medical management of his underlying coronary artery disease , aortic stenosis. Overall prognosis is poor. Agree with hospice consultation. - Time Time with patient: Greater than 35 minutes - CODE STATUS : was discussed, patient remains DO NOT RESUSCITATE. Surrogate decision-maker unchanged. Multiple medical problems were addressed. More than 50% of the time spent coordinating care, discussing management plans with involved caregivers. Management plans discussed with involved personnels. Medical decision making was of moderate to high complexity, patient's has multiple comorbidities. Medications reviewed and adjusted accordingly: Yes
[2017-06-25] MEDS ORDERED: MAG HYDROX/AL HYDROX/SIMETH SUSP 30 ML UDCUP PO PRN (11:30)
[2017-06-25] MEDS ORDERED: ONDANSETRON HCL INJ/PF 4 MG/2 ML SDV IV PRN (11:30)
[2017-06-25] MEDS: DOCUSATE SODIUM 100 MG CAPSULE PO SCH (11:41)
[2017-06-25] MEDS: CLOPIDOGREL BISULFATE 75 MG TABLET PO SCH (11:41)
[2017-06-25] MEDS: FAMOTIDINE 20 MG TABLET PO SCH (11:42)
[2017-06-25] MEDS: SPIRONOLACTONE 25 MG TABLET PO SCH (11:43)
[2017-06-25] MEDS: MULTIVITAMIN TABLET PO SCH (11:43)
[2017-06-25] MEDS ORDERED: FUROSEMIDE 40 MG TABLET PO ONE (13:30)
[2017-06-25 17:04] VITALS: BP 109/61
--- NOTE | 2017-06-25 17:47 | PDOC DISCHARGE SUMMARY ---
General - Admit/Disc Date/PCP Admission Date/Primary Care Provider: 06/22/17 13:10 KARY LOZOYA, DO Discharge Date: 06/25/17 - Discharge Diagnosis (1) CHF (congestive heart failure) Is this a current diagnosis for this admission?: Yes (2) NSTEMI (non-ST elevated myocardial infarction) Is this a current diagnosis for this admission?: Yes (3) Pulmonary edema Is this a current diagnosis for this admission?: Yes (5) AV block, 2nd degree Is this a current diagnosis for this admission?: Yes (6) Aortic stenosis Is this a current diagnosis for this admission?: Yes (7) Elevated troponin Is this a current diagnosis for this admission?: Yes (8) Hematuria Is this a current diagnosis for this admission?: Yes - Additional Information Resuscitation Status: Do Not Resuscitate Discharge Diet: Cardiac Discharge Activity: Activity As Tolerated, Balance Activity w/Rest, Energy Conservation, Weigh Daily Prescriptions: Atorvastatin Calcium [Lipitor 40 mg Tablet] 40 mg PO QHS #30 tablet Clopidogrel Bisulfate [Plavix 75 mg Tablet] 75 mg PO DAILY #30 tablet Erythromycin Base [E-Mycin 0.5% Oph Ointment 3.5 gm] 1 applic OU Q6 #1 tube Famotidine [Pepcid 20 mg Tablet] 20 mg PO Q12 #60 tablet Ranolazine [Ranexa 500 mg Tab.sr] 500 mg PO Q12 #60 tab.sr.12h Home Medications: Aspirin [Aspirin 81 mg Chewable Tablet] 81 mg PO DAILY 06/22/17 Furosemide [Lasix 40 mg Tablet] 40 mg PO QAM 06/22/17 Levalbuterol HCl [Xopenex Neb 0.63 mg/3 ml Ampul] 0.63 mg NEB RTQ8HP PRN Multivitamin [Tab-A-Jadiel] 1 tab PO DAILY 06/22/17 Spironolactone [Aldactone 25 mg Tablet] 25 mg PO Q12 06/22/17 Tamsulosin HCl [Flomax 0.4 mg Cap.sr] 0.4 mg PO PCSUPPER 06/22/17 Timolol Maleate [Timoptic 0.5% Oph Soln 5 ml] 1 drop OU QHS 06/22/17 Acetaminophen [Tylenol 325 mg Tablet] 650 mg PO Q4HP PRN tablet 06/25/17 Aspirin [Ecotrin 81 mg EC Tablet] 81 mg PO DAILY tabec 06/25/17 Atorvastatin Calcium [Lipitor 40 mg Tablet] 40 mg PO QHS #30 tablet 06/25/17 Clopidogrel Bisulfate [Plavix 75 mg Tablet] 75 mg PO DAILY #30 tablet 06/25/17 Erythromycin Base [E-Mycin 0.5% Oph Ointment 3.5 gm] 1 applic OU Q6 #1 tube Famotidine [Pepcid 20 mg Tablet] 20 mg PO Q12 #60 tablet 06/25/17 Ranolazine [Ranexa 500 mg Tab.sr] 500 mg PO Q12 #60 tab.sr.12h 06/25/17 History of Present Illness History of Present Illness: ZARIA ALMAGUER is a 87 year old male with a past medical history of COPD, severe aortic stenosis, hypertension, diastolic CHF, and second-degree AV block who presented to the emergency department today with a complaint of dizziness of sudden onset this morning while in the shower. The patient states that he ran out of his spinal lactone approximately 4 days ago. He noticed edema to the bilateral lower extremities beginning the following day that have progressively worsened. He states that he began to parenting dyspnea while at rest last night. Upon further questioning, the patient does endorse chest pressure with activity. He states that he first experienced chest pressure while ambulating yesterday afternoon. He states that the pain was relieved with rest but does predictably recur with walking short distances. Evaluation in the emergency department reveals mildly elevated creatinine to 1.34, proBNP greater than 11,000, chest x-ray suggestive of pulmonary edema versus pneumonia, and an elevated troponin of 0.507. He is referred to the hospitalist service for admission. Hospital Course Hospital Course: The patient was admitted with a complaint of dyspnea while at rest, productive cough, and bilateral leg edema 4 days after running out of his spironolactone. He additionally endorsed sudden onset of chest pain while outside in the cold air approximately 2 weeks ago that was associated with bilateral arm heaviness. Since that time, the patient has noted that he has angina after walking approximately 20 feet. The patient's troponin was elevated to 1.230 at its peak and has since been trending down. EKGs revealed a sinus rhythm with a first-degree AV block, probable left atrial abnormality, and right bundle branch block without ST segment elevation or depression. The patient elected to have conservative medical management and so was placed on full dose Lovenox, aspirin, and Plavix. His atorvastatin was increased to 40 mg. Cardiology was consulted and additionally placed the patient on Ranexa. The patient received IV furosemide with excellent diuresis and resolution of his dyspnea, orthopnea, and productive cough. The patient is known to have severe aortic stenosis. The patient again declined to be transferred to a tertiary care center to discuss the risks and benefits of a valve replacement. The patient did have the opportunity to meet with the palliative care team and is strongly considering palliative care or hospice services. He will discuss these with his primary care provider as follow-up next week. At the time of discharge, the patient is ambulatory on room air without angina. He is maintaining his oxygen saturations and denies dyspnea and orthopnea. His bilateral leg edema has resolved. He is discharged to home in stable condition with prescriptions for atorvastatin 40 mg nightly, Plavix 75 mg daily, erythromycin ointment for conjunctivitis, Pepcid 20 mg twice daily with meals, and Ranexa 500 mg every 12 hours. He is recommended to follow-up with his primary care provider within 1- 2 weeks and his phone technician as scheduled. Physical Exam Vital Signs: Temp Pulse Resp BP Pulse Ox 97.8 F 89 18 109/61 97 06/25/17 15:42 06/25/17 15:42 06/25/17 15:42 06/25/17 15:42 06/25/17 15:42 Intake & Output 06/24/17 06/25/17 06/26/17 06:59 06:59 06:59 Intake Total 1320 1596 438 Output Total 300 350 Balance 1020 1246 438 Weight 76.9 kg 76.9 kg Results Laboratory Results: 06/25/17 07:27 06/25/17 07:27 06/25/17 06/25/17 07:27 07:27 WBC 10.9 H RBC 5.09 Hgb 16.2 Hct 47.5 MCV 93 MCH 31.8 MCHC 34.1 RDW 15.0 H Plt Count 275 Sodium 138.6 Potassium 4.2 Chloride 102 Carbon Dioxide 30 Anion Gap 7 BUN 21 H Creatinine 1.16 Est GFR ( Amer) > 60 Est GFR (Non-Af Amer) 59 L Glucose 104 Calcium 9.3 06/22/17 06/22/17 06/23/17 14:05 19:34 01:24 Troponin I 0.689 1.070 1.160 NT-Pro-B Natriuret Pep 06/23/17 06/23/17 06/23/17 07:23 07:23 14:55 Troponin I 1.230 1.080 NT-Pro-B Natriuret Pep 19745 H 06/23/17 06/23/17 06/24/17 22:05 23:15 09:03 Troponin I Cancelled 1.110 1.040 NT-Pro-B Natriuret Pep Impressions: Chest X-Ray 06/22/17 10:02 IMPRESSION: Pulmonary edema versus pneumonia. Head CT 06/22/17 10:16 IMPRESSION: 1. No evidence of acute event. 2. Atrophy and minimal chronic small vessel ischemic disease. EVIDENCE OF ACUTE STROKE: NO. Qualifiers - * PATEINT BEING DISCHARGED WITH ANY OF THE FOLLOWING DIAGNOSIS?: Heart Failure HF Pt being discharged on ACEI for LVEF less than 40%?: No Reason(s) for not prescribing ACEI:: Tx not tolerated HF Pt being discharged on ARBS for LVEF less than 40%?: No Reason(s) for not prescribing ARBS:: Tx not tolerated HF Pt with Afib discharged with Warfarin?: No Reason(s) for not prescribing Warfarin:: Not indicated HF Pt discharged on evidence-based Beta Marcelina:: No Reason(s) for not prescribing evidence-based Beta Marcelina:: Tx not tolerated
[2017-06-25] MEDS ORDERED: RANOLAZINE 500 MG TAB.SR.12H PO SCH (22:00)
--- NOTE | 2017-06-25 23:16 | Palliative Consultation Report ---
Consultation From:: [facility] Consult Reason: Palliative care - HPI HPI: Palliative care visit 06/25/17 2:15 PM- 2:50PM Appreciate palliative care consult with this delightful 87 year old gentleman who has advanced heart disease. He was admitted on 06/22 via ER with NSTEMI and pulmonary edema/CHF. Mr. Dubose has responded well to medications , diuresis and rest. He is ready to go home. Mr. Dubose has been advised that he needs further procedures to replace a valve in his heart, but he is refusing to have that done. He states he just wants to go home, appreciates the medications but does not want any intervention. Mr. Dubose lives alone with his daughter and son checking on him daily. He does not feel that he neds help on a dsaily basis but he wants someone to call if he feels he is having another heart attack. He would like to have oxygen available and medications to keep from having pain or anxiety if he does have another episode. Mr. Dubose has a DNR order and wants to maintain that status at home. Daughter, patient and I discussed his options of going home with home health and palliative care as opposed to going home with hospice. Both would support him in different ways. We discussed the difference between comfort measures and goal of keeping him at home vs sending him back to hospital for additional problems. I did tell him that he may remain stable for long enough that hospice might have to discharge him, or yamilex the could revoke hospice services if he wanted more aggressive care in the future. denies any pain now and states his pain was in his right chest and arm which confused him. We discussed this. He is having no dyspnea, feels a little weak and tired but no distress. He is eating well and reports bowels to be working well.He wants to go home now. Onset: Just prior to arrival Onset/Duration: Sudden, Persistent Quality of Pain: No pain, Pressure, Sharp Severity: None, Moderate Pain Level: Denies, 3 Exacerbated by: Movement Past Medical History(Consults) - General Information Source: Patient, Relative, [facility] Records Home Medications: Aspirin [Aspirin 81 mg Chewable Tablet] 81 mg PO DAILY 06/22/17 Furosemide [Lasix 40 mg Tablet] 40 mg PO QAM 06/22/17 Levalbuterol HCl [Xopenex Neb 0.63 mg/3 ml Ampul] 0.63 mg NEB RTQ8HP PRN Multivitamin [Tab-A-Jadiel] 1 tab PO DAILY 06/22/17 Spironolactone [Aldactone 25 mg Tablet] 25 mg PO Q12 06/22/17 Tamsulosin HCl [Flomax 0.4 mg Cap.sr] 0.4 mg PO PCSUPPER 06/22/17 Timolol Maleate [Timoptic 0.5% Oph Soln 5 ml] 1 drop OU QHS 06/22/17 Acetaminophen [Tylenol 325 mg Tablet] 650 mg PO Q4HP PRN tablet 06/25/17 Aspirin [Ecotrin 81 mg EC Tablet] 81 mg PO DAILY tabec 06/25/17 Atorvastatin Calcium [Lipitor 40 mg Tablet] 40 mg PO QHS #30 tablet 06/25/17 Clopidogrel Bisulfate [Plavix 75 mg Tablet] 75 mg PO DAILY #30 tablet 06/25/17 Erythromycin Base [E-Mycin 0.5% Oph Ointment 3.5 gm] 1 applic OU Q6 #1 tube Famotidine [Pepcid 20 mg Tablet] 20 mg PO Q12 #60 tablet 06/25/17 Ranolazine [Ranexa 500 mg Tab.sr] 500 mg PO Q12 #60 tab.sr.12h 06/25/17 Allergies/Adverse Reactions: No Known Allergies Allergy (Verified 06/22/17 09:18) - Social History Lives with: Alone Family History: Reviewed & Not Pertinent, Hypertension Parental Family History Reviewed: No Children Family History Reviewed: No Sibling(s) Family History Reviewed.: No Smoking Status: Former Smoker Last Time Smoked: 1985 Frequency of Alcohol Use: Rare Hx Recreational Drug Use: No Drugs: None Hx Prescription Drug Abuse: No - Past Medical History Cardiac Medical History: Reports: Hx Congestive Heart Failure, Hx Hypertension, Hx Heart Murmur, Other - Severe aortic stenosis, second-degree AV block, PAF Pulmonary Medical History: Reports: Hx COPD EENT Medical History: Reports: None Neurological Medical History: Reports: None. Denies: Hx Cerebrovascular Accident Endocrine Medical History: Reports: None Renal/ Medical History: Reports: None, Hx Benign Prostatic Hyperplasia. Denies: Hx Peritoneal Dialysis Malignancy Medical History: Reports None GI Medical History: Reports: None Musculoskeltal Medical History: Reports Hx Arthritis Skin Medical History: Reports None Psychiatric Medical History: Reports: None Traumatic Medical History: Reports: None Infectious Medical History: Reports: None Hematology: Reports: None - Surgical History Past Surgical History: Reports: None, Hx Abdominal Surgery - b/l hernia repair Review of systems Constitutional: No symptoms reported EENT: No symptoms reported Respiratory: Cough Gastrointestinal: No symptoms reported Geniturinary: No symptoms reported Skin: No symptoms reported Neurological/Psychological: Anxiety Ojective:Exam Vital Signs: Temp Pulse Resp BP Pulse Ox 97.8 F 89 18 109/61 97 06/25/17 15:42 06/25/17 15:42 06/25/17 15:42 06/25/17 15:42 06/25/17 15:42 Intake & Output 06/24/17 06/25/17 06/26/17 06:59 06:59 06:59 Intake Total 1320 1596 438 Output Total 300 350 Balance 1020 1246 438 Weight 76.9 kg 76.9 kg - General General Appearance: Appears well, Alert - Respiratory Respiratory Status: No respiratory distress Chest Status: Nontender Breath sounds: Clear - Cardiovascular Rhythm: Regular Heart Sounds: Normal auscultation - Abdominal Distension: No distension - Extremities Upper extremity: Normal inspection Lower extremities: Normal inspection - Neurological Cognition: Normal Orientation: AAOx4 Cranial nerves: Normal Motor exam: Equal guest relations associate - Psychological Associated symptoms: Normal affect, Anxious Objective-Diagnostic Laboratory: 06/25/17 07:27 06/25/17 07:27 06/25/17 06/25/17 07:27 07:27 WBC 10.9 H RBC 5.09 Hgb 16.2 Hct 47.5 MCV 93 MCH 31.8 MCHC 34.1 RDW 15.0 H Plt Count 275 Sodium 138.6 Potassium 4.2 Chloride 102 Carbon Dioxide 30 Anion Gap 7 BUN 21 H Creatinine 1.16 Est GFR ( Amer) > 60 Est GFR (Non-Af Amer) 59 L Glucose 104 Calcium 9.3 06/22/17 06/22/17 06/23/17 14:05 19:34 01:24 Troponin I 0.689 1.070 1.160 NT-Pro-B Natriuret Pep 06/23/17 06/23/17 06/23/17 07:23 07:23 14:55 Troponin I 1.230 1.080 NT-Pro-B Natriuret Pep 95855 H 06/23/17 06/23/17 06/24/17 22:05 23:15 09:03 Troponin I Cancelled 1.110 1.040 NT-Pro-B Natriuret Pep Plan and Recommendation Plan and Recommendation: Patient and his daughter will discuss the options of home health or hospice with his PCP, Dr. Casanova. I explained that Palliaitve care follows along with home health if consult is received from his PCP, and if hospice is chosen, the goal will be to keep him comfortable at home without repeated hospitalizations. His daughter understood these concepts well and they have my cell phone number if they have any questions. Dasha wants to go home today, will not have oxygen at home, but has not needed while here. He does want it available of he needs in in the future. We discussed that and having medications such as Morphine and Lorazepam available in case of future chest pain. Will follow at home if referral obtained from his PCP. Patient is sure he does not want to go to tertiary cardiac center for valve replacement. He understands his prognosis and says he is just concerned about treating pain or shortness of breath. I gave patient another DNR [place] form to have at home. Appreciate opportunity to participate in care. - Time Spent with Patient Time spent with patient: 30 to 40 Minutes - 35 min with patient and consultation with Maricarmen Kraus NP, hospitalist.
[2017-06-26] MEDS ORDERED: FUROSEMIDE 40 MG TABLET PO SCH (08:00)
[2017-06-26] MEDS ORDERED: ASPIRIN 81 MG TABLET, ENT COATED PO SCH (10:00)
== END 2017-06-25 16:30 | disposition home health service (06) | DRG 280 ==
LOC: ER 09:03 → EH 13:10 → 5 17:59
PROVIDERS: ADMIT Family Medicine; ATTEND Family Medicine
DX: I11.0 Hypertensive heart disease with heart failure (principal); J18.9 Pneumonia, unspecified organism; I21.4 Non-ST elevation (NSTEMI) myocardial infarction; N17.9 Acute kidney failure, unspecified; Z66 Do not resuscitate; I50.43 Acute on chronic combined systolic (congestive) and diastolic (congestive) heart failure; J44.9 Chronic obstructive pulmonary disease, unspecified; I35.0 Nonrheumatic aortic (valve) stenosis; R31.0 Gross hematuria; R79.89 Other specified abnormal findings of blood chemistry; I48.0 Paroxysmal atrial fibrillation; I44.1 Atrioventricular block, second degree; N40.0 Benign prostatic hyperplasia without lower urinary tract symptoms; Z87.891 Personal history of nicotine dependence; Z79.82 Long term (current) use of aspirin; Z79.899 Other long term (current) drug therapy
CPT/HCPCS: 36415; 70450; 71046; 80048; 80053; 81001; 82553; 83880; 84484; 85025; 85027; 87040; 93005; 93010; 93306; 96365; 96375; 99285; J0696; J1650; J1940; J3490